=== PATIENT | female | born 1955 | race Caucasian/White ===

== ENCOUNTER → 2021-01-07 01:51 | Outpatient (CLI) | payer MEDICARE, OTHER, SELFPAY ==
[2021-01-07 18:54] LABS: SARS-CoV-2 RNA PCR Negative
== END ==
PROVIDERS: PCP Physician Assistant; Visit Provider Internal Medicine Gastroenterology
DX: Z01.812 Encounter for preprocedural laboratory examination (principal); Z20.822 Contact with and (suspected) exposure to COVID-19
CPT/HCPCS: C9803; U0003; U0005

== ENCOUNTER 2021-01-11 00:43 | Day surgery (SDC) | payer MEDICARE, OTHER, SELFPAY ==
[2021-01-03 08:29] VITALS: BMI 31.1
--- NOTE | 2021-01-11 08:42 | P.PNAN_ITS ---
Anes - Initial Pre Proc Eval Procedure: Operation Date: 01/11/21 13:00 Proposed Procedures p Screening Colonoscopy - Jordan Lundy MD Date/Time: 01/11/21 08:42 Surgeon: Jordan Lundy MD Pre Op Diagnosis: Neoplasm Screening Patient Data Age: 65 Gender: F Height: 1.65 m Weight: 85 kg Allergies Allergy/AdvReac Type Severity Reaction Status Date / Time No Known Allergies Allergy Mild Verified 01/11/21 11:41 Home Medications Medication Instructions Recorded Confirmed Type albuterol sulfate 1 puff INHALATION DAILY 01/03/21 01/03/21 History amlodipine 5 mg PO DAILY 01/03/21 01/03/21 History bupropion HCl 200 mg PO DAILY 01/03/21 01/03/21 History carvedilol 25 mg PO BID 01/03/21 01/03/21 History fluticasone propionate 1 mcg INTRANASAL DAILY 01/03/21 01/03/21 History hydrochlorothiazide 25 mg PO DAILY 01/03/21 01/03/21 History losartan 100 mg PO DAILY 01/03/21 01/03/21 History omeprazole 40 mg PO DAILY 01/03/21 01/03/21 History trazodone 225 mg PO DAILY 01/03/21 01/03/21 History venlafaxine 225 mg PO DAILY 01/03/21 01/03/21 History Patient hx anesthesia problems: none Family hx anesthesia problems: none [facility] Past Medical History Medical History (Updated 01/11/21 @ 08:42 by Darnell Vazquez MD) Anxiety Depression Hyperlipidemia Hypertension Obesity Surgical History Surgical History (Updated 01/10/21 @ 11:42 by Yaya Mcclain DO) History of hysterectomy Social History Social History Smoking status: Never smoker Alcohol intake: never Substance use type: does not use Living arrangements: with family Spiritual care concerns: No Anes - Eval Final PreProcedure Day of Procedure 01/11/21 08:42 Patient weight: obese Heart: regular rate and rhythm Lungs: clear to auscultation and normal air movement Airway: Mallampati scale class II Neurological: alert and oriented Last oral intake: >/= 8 hours ASA classification: III Emergent: no Anesthetic plan: proceed Anesthesia type and monitoring: general GIVS Informed Consent: The patient's anesthetic plan and its attendant risks and benefits were discussed with the patient/family/POA. Questions were solicited and answers provided to the satisfaction of the patient/family/POA.
[2021-01-11 11:42] VITALS: BP 179/79; PULSE 95; RESP 16; TEMP 36.5; O2SAT 96; BMI 30.1
[2021-01-11] MEDS: LACTATED RINGERS 1,000 ML 150 ML IV CONT (11:54)
--- NOTE | 2021-01-11 12:47 | PM.HPGS ---
History of Present Illness History of Present Illness Consent: Risks, benefits, and alternatives have been discussed and questions answered. Patient agrees to proceed with procedure. Chief complaint: Neoplasm Screening Narrative: Coty Cole is a 65 year old female here for screening colonoscopy, last one more than 10 years ago. Review of Systems Constitutional: Constitutional: Denies headache(s) and Denies weakness Eyes: Eyes: Denies blurry vision ENT: Reports Normal hearing present, Denies headache(s) and Denies neck pain Cardiovascular: Cardiovascular: Denies chest pain and Denies dyspnea Respiratory: Respiratory: Denies dyspnea Gastrointestinal: Gastrointestinal: Reports no additional gastrointestinal complaints Genitourinary: Genitourinary: Denies dysuria Musculoskeletal: Musculoskeletal: Denies neck pain Integumentary/Breasts: Skin/Breast: Denies dry skin Neurologic: Reports Normal hearing present, Denies headache(s) and Denies weakness Psychiatric: Psychiatric: Denies anxiety Endocrine: Endocrine: Denies change in body appearance Hematologic/Lymphatic: Hematologic/Lymphatic: Denies easy bleeding Allergic/Immunologic: Allergic/Immunologic: Denies urticaria PMFSH Past Medical History Medical History (Updated 01/11/21 @ 12:48 by Jordan Lundy MD) Anxiety Colon cancer screening Depression Hyperlipidemia Hypertension Obesity Surgical History Surgical History (Updated 01/10/21 @ 11:42 by Yaya Mcclain DO) History of hysterectomy Social History Social History Smoking status: Never smoker Alcohol intake: never Substance use type: does not use Living arrangements: with family Spiritual care concerns: No Meds Home Medications and Allergies Home Medications Medication Instructions Recorded Confirmed Type albuterol sulfate 1 puff INHALATION DAILY 01/03/21 01/03/21 History amlodipine 5 mg PO DAILY 01/03/21 01/03/21 History bupropion HCl 200 mg PO DAILY 01/03/21 01/03/21 History carvedilol 25 mg PO BID 01/03/21 01/03/21 History fluticasone propionate 1 mcg INTRANASAL DAILY 01/03/21 01/03/21 History hydrochlorothiazide 25 mg PO DAILY 01/03/21 01/03/21 History losartan 100 mg PO DAILY 01/03/21 01/03/21 History omeprazole 40 mg PO DAILY 01/03/21 01/03/21 History trazodone 225 mg PO DAILY 01/03/21 01/03/21 History venlafaxine 225 mg PO DAILY 01/03/21 01/03/21 History Allergies Allergy/AdvReac Type Severity Reaction Status Date / Time No Known Allergies Allergy Mild Verified 01/11/21 11:41 Vital Signs Vital Signs - 24 hr 01/11/21 11:42 Temperature 97.7 F Pulse Rate 95 Respiratory Rate 16 Blood Pressure 179/79 H Pulse Oximetry 96 Exam Const: General: comfortable and no acute distress HENMT: General nose exam: Normal nares present Eyes: General: appearance normal, both eyes and all related structures Neck: Neck: no JVD Resp: Auscultation: clear to auscultation bilaterally Cardio: Rate: regular rate Rhythm: regular rhythm GI: Inspection: non-distended GI Palp: Yes Soft to palpation Skin: General skin exam: normal color Neuro: General: gait normal Speech: normal speech Extrem: General: normal to inspection Psych: Mental Status: mental status grossly normal Assessment and Plan Assessment and plan (1) Colon cancer screening: Code(s): Z12.11 - Encounter for screening for malignant neoplasm of colon Status: Acute Assessment and Plan: proceed with colonoscopy
[2021-01-11 13:30] VITALS: BP 132/65; PULSE 83; RESP 15; O2SAT 100
[2021-01-11 13:40] VITALS: BP 150/67; PULSE 79; RESP 14; O2SAT 98
[2021-01-11 13:50] VITALS: BP 159/72; PULSE 82; RESP 9; O2SAT 100
== END 2021-01-11 14:01 | disposition home or self-care (01) ==
PROVIDERS: PCP Physician Assistant; Visit Provider Internal Medicine Gastroenterology
PROC: 0DJD8ZZ Inspection of Lower Intestinal Tract, Via Natural or Artificial Opening Endoscopic (ICD-10-PCS; CPT 45378; principal; 2021-01-11 13:00)
DX: Z12.11 Encounter for screening for malignant neoplasm of colon (principal); K57.30 Diverticulosis of large intestine without perforation or abscess without bleeding; K64.8 Other hemorrhoids; I10 Essential (primary) hypertension; E78.5 Hyperlipidemia, unspecified; F41.8 Other specified anxiety disorders; E66.9 Obesity, unspecified; Z68.30 Body mass index [BMI] 30.0-30.9, adult
CPT/HCPCS: G0121; J2704; J7120

== ENCOUNTER 2023-01-18 09:29 | Emergency (ER) | payer MEDICARE, OTHER, SELFPAY ==
[2023-01-18] VITALS (9 sets, daily range): BP systolic 117–154; BP diastolic 54–76; PULSE 71–82; RESP 13–24; TEMP 36.3; O2SAT 93–99
--- NOTE | ~2023-01-18 | CT_ITS ---
Non-contrast Head CT History: Dizziness, gait instability. Technique: Axial non-contrast imaging of the brain was performed. Dose reduction technique was used on this scan by utilizing automated exposure control and iterative reconstruction technique. The dose -length product (DLP) was 605.33 mGy-cm. Findings: There is no evidence of intracranial hemorrhage, mass lesion, or acute infarct. Brain par enchyma appears normal. The ventricles and subarachnoid spaces are normal in size. The calvarium ap pears normal. The visualized paranasal sinuses and mastoid air cells are clear. Impression: No significant abnormality seen. Reviewed, dictated and finalized at location . Impression: No significant abnormality seen.
--- NOTE | 2023-01-18 09:35 | ECG_ITS ---
Measurements Intervals [place] Rate: 71 P: 12 WY: 175 QRS: -1 QRSD: 101 T: 64 QT: 385 QTc: 421 Interpretive Statements SINUS RHYTHM DELAYED PRECORDIAL R/S TRANSITION LEFT VENTRICULAR HYPERTROPHY AND ST-T CHANGE BORDERLINE ECG NO PREVIOUS ECG AVAILABLE FOR COMPARISON Electronically Signed On 01-18-2023 12:37:54 CDT by Jose Alejandro Edwards D.O.
[2023-01-18 09:57] LABS: Basophils Absolute Auto 0.1 K/mm3 (0.0-0.1); Basophils Percent Auto 0.8 % (0.2-1.2); Eosinophils Percent Auto 0.1 % (0-4.4); Hematocrit 41.7 % (37.0-47.0); Hemoglobin 14.3 g/dL (12.0-15.0); Immature Granulocyte Absolute 0.04 K/mm3 (0.00-0.031); Immature Granulocyte Percent A 0.4 % (0-0.5); Lymphocytes Absolute Auto 1.85 K/mm3 (0.9-3.2); Lymphocytes Percent Auto 18.6 % (18.3-44.2); Mean Corpuscular HGB Conc 34.3 g/dl (32-36); Mean Corpuscular Hemoglobin 30.5 pg (26-34); Mean Corpuscular Volume 88.9 fl (80-100); Mean Platelet Volume 8.8 fl (7.4-10.4); Monocytes Absolute Auto 0.5 K/mm3 (0.1-0.6); Monocytes Percent Auto 4.8 % (2.6-8.5); Neutrophils Absolute Auto 7.5 K/mm3 (1.3-6.7); Neutrophils Percent Auto 75.3 % (45.5-73.1); Platelet Count Result 370 k/mm3 (150-375); Red Blood Count 4.69 M/mm3 (4.2-5.4); Red Cell Distribution Width 11.9 % (11.5-14.5); White Blood Count 9.9 K/mm3 (4.5-10.0)
[2023-01-18 10:05] LABS: Alanine Aminotransferase 22 U/L (6-35); Albumin Level 4.6 g/dL (3.5-5.1); Alkaline Phosphatase 77 U/L (38-126); Anion Gap 9 mmol/L (8-16); Aspartate Amino Transferase 25 U/L (14-36); Bilirubin,Total 0.6 mg/dL (0.2-1.3); Blood Urea Nitrogen 12 mg/dL (7-17); Calcium 9.4 mg/dL (8.4-10.2); Carbon Dioxide 31 mmol/L (22-30); Chloride 96 mmol/L (98-107); Estimated CRCL calculation 73 ml/min; Estimated Glomerular Filt Rate > 60; Glucose 119 mg/dL (65-110); Potassium 3.4 mmol/L (3.4-5.0); Sodium 136 mmol/L (137-145)
--- NOTE | 2023-01-18 10:08 | ED.DIZZY ---
HPI - Dizziness General Chief Complaint: Syncope Stated Complaint: dizziness Time Seen by Provider: 01/18/23 09:54 History of Present Illness HPI Narrative: 67-year-old female here for evaluation of dizziness for the past 2 days. Patient states that dizziness is there when she turns her head. Described as a room spinning sensation. She additionally notes a ringing sensation in her left ear with some decreased hearing. She denies any falls or loss of consciousness. No visual changes, nausea, vomiting, confusion, unilateral weakness. She has had no gait instability when the dizziness is not there. She states she has been under a lot of stress recently. Related Data Home Medications Medication Instructions Recorded Confirmed albuterol sulfate 90 mcg/actuation 1 puff inhalation DAILY 01/03/21 01/03/21 aerosol inhaler amlodipine 5 mg tablet 5 mg PO DAILY 01/03/21 01/03/21 bupropion HCl 200 mg tablet,12 hr 200 mg PO DAILY 01/03/21 01/03/21 sustained-release carvedilol 25 mg tablet 25 mg PO BID 01/03/21 01/03/21 fluticasone propionate 50 1 mcg intranasal DAILY 01/03/21 01/03/21 mcg/actuation nasal spray,suspension hydrochlorothiazide 25 mg tablet 25 mg PO DAILY 01/03/21 01/03/21 losartan 100 mg tablet 100 mg PO DAILY 01/03/21 01/03/21 omeprazole 40 mg capsule,delayed 40 mg PO DAILY 01/03/21 01/03/21 release trazodone 150 mg tablet 225 mg PO DAILY 01/03/21 01/03/21 venlafaxine 150 mg 225 mg PO DAILY 01/03/21 01/03/21 capsule,extended release 24 hr Allergies Allergy/AdvReac Type Severity Reaction Status Date / Time No Known Allergies Allergy Mild Verified 01/18/23 09:30 Review of Systems Review of Systems: Gen.: Reports dizziness Eyes: Denies eye pain or visual change ENT: Reports left ear fullness and ringing Respiratory: Denies shortness of breath or cough CV: Denies chest pain or palpitations GI: Denies abdominal pain nausea, emesis or diarrhea : denies burning, urgency, frequency or hematuria Musculoskeletal: Denies back pain or muscle pain Neuro: Denies numbness, tingling, weakness or focal weakness Skin: Denies rash Except as documented, all other systems reviewed and negative PMFSH Past Medical History Medical History Anxiety Colon cancer screening Depression Hyperlipidemia Hypertension Obesity Surgical History Surgical History History of hysterectomy Social History Social History Smoking status: Never smoker Alcohol intake: never Substance use type: does not use Living arrangements: with family Spiritual care concerns: No Exam Narrative: APPEARANCE: Well appearing, no pain in distress, well-nourished. Head: Normocephalic and atraumatic. EYES: PERRLA/EOMI, conjunctivae clear NOSE: No nasal drainage EARS: External ear normal in appearance THROAT: Oropharynx is clear. Mucous membranes are moist. NECK: Supple. No adenopathy, no masses. RESPIRATORY: Airway patent, respirations nonlabored. Clear to auscultation bilaterally, no rales, rhonchi, wheezing. CARDIOVASCULAR: Regular rate and rhythm without murmurs, rubs, or gallops. ABDOMINAL: Normoactive bowel sounds. Soft, nontender, nondistended. No rebound tenderness or guarding. MUSCULOSKELETAL: Extremities are warm and well-perfused. Moves all extremities well. No edema. NEURO: Cranial nerves II through XII intact. Normal test of skew. [id number] normal. [id number] normal. Normal speech. No focal neurologic deficits. SKIN: Skin is warm and dry. No rashes. PSYCHIATRIC: Normal affect/mood. Course Vital Signs Vital signs: Vital Signs Temperature 97.3 F L 01/18/23 09:43 Pulse Rate 82 01/18/23 09:43 Respiratory Rate 14 01/18/23 09:43 Blood Pressure 144/65 H 01/18/23 09:43 Pulse Oximetry 99 01/18/23 09:43 Oxygen Delivery Room Air 01/18/23 09:43 Temperature 97.
[2023-01-18] MEDS: SODIUM CHLORIDE 0.9% IV 1,000 ML 999 ML IV CONT (10:23)
[2023-01-18] MEDS: MECLIZINE HCL 25 MG TABLET PO (10:23)
== END 2023-01-18 12:56 | disposition home or self-care (01) ==
PROVIDERS: Emergency Medicine; Emergency Provider Physician Assistant; PCP Family Medicine
DX: H81.10 Benign paroxysmal vertigo, unspecified ear (principal); I10 Essential (primary) hypertension; F41.9 Anxiety disorder, unspecified; F32.A Depression, unspecified; Z79.51 Long term (current) use of inhaled steroids
CPT/HCPCS: 36415; 70450; 80053; 85025; 93005; 96360; 96361; 99284; A9270; J7030

== ENCOUNTER 2024-03-16 09:10 | Emergency (ER) | payer OTHER, SELFPAY ==
[2024-03-16] VITALS (9 sets, daily range): BP systolic 117–140; BP diastolic 64–75; PULSE 66–75; RESP 11–18; TEMP 36.7–36.8; O2SAT 96–98
--- NOTE | 2024-03-16 09:58 | ECG_ITS ---
SEE SCANNED COPY FOR CONFIRMED REPORT MTDD
--- NOTE | 2024-03-16 10:14 | ED.GENADULT ---
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 She has help in the week but none over the weekend. She recently moved and she the one that is responsible for a lot. She states that she hasn't wanted to eat / maybe a little nausea at times no vomiting NO fever/chills/ cough/ SOB/ CP / no numbness tingling <Yolanda Dominguez February, - Last Filed: 03/16/24 14:03> Related Data Home medications: Home Medications Medication Instructions Recorded Confirmed albuterol sulfate 90 mcg/actuation 1 puff inhalation DAILY 01/03/21 01/03/21 aerosol inhaler amlodipine 5 mg tablet 5 mg PO DAILY 01/03/21 01/03/21 carvedilol 25 mg tablet 25 mg PO BID 01/03/21 01/03/21 fluticasone propionate 50 1 mcg intranasal DAILY 01/03/21 01/03/21 mcg/actuation nasal spray,suspension losartan 100 mg tablet 100 mg PO DAILY 01/03/21 01/03/21 trazodone 150 mg tablet 225 mg PO DAILY 01/03/21 01/03/21 venlafaxine 150 mg 150 mg PO DAILY 12/26/23 12/26/23 capsule,extended release 24 hr <Yolanda Dominguez February, - Last Filed: 03/16/24 14:03> Allergies/adverse reactions: Allergies Allergy/AdvReac Type Severity Reaction Status Date / Time No Known Allergies Allergy Mild Verified 03/16/24 09:11 <Yolanda Dominguez February, PROCESSING MANAGER - Last Filed: 03/16/24 14:03> Review of Systems Review of Systems: CONSTITUTIONAL: Denies fever, chills, or sweats. EYES: Denies visual changes, redness, or discharge. ENT: Denies rhinorrhea, congestion, sore throat, or otalgia. CARDIOVASCULAR: Denies chest pain, palpitations, or edema. RESPIRATORY: Denies cough or dyspnea. GASTROINTESTINAL: Denies abdominal pain, nausea, vomiting, or diarrhea. GENITOURINARY: Denies dysuria or hematuria. SKIN: Denies rash or itching. MUSCULOSKELETAL: Denies back pain, joint pain, or myalgia. NEUROLOGIC: Denies headache, numbness, dizziness, or weakness. PSYCHIATRIC: Reports increased anxiety/ increased stress <Yolanda Donald APRN - Last Filed: 03/16/24 14:03> PMFSH Past Medical History Medical History: Medical History Anxiety Depression GERD (gastroesophageal reflux disease) Hyperlipidemia Hypertension <Yolanda Donald APRN - Last Filed: 03/16/24 14:03> Surgical History Surgical History: Surgical History H/O left knee surgery (~2005) History of hysterectomy (~2003) Hx of tonsillectomy <Yolanda Donald APRN - Last Filed: 03/16/24 14:03> Family History Family History: Family History Father Cancer Brain, unknown type. Grandparent Diabetes mellitus Mother Lymphoma <Yolanda Donald APRN - Last Filed: 03/16/24 14:03> Social History Social History: Social History Smoking status: Never smoker Alcohol intake: never Substance use type: does not use Living arrangements: with family Spiritual care concerns: No <Yolanda Donald APRN - Last Filed: 03/16/24 14:03> Exam Narrative: GENERAL: Well-appearing, well-nourished, and in no acute distress. HEAD: Normocephalic, atraumatic. EYES: PERRLA and EOMI. ENT: Nares clear, no rhinorrhea or epistaxis. Mucous membranes moist. Oropharynx without tonsillar hypertrophy exudate or other lesions. NECK: Supple. No adenopathy or masses. No carotid bruits or JVD CHEST: Clear to auscultation. No respiratory dist
[2024-03-16 10:21] LABS: Basophils Percent Auto 0.3 % (0.2-1.2); Hematocrit 38.2 % (37.0-47.0); Hemoglobin 13.2 g/dL (12.0-15.0); Immature Granulocyte Absolute 0.02 K/mm3 (0.00-0.031); Immature Granulocyte Percent A 0.3 % (0-0.5); Lymphocytes Percent Auto 25.2 % (18.3-44.2); Mean Corpuscular HGB Conc 34.6 g/dl (32-36); Mean Corpuscular Hemoglobin 30.3 pg (26-34); Mean Corpuscular Volume 87.8 fl (80-100); Mean Platelet Volume 8.8 fl (7.4-10.4); Monocytes Absolute Auto 0.6 K/mm3 (0.1-0.6); Monocytes Percent Auto 10.1 % (2.6-8.5); Neutrophils Absolute Auto 3.8 K/mm3 (1.3-6.7); Neutrophils Percent Auto 64.1 % (45.5-73.1); Platelet Count Result 310 k/mm3 (150-375); Red Blood Count 4.35 M/mm3 (4.2-5.4); Red Cell Distribution Width 12.1 % (11.5-14.5)
[2024-03-16 10:28] LABS: Appearance Urine Cloudy (Clear); Bacteria Urine 4+ /hpf; Bilirubin Urine Negative (Negative); Blood Urine 1+ (Negative); Color Urine Dark Yellow (Yellow); Glucose Urine UA Negative (Negative); Ketones Urine Negative (Negative); Leukocyte Esterase Ur 3+ LEU/UL (Negative); Nitrate Urine Positive (Negative); Non Pathogenic Casts 0-2; Protein Urine Trace mg/dL (Negative); Specific Grav Ur 1.015 (1.001-1.035); Squamous Epithelial Cell Urine Moderate /hpf (Few); WBC Urine >100 /hpf (0-3); pH Urine 8.5 (5.0-9.0)
[2024-03-16 10:33] LABS: Alanine Aminotransferase 17 U/L (6-35); Albumin Level 4.4 g/dL (3.5-5.1); Alkaline Phosphatase 81 U/L (38-126); Anion Gap 7 mmol/L (4-12); Aspartate Amino Transferase 25 U/L (14-36); Bilirubin,Total 0.6 mg/dL (0.2-1.3); Blood Urea Nitrogen 11 mg/dL (7-17); Calcium 9.4 mg/dL (8.4-10.2); Carbon Dioxide 28 mmol/L (22-30); Chloride 94 mmol/L (98-107); Estimated CRCL calculation 64 ml/min; Estimated Glomerular Filt Rate > 60; Glucose 116 mg/dL (65-110); Lipase 53 U/L (23-300); Potassium 4.1 mmol/L (3.4-5.0); Sodium 129 mmol/L (137-145)
[2024-03-16 10:35] LABS: Add Urine Microscopic? YES
[2024-03-16 10:45] LABS: Troponin I < 0.012 ng/mL (0.000-0.034)
[2024-03-16 10:59] LABS: Influenza A QL RT-PCR Negative (Negative); Influenza B QL RT-PCR Negative (Negative); RSV RNA, RT-PCR Negative (Negative); SARS-CoV-2 RNA PCR Negative (Negative)
[2024-03-16] MEDS: SODIUM CHLORIDE 0.9% IV 1,000 ML 999 ML IV CONT (11:00)
[2024-03-16 13:22] LABS: Anion Gap 7 mmol/L (4-12); Blood Urea Nitrogen 10 mg/dL (7-17); Calcium 9.1 mg/dL (8.4-10.2); Carbon Dioxide 27 mmol/L (22-30); Chloride 98 mmol/L (98-107); Estimated CRCL calculation 72 ml/min; Estimated Glomerular Filt Rate > 60; Glucose 100 mg/dL (65-110); Potassium 3.7 mmol/L (3.4-5.0); Sodium 132 mmol/L (137-145)
== END 2024-03-16 13:48 | disposition home or self-care (01) ==
PROVIDERS: Emergency Provider Nurse Practitioner Family; PCP Family Medicine
DX: N30.01 Acute cystitis with hematuria (principal); E86.0 Dehydration; Z11.52 Encounter for screening for COVID-19; I10 Essential (primary) hypertension; E78.5 Hyperlipidemia, unspecified; K21.9 Gastro-esophageal reflux disease without esophagitis; F41.9 Anxiety disorder, unspecified; F32.A Depression, unspecified; Z90.710 Acquired absence of both cervix and uterus; Z79.899 Other long term (current) drug therapy
CPT/HCPCS: 36415; 80048; 80053; 81001; 83690; 84484; 85025; 87077; 87086; 87088; 87186; 87637; 93005; 96361; 96365; 99284; J0696; J7030

== ENCOUNTER 2025-02-11 09:15 | Outpatient (CLI) | payer MEDICARE, SELFPAY ==
--- NOTE | ~2025-02-11 | CT_ITS ---
CT of the Abdomen and Pelvis: Indication: Abdominal Pain Technique: 2.5 mm axial scans were obtained through the abdomen and pelvis following intravenous adm inistration of 100 cc of Omnipaque 350. Dose reduction technique was used on this scan by utilizing a utomated exposure control and iterative reconstruction technique. The dose-length product (DLP) was 1 020.11 mGy-cm. Findings: Scans through the lung bases demonstrate 3 mm left lower lobe nodule. There is right middl e lobe scarring or atelectasis. The liver, spleen, pancreas, gallbladder, right adrenal gland, and kidneys are within normal limits. 2.6 cm left adrenal nodule is unchanged. No evidence of aortic aneurysm. No lymphadenopathy. No bowel obstruction or bowel wall thickening. Prominent stool suggests constipation. Mild haziness a nd shotty nodes in the central mesentery suggest mesenteric panniculitis. Images through the pelvis were performed. Probable mild diffuse bladder wall thickening noted. No pel yasmin mass. No ascites. Impression: Constipation. Possible cystitis. Correlate with urinalysis. Mesenteric panniculitis. Stable left adrenal nodule, compatible with benign lesion given stability. Reviewed, dictated and finalized at location . Impression: Constipation. Possible cystitis. Correlate with urinalysis. Mesenteric panniculitis. Stable left adrenal nodule, compatible with benign lesion given stability.
--- OUTSIDE RECORDS SUMMARY | 2025-02-11 09:44 | XMS_ITS | Encounter Summary ---
Author Name [facility] Organization [facility] Address [address] [place] [address] Care Team Providers Care Soap Mixer Name Role Phone WALDEMAR PRUITT Primary Care Provider Unavailkatey e Insurance Providers: All historical and current Section Date Range: From patient's date of to the date document was created. This section includes the names of all active insurance providers for the patient. Insurance Provider Type of Coverage Plan Name Start of Policy Coverage End of Policy Coverage Group Number Member ID Insurance Provider's Telephone Number Policy Baldwin's Name Patient's Relationship to Policy Baldwin [employer] (WNR) MEDICARE ADVANTAGE MCR ([facility]) Oct 28, 2023 [id number] [phone] MARINO BOOTH PATIENT -FO R-LIFE [place] RE FOR LIFE [facility] Jul 28, 2021 FOR LIFE [id number] MARINO BOOTH PATIENT -FO R-LIFE [place] RE FOR LIFE [facility] Jul 28, 2021 FOR LIFE [id number] [phone] KIM BOOTH [facility] ([facility]) MEDICARE ADVANTAGE MCR ([facility]) Jul 28, 2021 [id number] MARINO BOOTH PATIENT Selected Encounter This section includes the information on record at OR for the Encounter. Date/Time Encounter Type Encounter Description Reason Pro vider Source Dec 22, 2024 01:00 PM Outpatient Encounter ADMIN PAT ACTIVTIES (MASNONCT) IHE Encounter Template Text not used by OR Plan of Treatment: Future Appointments (+ 6 months) and Future Tests (+/- 45 days) The Plan of Treatment section includes future care activities for the patient from all OR [facility]. This section includes future appointments and future orders which are active, pending or scheduled. Future Appointments This section includes appointments that were scheduled to occur 6 months from the date of the Encounter, up to a maximum of 20 appointments. The data comes from all OR treatment facilities. Appointment Date/Time Appointment Type Appointme nt Facility Name Jan 07, 2025 10:00 AM AMBULATORY - NONE [facility] Jan 07, 2025 10:00 AM AMBULATORY - PSYCHIATRY [facility] Jan 11, 2025 01:30 PM AMBULATORY - NONE [facility] Jan 11, 2025 01:30 PM AMBULATORY - PSYCHIATRY [facility] Jan 21, 2025 10:00 AM AMBULATORY - NONE [facility] Jan 21, 2025 10:00 AM AMBULATORY - PSYCHIATRY [facility] Jan 26, 2025 02:00 PM AMBULATORY - NONE [facility] Jan 26, 2025 02:00 PM AMBULATORY - PSYCHIATRY [facility] Feb 16, 2025 10:00 AM AMBULATORY - PSYCHIATRY [facility] Feb 16, 2025 10:00 AM AMBULATORY - NONE [facility] March 23, 2025 12:30 PM AMBULATORY - PSYCHIATRY [facility] Encounter Notes: All associated encounter notes This section contains the clinical notes associated to the Encounter. Date/Time Encounter Note(s) Provider Source Dec 22, 2024 01:05 PM CAREGIVER CERTIFIC ATE: LOCAL TITLE: [facility] INDIVIDUAL PSYCHOTHERAPY NOTE STANDARD TITLE: CAREGIVER CERTIFICATE DATE OF NOTE: DEC 22, 2024@13:05 ENTRY DATE: DEC 22, 2024@13:05:23 AUTHOR: RICHARD GRIDER EXP COSIGNER: URGENCY: STATUS: COMPLETED [facility] - FOLLOW UP PSYCHOLOGY VISIT VIRTUAL PSYCHOTHERAPY PROGRAM FOR CAREGIVERS ([facility]) Patient identity was verified. Encounter was conducted via Telehealth Modality. Verbal informed consent was obtained from the Caregiver at the time of the encounter. CAPS-Lock procedure was completed to secure the virtual medical room. TYPE OF ENCOUNTER: [facility] VISIT Psychotherapy LENGTH OF ENCOUNTER: 45 minutes DATE: Nov TREATMENT GOAL(S): To identify strategies for improving connection with self and others and increase well-being. STRENGTHS: The CG appears to be amiable and motivated for treatment at this time. CONTENT/ISSUES ADDRESSED: The CG presented to this session on time and was seated in her living room at home, with her 3-year-old granddaughter seated beside her. She reported recovering from a bad bout of the flu this month, which has caused her to lose strength and energy. She reports her has also lost strength and functioning since being sick, and is not able to do basic tasks he was previously capable of, such as taking out the trash. She reported struggling with seasonal mood decline impacting her level of patience and irritability, though she reports feeling better today with warmer weather and sunshine. She shared her has become more passive and withdrawn, and has been displaying unusual compulsive behaviors such as weighing himself 10 times a day. The CG reports she does not know who to discuss his dementia symptoms with as he continues to decline. She was encouraged to connect with her 's new Geriatrics PCP and/or her [facility] coordinator to explore additional educational resources about dementia. The CG reports her daughter, Rosio, recently got her real estate license and will be helping to sell the CG's old house. INTERVENTIONS UTILIZED: Mindfulness-Based Cognitive Therapy (MBCT). Perioperative Educator guided the client's self-exploration and encouraged space for reflection and insight. Explored interpersonal dynamics in family relationships. Normalized stressors and reflected strengths. Elicited coping strategies. RESPONSE TO INTERVENTION: No adverse reactions. The client was engaged and collaborative throughout this session. MENTAL STATUS EXAMINATION WITH SAFETY ASSESSMENT/PLANNING: -Orientation: person, place, time -Mood was anxious -Affect: full; congruent with stated mood and symptoms. -Psychomotor: was relatively calm and responsive. -Speech: normal rate, rhythm, and volume. -Stream of Thought: maintained focus on topics and responded appropriately to questions. -Thought Content: no evidence of a formal thought disorder. -Insight and judgment: good -Fund of information: grossly intact; no remote memory impairments were noted. -Active suicidal ideation, planning, and intent was denied. Active homicidal ideation was denied. Protective factors were identified. SUICIDALITY/HOMICIDALITY: [x] asymptomatic [ ] current passive ideation [ ] current active ideation [ ] current plan [ ] meets criteria for involuntary admission RISK FACTORS: [ ] ETOH or Other Drug Abuse [ ] Hopelessness [ ] Impulsivity [x] Mood Exacerbation PROTECTIVE FACTORS: [x] Evidence of accessible and positively motivated social supports [x] Therapeutic alliance with a mental health professional [ ] Children dependent on the patient for primary care [x] Future-oriented plans and commitments [x] Personal, Cultural, or Yazidism Beliefs for Self-Preservation ASSESSMENT OF SUICIDE RISK: Low ASSESSMENT OF HOMICIDE RISK: Low IMPRESSION (DSM5 Criteria): Persistent Depressive Disorder (dysthymia; 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 RTC on 01/07 @ 1000. /es/ RICHARD GRIDER PSYCHOLOGIST Signed: 12/23/2024 07:53 RICHARD GRIDER [facility]
--- OUTSIDE RECORDS SUMMARY | 2025-02-11 09:44 | XMS_ITS | Clinical Summary ---
Author Organization [facility] [place] [address] [facility] Address [address] [place] [address] Care Team Providers Care Cartoonist Special Effects Name Role Phone Gerald De La Cruz MD Primary Care Provider Allergies No known active allergies Medications venlafaxine XR (EFFEXOR-XR) 150 mg 24 hr capsule 0 Active cholecalciferol (VITAMIN D-3) 5,000 unit capsule Take 1 capsule (5,000 Units total) by mouth daily Active cyanocobalamin (Vitamin B-12) 1,000 mcg tablet Take 1 tablet (1,000 mcg total) by mouth daily Active multivitamin with minerals tablet Take 1 tablet by mouth daily Active potassium 99 mg tablet Take by mouth Active triamcinolone (NASACORT) 55 mcg nasal inhalerIndications :Allergic Rhinitis,Chronic Non-Allergic Rhinitis Administer 2 sprays into each nostril daily Can increase to twice daily if symptoms persist 16.9 mL 11 2 Active cetirizine (ZyrTEC) 10 mg tabletIndications: Chronic Idiopathic Urticaria Take 1 tablet (10 mg total) by mouth 2 (two) times a day Can increase to 4 times daily for urticaria/myrtle oedema 60 tablet 11 2 Active traZODone (DESYREL) 150 mg tabletIndications: Moderate episode of recurrent major depressive disorder (HCC) Take 1 tablet (150 mg total) by mouth nightly at bedtime 90 tablet 3 3 Active buPROPion XL (WELLBUTRIN XL) 150 mg 24 hr tabletIndications: Moderate episode of recurrent major depressive disorder (HCC) Take 1 tablet (150 mg total) by mouth every morning 30 tablet 3 4 025 Active lidocaine (LIDODERM) 5 %Indications:Chron ic midline thoracic back pain Place 1 patch on the skin daily 30 patch 1 4 Active carvediloL (COREG) 25 mg tablet TAKE 1 TABLET(25 MG) BY MOUTH TWICE DAILY 200 tablet 1 4 Active amLODIPine (NORVASC) 10 mg tablet TAKE 1 TABLET(10 MG) BY MOUTH DAILY 90 tablet 1 4 Active rosuvastatin (CRESTOR) 20 mg tabletIndications: Mixed hyperlipidemia TAKE 1 TABLET(20 MG) BY MOUTH DAILY 90 tablet 1 4 Active omeprazole (PriLOSEC) 40 mg capsule TAKE 1 CAPSULE(40 MG) BY MOUTH DAILY 90 capsule 3 5 Active hyoscyamine (LEVSIN) 0.125 mg SL tablet Take 1 tablet (0.125 mg total) by mouth every 6 (six) hours as needed for cramping or diarrhea 30 tablet 3 5 Active losartan (COZAAR) 100 mg tablet Take 1 tablet (100 mg total) by mouth daily 90 tablet 3 5 Active Active Problems Problem Noted Date Diagnosed Date Encounter for Medicare annual wellness exam 06/28 Assessment & Plan (07/13/2024 10:19 AM CDT): A(n) yearly Medicare Annual Wellness Visit has been performed today. Coty Booth is not up to date on screening tests. She is in need of DEXA, Breast cancer screening, and Cholesterol screening. She is not up to date on needed preventative vaccinations; She is in need of Influenza. We discussed healthy lifestyle habits, educational material has been given. Medications reviewed, changes documented as per the medical record and discussed with patient along with risks vs benefits. Specific topics reviewed: drugs, ETOH, and tobacco, importance of regular dental care, importance of regular exercise, importance of varied diet, limit TV, media violence, minimize junk food, and seat belts. Return in 1 month Chronic thoracic back pain 04/02/2024 Assessment & Plan (04/02/2024 2:07 PM CDT): Patient denies thoracic back pain today. Will continue to monitor Class 1 obesity due to exces s calories without serious comorbidity with body mass index (BMI) of 30.0 to 30.9 in adult 03/05/2023 Assessment & Plan (04/14/2023 11:33 AM CDT): BMI Follow-up includes: nutrition counseling, exercise counseling, and education provided. Irritable bowel syndrome 05/01/2022 Assessment & Plan (05/01/2022 11:20 AM CDT): She has chronic abdominal pain with associated change in bowel habits. She reportedly had a colonoscopy few years ago at [facility]. She takes Levsin as needed with good results. She was advised to continue Levsin and probiotic. I will obtain and review the previous colonoscopy report. Deviated nasal septum 01/25/2022 Sciatica, right side 01/25/2022 Cough 11/14/2020 Assessment & Plan (04/02/2024 2:13 PM CDT): Patient states she had a history of asthma when she was in the when she was younger. Has not used an inhaler for a long time. Upon chart review I found a CT of her chest from 2020 that was done from a previous provider. It showed: a nonspecific density with mild volume loss of the right middle lobe along with tiny punctuate noncalcified nodules of the right upper lobe. Possibility of a central obstructing process right middle lobe can not be excluded. The tiny densities of the right upper lobe could relate to infection or possibly, a neoplasm. Bronchoscopy in 3-[address] follow-up of the right upper lobe punctuate nodules recommended Patient states she never had a follow-up CT because l ots of things happened eventually changed providers and follow-up was never done. She is continuing to complain of a chronic cough. Will order a follow-up chest CT due to cough and findings on CT Assessment & Plan (12/04/2020 8:21 PM MANAGER ENTERPRISE): Check CXR Recommend referral to pulmonary Medicare annual wellness visit, subsequent 10/09 Assessment & Plan (01/25/2022 6:21 PM CDT): A initial Medicare Annual Wellness Visit has been performed today. Coty Booth is not up to date on screening tests. She is in need of DEXA, Breast cancer screening, Hepatitis C and Colon cancer screening- these have been ordered. She is up to date on needed preventative vaccinations. Labs as ordered Look into available computer security specialist in the area. Hopefully will be able to set up with a [facility] provider but there may be some outside the group as well Reviewed medications, medical history. Continuing the current regimen for now Having a director of strategic initiatives eventually will probably be a good move as well. Continue p.r.n. Levsin and omeprazole. If diverticulitis symptoms start to recur, it would be best to follow-up sooner rather than later. If we catch it early, we may be able to avoid any kind of hospital stay, surgical risk etc.. Assessment & Plan (10/09/2020 9:10 AM MANAGER ENTERPRISE): Encouraged healthy lifestyle, good nutrition and exercise. Encouraged Calcium and Vitamin D and weight bearing exercise for bone health. Reviewed immunizations. Reviewed age appropirate screenings. Medicare Wellness Documentation is completed within the chart Breast cancer screening by mammogram 10/09/2020 Assessment & Plan (10/09/2020 9:10 AM MANAGER ENTERPRISE): Mammogram order provided Myopia 10/08/2020 Combined forms of age-related cataract 0 Presbyopia 10/08/2020 BMI 30.0-30.9,adult 08/15/2020 Assessment & Plan (09/30/2020 11:53 AM MANAGER ENTERPRISE): Obesity is unchanged. Discussed the patient's BMI. The BMI is above average. BMI management plan is completed. BMI Follow-up includes: nutrition counseling, exercise counseling and education provided. Assessment & Plan (08/15/2020 3:06 PM CDT): Obesity is unchanged. Discussed the patient's BMI. The BMI is above average. BMI management plan is completed. BMI Follow-up includes: nutrition counseling, exercise counseling and education provided. Seasonal allergies 07/23/2020 Assessment & Plan (04/02/2024 2:09 PM CDT): Seasonal allergies and chronic cough. Will refer to Allergy for testing Assessment & Plan (07/23/2020 6:28 PM CDT): Start antihistamine (Claritin OR Zyrtec), Mucinex 12hour and Steroid nasal spray (Flonase). Push fluids. Rest. Supportive care. If sxs worsen or don\'t improve, pt is to followup in the office. Gastroesophageal reflux disease without esophagi tis 04/23/2020 Assessment & Plan (05/01/2022 11:21 AM CDT): Chronic. Intermittently symptomatic. She was counseled about diet and eating habits. Advised to continue omeprazole 40 mg daily Assessment & Plan (10/09/2020 9:09 AM MANAGER ENTERPRISE): Continue PPI Assessment & Plan (04/23/2020 8:35 PM CDT): Discussed GERD at length including anatomy, behavioral changes (raise HOB, meal timings), dietary changes and medication options. Reviewed risks, benefits alternatives, side effects and proper use. Followup if sxs worsen or has hematochezia or hematemeis. Start pPI Slow transit constipation 04/23/2020 Assessment & Plan (10/09/2020 9:09 AM MANAGER ENTERPRISE): Increase fiber, exercise, water. Add stool softner.bid If sxs persist, may use Miralax. Assessment & Plan (04/23/2020 8:35 PM CDT): Increase fiber, exercise, water and colace. Reviewed warning signs of an acute abdomen Obesity (BMI 30-39.9) 04/09/2019 Assessment & Plan (10/10/2023 1:46 PM MANAGER ENTERPRISE): BMI 30.4 Discussed diet modifications including increasing protein intake, decreasing added sugars, adding keto options - bread, to help with weight loss. Discussed risks of weight loss medications for someone who has a normal A1c, at risk for hypoglycemia and falls (sonia - reliant on her for ADLs due to severe dementia), as well causing dehydration (phentermine) which may worsen kidney function. Pt expressed understanding and agrees to adjust diet to start and follow up. Assessment & Plan (09/30/2020 11:53 AM MANAGER ENTERPRISE): Obesity is unchanged. Discussed the patient's BMI. The BMI is above average. BMI management plan is completed. BMI Follow-up includes: nutrition counseling, exercise counseling and education provided. Assessment & Plan (01/22/2020 8:08 AM CDT): Obesity is unchanged. Discussed the patient's BMI. The BMI is above average. BMI management plan is completed. BMI Follow-up includes: nutrition counseling, exercise counseling and education provided. Assessment & Plan (09/04/2019 9:51 PM MANAGER ENTERPRISE): Obesity is unchanged. Discussed the patient's BMI. The BMI is above average. BMI management plan is completed. BMI Follow-up includes: nutrition counseling, exercise counseling and education provided. Assessment & Plan (04/09/2019 3:02 PM CDT): Obesity is unchanged. Discussed the patient's BMI. The BMI is above average; BMI management plan is completed. General weight loss/lifestyle modification strategies discussed (elicit support from others; identify saboteurs; non-food rewards, etc). Encouraged increased exercise. Pre-diabetes 04/09/2019 Assessment & Plan (10/09/2020 9:10 AM MANAGER ENTERPRISE): Pre-diabetes is a precursor to Dm. Stressed importance of working on diet (decrease your simple sugars and one carbohydrate with each meal) and increase you exercise to achieve weight loss and this will help prevent you from progressing to diabetes. Assessment & Plan (09/04/2019 9:54 PM MANAGER ENTERPRISE): This is a significant, separately identifiable problem that was evaluated and managed on the same day as the wellness exam Pre-diabetes is a precursor to Dm. Stressed importance of working on diet (decrease your simple sugars and one carbohydrate with each meal) and increase you exercise to achieve weight loss and this will help prevent you from progressing to diabetes. Assessment & Plan (04/11/2019 3:19 PM CDT): Pre-diabetes is a precursor to Dm. Stressed importance of working on diet (decrease your simple sugars and one carbohydrate with each meal) and increase you exercise to achieve weight loss and this will help prevent you from progressing to diabetes. Mixed hyperlipidemia 04/09/2019 Assessment & Plan (04/02/2024 2:08 PM CDT): Stable. Can continue rosuvastatin. Follow up with Dr. De La Cruz for med check and physical Assessment & Plan (10/09/2020 9:10 AM MANAGER ENTERPRISE): Encouraged patient to follow fat/low chol diet like the Mediterranean diet. Increase good fats in the diet. Increase exercise. Monitor labs as needed. Assessment & Plan (09/04/2019 9:52 PM MANAGER ENTERPRISE): Encouraged patient to continue low fat/low chol diet. Continue exercise. Increase good fats in the diet. Monitor labs as needed. D Assessment & Plan (04/11/2019 3:19 PM CDT): Encouraged patient to continue low fat/low chol diet. Continue exercise. Increase good fats in the diet. Monitor labs as needed. Primary osteoarthritis 08/04/2018 Moderate episode of recurrent major depressive d isorder 06/03/2017 Overview (08/29/2020): managed by her psychiatrist Assessment & Plan (10/09/2020 9:11 AM MANAGER ENTERPRISE): Managed by her psychiatrist Menopause 01/30/2017 Mixed anxiety depressive disorder 03/13/2014 Overview (01/30/2017): Depression with anxiety Assessment & Plan (01/24/2020 1:39 PM CDT): Provided names of new psychiatrists in the area. Provided names of counselors in the area. Encouraged to establish with a new provider to try to adjust her meds. If has increased sxs or s/h thoughts she is to call immediately. Encouraged to get out daily to walk the dog as will help with her mental health too. Assessment & Plan (09/04/2019 9:54 PM MANAGER ENTERPRISE): This is a significant, separately identifiable problem that was evaluated and managed on the same day as the wellness exam No suicidal or homicidal thoughts. She is to call immediately or go to ER if occurs. Discussed at length considering changing the situation that is contributing to her stress. She will consider. Encouraged to continue to follow with psychiatrist as she is on a combination the I don't usually prescribe. Provided names/listing of pyschiatrists and counselors in the area. Assessment & Plan (04/11/2019 3:19 PM CDT): Stable with current regimen Atopic rhinitis 03/13/2014 Overview (01/31/2017): Allergic rhinitis Hypertension 03/13/2014 Overview (01/31/2017): HTN (hypertension) Assessment & Plan (04/02/2024 2:07 PM CDT): Increase amlodipine to 10 mg once daily. Continue to monitor blood pressure at home if able. Follow up 2-[address] De La Cruz for annual physical Assessment & Plan (11/14/2020 10:06 AM MANAGER ENTERPRISE): Readings are high at home but unsure if cuff is accurate. She will come in tomorrow to calibrate the cuff before adjusting the medication. Assessment & Plan (10/09/2020 9:12 AM MANAGER ENTERPRISE): This is a significant, separately identifiable problem that was evaluated and managed on the same day as the wellness exam Bp is stable/in acceptable range for any co-morbidities. Encouraged to limit sodium intake and exercise for weight control. Continue losartan and HCTZ, coreg and amlodipine. Record at home and call in a few weeks with the ambulatory readings. Assessment & Plan (09/04/2019 9:51 PM MANAGER ENTERPRISE): Bp is stable/in acceptable range for any co-morbidities. Encouraged to limit sodium intake and exercise for weight control. Assessment & Plan (04/11/2019 3:18 PM CDT): Bp is stable/in acceptable range for any co-morbidities. Encouraged to limit sodium intake and exercise for weight control. Vitamin D deficiency Resolved Problems Problem Noted Date Diagnosed Date Resolved Date Closed fracture of lateral malleolus 01/25/2022 04/02/2024 Diverticulitis 01/25/2022 04/02/2024 Gastro-esophageal reflux dis ease with esophagitis 01/20/2021 05/01/2022 Sensation of lump in throat 01/20/2021 04/02/2024 Colon cancer screening 10/09/202004/02 Assessment & Plan (10/09/2020 9:10 AM MANAGER ENTERPRISE): Refer for screening colonoscopy Hearing loss of left ear due to cerumen impaction 09/30/2020 04/02/2024 Assessment & Plan (10/09/2020 9:12 AM MANAGER ENTERPRISE): This is a significant, separately identifiable problem that was evaluated and managed on the same day as the wellness exam Start otc DeBrox as plug appears very hard. Followup in a few weeks to wash ears in the office is sxs persist. Chronic pain of right thumb 08/15/2020 04/02/2024 Assessment & Plan (09/25/2020 9:38 PM MANAGER ENTERPRISE): May use NSAID and ice but recommend referral for definitive treatment. Will hold off on xrays and defer to Ortho since there is no known injury. Need for immunization against influenza 08/15/2020 10/09/2020 Assessment & Plan (09/25/2020 9:39 PM MANAGER ENTERPRISE): Updated in office today Generalized abdominal pain 04/23/2020 0 04/02/2024 Assessment & Plan (04/23/2020 8:33 PM CDT): Sxs of GERD and constipation. Will focus on these dx and if sxs persist, may need additional workup Gastritis 01/24/2020 04/02/2024 Assessment & Plan (05/01/2022 11:23 AM CDT): She reportedly had endoscopy at [facility] that revealed gastritis . Takes PPI and p.r.n. Levsin. I will obtain and review the previous endoscopy report. Advised to continue p.r.n. Levsin and PPI. Assessment & Plan (01/24/2020 1:47 PM CDT): Start NSAIDs Will monitor. If sxs persists, may consider imaging/referral to PT but will wait until after COVID BMI 32.0-32.9,adult 01/22/2020 08/15/20 Assessment & Plan (01/22/2020 8:09 AM CDT): Obesity is unchanged. Discussed the patient's BMI. The BMI is above average. BMI management plan is completed. BMI Follow-up includes: nutrition counseling, exercise counseling and education provided. Breast cancer screening by mammogram 09/04/2019 01/24/2020 Assessment & Plan (09/04/2019 9:52 PM MANAGER ENTERPRISE): Mammogram order provided Medicare annual wellness visit, subsequent 09/04/2019 01/24/2020 Assessment & Plan (09/04/2019 9:52 PM MANAGER ENTERPRISE): Encouraged healthy lifestyle, good nutrition and exercise. Encouraged Calcium and Vitamin D and weight bearing exercise for bone health. Reviewed immunizations Reviewed age appropirate screenings. Documenation on the chart Left foot pain 04/11/2019 04/02/2024 Assessment & Plan (04/11/2019 3:16 PM CDT): Foot pain ??? Neuroma. Send to Registered Massage Therapist for further evaluation. RUQ abdominal pain 04/11/2019 4 Assessment & Plan (09/04/2019 9:51 PM MANAGER ENTERPRISE): This is a significant, separately identifiable problem that was evaluated and managed on the same day as the wellness exam Completely negative workup in ER> Encouraged colace for her harder bulky stools. Increase fluids. Monitor closely Assessment & Plan (04/11/2019 3:18 PM CDT): Start gallbladder workup with [facility]US. If negative may need HIDA. Reviewed Gall bladder diet and hand out provided. Start Omeprazole. BMI 34.0-34.9,adult 04/09/2019 01/22/20 20 Assessment & Plan (09/04/2019 9:52 PM MANAGER ENTERPRISE): Obesity is unchanged. Discussed the patient's BMI. The BMI is above average. BMI management plan is completed. BMI Follow-up includes: nutrition counseling, exercise counseling and education provided. Assessment & Plan (04/09/2019 3:02 PM CDT): Obesity is unchanged. Discussed the patient's BMI. The BMI is above average; BMI management plan is completed. General weight loss/lifestyle modification strategies discussed (elicit support from others; identify saboteurs; non-food rewards, etc). Encouraged increased exercise. Balance problem 03/24/2018 04/02/2024 Cataract 01/19/2017 04/02/2024 Mental health disorder 12/18/201604/02 Overview (08/29/2020): specific dx not known. Follows with Jackelyn Pride. Angioedema 11/29/2016 04/02/2024 Overview (08/29/2020): unknown irritant. Referred to Filing Machine Operator Asthma 03/13/2014 11/14/2020 Overview (01/31/2017): Asthma Assessment & Plan (04/11/2019 3:18 PM CDT): Encounters Date Type Department Care Team Description 01/07/2025 Telephone [facility] Primary Care at [address] [phone] Gerald De La Cruz MD Med Refill 01/05/2025 Results Follow-Up [facility] Medical [facility] Primary Care at [address] [phone] Gerald De La Cruz MD 01/04/2025 10:30 AM CDT Lab [facility] Outpatient Lab at [address] [phone] Mixed hyperlipidemia (Primary Dx); Hypertension 01/04/2025 10:26 AM CDT - 01/04/2025 11:59 PM CDT Hospital Encounter [address] [address] Primary hypertension; Vitamin D deficiency Discharge Disposition: Discharge to home or self care 01/04/2025 9:45 AM CDT Office Visit [facility] Primary Care at [address] [phone] Gerald De La Cruz MD Mixed hyperlipidemia (Primary Dx); Primary hypertension; Vitamin D deficiency; Pre-diabetes; Breast cancer screening by mammogram; Screening for osteoporosis; Asymptomatic menopausal state; Gastroesophageal reflux disease without esophagitis; Chronic gastritis without bleeding, unspecified gastritis type; Encounter for screening mammogram for malignant neoplasm of breast 01/04/2025 Telephone [facility] Primary Care at [address] [phone] Minerva Thompson MA 12/11/2024 Nurse Triage [facility] Primary Care at [address] [phone] Gerald De La Cruz MD 12/11/2024 Telephone [facility] Primary Care at [address] [phone] Gerald De La Cruz MD from Last 3 Months Immunizations Immunization Administration Dates Next Due Influenza, Quadrivalent, Hig h Dose, Preservative Free, Intrr 10/10/2023,09/04/2022 Influenza, Quadrivalent, Spl it, Intramuscular 07/27/2020 Influenza, Quadrivalent, Spl it, Preservative Free, Intramuscular 08/15/2020,09/04/2019,07/29/2018,08/23 Influenza, Trivalent, High D ose, Split, Preservative Free, Intramuscular 08/06/2024 Influenza, Trivalent, IM (MDV) 08/15/2016 Influenza, Unspecified 10/28/2022(Deferr ed: Patient Refused),10/28/2021(Deferred: Patient Refused),07/19/2021,06/29/2021, 018 Pneumococcal Conjugate Pcv20 07/07/2024 Td, adsorbed 10/28/2005 Tdap 05/09/2015 Surgical History Surgery Date Site/Laterality Comments OTHER SURGICAL HISTORY L KNEE FRACTURE: PINNED OTHER SURGICAL HISTORY 10/28/2003 - 10/27/2004 ABNL PAP/ HPV: Hysterectomy, total abdominal, BSO TONSILLECTOMY Tonsillectomy HYSTERECTOMY 2003 COLONOSCOPY 08/11/2010 KNEE SURGERY Left ADENOIDECTOMY CATARACT EXTRACTION May 2022 FRACTURE SURGERY Medical History Medical History Date Comments Hx Other Medical L KNEE FRACTURE Hx Other Medical ABNL PAP/ HPV H/O degenerative disc disease Arthritis Allergic Anxiety 1987 Depression 1987 Hypertension 1986 Hyperlipidemia GERD (gastroesophageal reflux disease) 2014 Headache Vitamin D deficiency Diverticulosis Scoliosis deformity of spine Gastritis last EGD in 2020 Lung nodule Family History Medical History Relation Name Comments No Known Problems Brother 1 No Known Problems Brother 2 Arthritis Daughter 1 Rosio Bryant Depression Daughter 1 Rosio Bryant Depression Daughter 2 Nina Lalla Hypertension Daughter 2 Nina Lalla Obesity Daughter 2 Nina Lalla Rashes / Skin problems Daughter 2 Nina Lalla Brain cancer Father Cancer -brain; Arthritis Maternal Grandfather Caitsel Leukemia Mother Cancer -leukemi a; Lung cancer Mother Cancer -lung; Diabetes Paternal Grandmother Kareen Diabetes type II Paternal Grandmother Kareen Williamson rubén -Type 2; Relation Name Status Comments Brother 1 Alive Brother 2 Alive Daughter 1 Rosio Bryant Daughter 2 Nina Lalla Father Maternal Grandfather Bereniceeisel Alive Mother Paternal Grandmother Kareen Social History Tobacco Use Types Packs/Day Years Used Date Smoking Tobacco: Never Cigarettes Passive Smoke Exposure: Never Smokeless Tobacco: Never Tobacco Cessation:Counseling Given: Not Answered Alcohol Use Standard Drinks/Week Comments Never 0 (1 standard drink = 0.6 oz pur e alcohol) AUDIT-C Answer Date Recorded Frequency of Alcohol Consumption Not on file 10/10/2023 Q2: How many drinks containi ng alcohol do you have on a typical day when you are drinking? Patient does not drink Q3: How often do you have si x or more drinks on one occasion? Never 10/10/2023 PHQ-2 Answer Date Recorded PHQ-2 Total Score (If total score is 3 or more points, staff should administer the PHQ-9) 6 01/04/2025 Housing Stability Vital Sign Answer Danny e Recorded Unable to Pay for Housing in the Last Year Not o n file 01/25/2022 In the last 12 months, how many places have you lived? 3 01/25/2022 Unstable Housing in the Last Year Not on file 01/25/2022 PHQ-9 Answer Date Recorded PHQ-9 Total Score 12 01/04/2025 Comments No Sex and Gender Information Value Date Recorded Sex Assigned at Not on file Legal Sex Female 8:42 AM MANAGER ENTERPRISE Gender Identity Female 08/28/2019 4:50 PM CDT Sexual Orientation Choose not to disclose 2018 4:50 PM CDT Obstetrics History Last Filed Vital Signs Vital Sign Reading Time Taken Comments Blood Pressure 120/80 01/04/2025 9:57 AM CDT Pulse 70 01/04/2025 9:57 AM CDT Temperature 36.1 C (96.9 F) 01/04/2025 9:57 AM CDT Respiratory Rate 18 01/04/2025 9:57 AM CDT Oxygen Saturation 97% 01/04/2025 9:57 AM CDT Inhaled Oxygen Concentration - - Weight 81.2 kg (179 lb) 01/04/2025 9:57 AM CDT Height 165.1 cm (5' 5 ) 01/04/2025 9:57 AM CDT Body Mass Index 29.79 01/04/2025 9:57 AM CDT Plan of Treatment Health Maintenance Due Date Last Done Comments Breast Cancer Screening-Mammogram 1955 Osteoporosis Screening-Bone Density Scan 1955 Covid-19 Vaccine ( season) 2024 10/23/2021, 02/21/2021, 01/24/2021 DTaP/Tdap/Td Vaccine (2 - Td or Tdap) 05/09/2025 05/09/2015, 10/28/2005 Fall Risk Assessment 07/07/2025 07/07/2024, 04/02/2024, 10/10/2023, Additional history exists Well Visit 65+ 07/07/2025 07/07/2024, /10/2021, 09/30/2020, Additional history exists Zoster Vaccine (1 of 2) 07/07/2025 Post poned from 2006 (Insurance / Financial) Depression Screening 01/04/2026 01/04/2025, 01/04/2025, 07/07/2024, Additional history exists Colon Cancer Screening-Colonoscopy 01/11/2031 01/11/2021, 08/11/2010 Colon Cancer Screening-CT Colonography Discontinued 01/11/2021, 08/11/2010 Colon Cancer Screening-DNA Stool Discontinued 01/11/2021, 08/11/2010 Colon Cancer Screening-FIT Discontinued 01/11/2021, Colon Cancer Screening-Sigmoidoscopy Discontinued 01/11/2021, 08/11/2010 Hepatitis C Screening Completed 03/15/2022 Hepatitis B Screening Completed 07/07/2024 Pneumococcal vaccine 65+ Completed 07/07/2024 Influenza Vaccine Completed 08/06/2024, , 09/04/2022, Additional history exists Procedures Procedure Name Priority Date/Time Associated Diagnosis Comments EGFR Routine 01/04/2025 10:26 AM CDT Primary hypertension DIFFERENTIAL AUTO Routine 01/04/2025 10: 26 AM CDT Primary hypertension CBC WITH AUTO DIFFERENTIAL Routine 01/04/2025 10:26 AM CDT Primary hypertension COMPREHENSIVE METABOLIC PANEL Routine 01/04/2025 10:26 AM CDT Primary hypertension LIPID PANEL Routine 01/04/2025 10:26 AM CDT Primary hypertension THYROID FUNCTION CASCADE Routine 01/04/2025 10:26 AM CDT Primary hypertension HEPATITIS C ANTIBODY Routine 03/15/2022 11:07 AM CDT Need for hepatitis C screening test COLONOSCOPY Routine 01/11/2021 from Last 3 Months or Most Recently Relevant to Health Maintenance Results * eGFR (01/04/2025 10:26 AM CDT) eGFR 87 >=60 mL/min/1. 73 m2 Comment: Interpretive Data Reference Interval Normal >/= 90 mL/min/1.73m2 Mildly decreased* 60 - 89 mL/min/1.73m2 Mildly to moderately decreased 45 - 59 mL/min/1.73m2 Moderately to severely decreased 30 - 44 mL/min/1.73m2 Severely decreased 15 - 29 mL/min/1.73m2 Kidney Failure < 15 mL/min/1.73m2 *Relative to young adult level Estimated glomerular filtration rate is determined by the 2020 CKD-EPI equation recommended by the National Kidney Foundation (A Unifying Approach to GFR Estimation: Recommendations of the NKF-ASK Task Force on Reassessing the Inclusion of Race in Diagnosing Kidney Disease, JASN 2020). The CKD-EPI equation should not be used for patients with unstable renal function and has not been validated in children and those over 70. Current interpretive data was last reviewed 2021. Blood 01/04/2025 10:2 6 AM CDT 01/04/2025 3:22 PM CDT us Gerald De La Cruz MD LAB BLOOD ORDERABLES Final Result ALHAJI [id number] [place] [address] * Differential, auto (01/04/2025 10:26 AM CDT) Neutrophil abs 5.3 1.5 - 6.5 K/cumm Imm gran abs 0.0 0.0 - 0.1 K/cumm [facility] Lymphocyte abs 1.8 0.8 - 3.3 K/cumm [facility] Monocyte abs 0.7 0.2 - 0.8 K/cumm [facility] Eosinophil abs 0.0 0.0 - 0.5 K/cumm [facility] Basophil abs 0.1 0.0 - 0.1 K/cumm [facility] Neutrophil pct 67.1 % [facility]IN Comment: Interpretive Data Percent cell count reference ranges are not reported, since discordance with absolute values may lead to misinterpretation of CBC data. Current Interpretive Data was last revised on 2018. Imm gran pct 0.3 % ALHAJI Comment: Interpretive Data Percent cell count reference ranges are not reported, since discordance with absolute values may lead to misinterpretation of CBC data. Current Interpretive Data was last revised on 2018. Lymphocyte pct 23.2 % AL[facility]JI Comment: Interpretive Data Percent cell count reference ranges are not reported, since discordance with absolute values may lead to misinterpretation of CBC data. Current Interpretive Data was last revised on 2018. Monocyte pct 8.5 % AL[facility]JI Comment: Interpretive Data Percent cell count reference ranges are not reported, since discordance with absolute values may lead to misinterpretation of CBC data. Current Interpretive Data was last revised on 2018. Eosinophil pct 0.1 % ALHAJI Comment: Interpretive Data Percent cell count reference ranges are not reported, since discordance with absolute values may lead to misinterpretation of CBC data. Current Interpretive Data was last revised on 2018. Basophil pct 0.8 % [facility] Comment: Interpretive Data Percent cell count reference ranges are not reported, since discordance with absolute values may lead to misinterpretation of CBC data. Current Interpretive Data was last revised on 2018. Blood 01/04/2025 10:2 6 AM CDT 01/04/2025 3:19 PM CDT us Gerald De La Cruz MD LAB BLOOD ORDERABLES Final Result ALHAJI [id number] Department [place] [address] * Thyroid Function [place] (01/04/2025 10:26 AM CDT) TSH 0.55 0.30 - 4.20 mcIUnit/mL Blood 01/04/2025 10:2 6 AM CDT 01/04/2025 3:19 PM CDT Gerald De La Cruz MD LAB BLOOD ORDERABLES Final Result Performing Organization Address [facility] Co de Phone Number ALHAJI LLOYD [id number] Department [employer] [place], [place] [id number] * (ABNORMAL) CBC with auto differential (01/04/2025 10:26 AM CDT) WBC 7.9 3.8 - 9.9 K/cumm Hgb 12.9 11.9 - 15.5 g/dL [facility] CH Hct 40.2 35.6 - 45.5 % [facility] CH Plt 344 150 - 400 K/cumm [facility] CH MPV 9.8 9.1 - 12.3 fL [facility] CH RBC 4.33 3.90 - 5.20 M/cumm [facility] CH MCV 92.8 81.3 - 96.4 fL [facility] CH MCH 29.8 27.1 - 33.3 pg [facility] CH MCHC 32.1(L) 32.3 - 35.7 g/dL [facility] CH RDW CV 12.8 11.1 - 14.9 % [facility] CH RDW SD 43.8 35.7 - 48.1 fL [facility] CH NRBC abs 0.00 0.00 - 0.01 K/cumm [facility] CH Blood 01/04/2025 10:2 6 AM CDT 01/04/2025 3:19 PM CDT Gerald De La Cruz MD LAB BLOOD ORDERABLES Final Result Performing Organization Address [facility] Co de Phone Number ALHAJI LLOYD [address] Department [place] [place] [address] * Lipid panel (01/04/2025 10:26 AM CDT) Cholesterol 118 30 - 199 mg/dL Comment: Interpretive Data Ages < or = 19 years Acceptable: <170 mg/dL Borderline high: 170-199 mg/dL High: >or= 200 mg/dL Ages > or = 20 years Desirable: <200 mg/dL Borderline high: 200-239 mg/dL High: >or= 240 mg/dL Literature References: 1. Expert Panel on Integrated Guidelines for Cardiovascular Health and Risk Reduction in Children and Adolescents. Pediatrics 2011;128:S213 2. NCEP Expert Panel. Circulation 2004;110:227 Current Interpretive Data was last revised on 2018. Triglycerides 83 <=149 mg/dL ALHAJI Comment: Interpretive Data Ages < or = 9 years Acceptable: <75 mg/dL Borderline high: 75-99 mg/dL High: >or= 100 mg/dL Ages 10 to 20 years Acceptable: <90 mg/dL Borderline high: 90-129 mg/dL High: >or= 130 mg/dL Ages > or = 20 years Desirable: <150 mg/dL Borderline high: 150-199 mg/dL High: 200-499 mg/dL Very high: >or= 499 mg/dL Literature References: 1. Expert Panel on Integrated Guidelines for Cardiovascular Health and Risk Reduction in Children and Adolescents. Pediatrics 2011;128:S213 2. NCEP Expert Panel. Circulation 2004;110:227 Current Interpretive Data was last revised on 2018. HDL 54 >=40 mg/dL ALHAJI Comment: Interpretive Data Ages < or = 19 years Acceptable: >45 mg/dL Borderline low: 40-45 mg/dL Low: <40 mg/dL Ages > or = 20 years Desirable: >or= 60 mg/dL Low: <40 mg/dL Literature References: 1. Expert Panel on Integrated Guidelines for Cardiovascular Health and Risk Reduction in Children and Adolescents. Pediatrics 2011;128:S213 2. NCEP Expert Panel. Circulation 2004;110:227 Current Interpretive Data was last revised on 2018. LDL, calculated 48 <=129 mg/dL ALHAJI Comment: Interpretive Data Ages < or = 19 years Acceptable: <110 mg/dL Borderline high: 110-129 mg/dL High: >or= 130 mg/dL Ages > or = 20 years Optimal: <100 mg/dL Near optimal: 100-129 mg/dL Borderline high: 130-159 mg/dL High: >160 mg/dL Calculated using the Casas LDL-C estimating equation. This equation was implemented on 2024. Prior to this date LDL-C was estimated using the Friedewald equation. Literature References: 1. Expert Panel on Integrated Guidelines for Cardiovascular Health and Risk Reduction in Children and Adolescents. Pediatrics 2011;128:S213 2. NCEP Expert Panel. Circulation 2004;110:227 3. Augusto M et al. ANGIE Cardiol. 2020 February 25;5(5):540-548. doi: 10.1001/[email or web address] Current Interpretive Data was last revised on 2024. Non-HDL Cholesterol 64 mg/dL [facility] Comment: Interpretive Data Ages < or = 19 years Acceptable: <120 mg/dL Borderline high: 120-144 mg/dL High: >145 mg/dL Ages > or = 20 years When triglycerides are >200 mg/dL, Non-HDL cholesterol is a secondary target of therapy with treatment goals that are 30 mg/dL greater than the LDL cholesterol target. Literature References: 1. Expert Panel on Integrated Guidelines for Cardiovascular Health and Risk Reduction in Children and Adolescents. Pediatrics 2011;128:S213 2. NCEP Expert Panel. Circulation 2004;110:227 Current Interpretive Data was last revised on 2018. Chol/HDL ratio 2 [facility] Blood 01/04/2025 10:2 6 AM CDT 01/04/2025 3:19 PM CDT us Gerald De La Cruz MD LAB BLOOD ORDERABLES Final Result [facility] [address] [place] [address] * Comprehensive metabolic panel (01/04/2025 10:26 AM CDT) Sodium 136 135 - 145 mmol/L Potassium, pl 4.3 3.3 - 4.9 mmol/L [facility] Chloride 97 97 - 110 mmol/L [facility] CH CO2 25 22 - 32 mmol/L [facility] CH Anion gap 14 2 - 15 mmol/L [facility] CH BUN 10 6 - 25 mg/dL [facility] Creatinine 0.75 0.60 - 1.10 mg/dL [facility] Glucose 127 70 - 199 mg/dL [facility] Comment: Interpretive Data Fasting glucose >/= 126 mg/dl is diagnostic for diabetes. Fasting is defined as no caloric intake for at least 8 hours. Fasting glucose between 100 mg/dl to 125 mg/dl is diagnostic of prediabetes. In a patient with classic symptoms of hyperglycemia or hyperglycemic crisis, a random glucose >/= 200 mg/dl is diagnostic for diabetes. In the absence of unequivocal hyperglycemia, results should be confirmed by repeat testing. The classification and Diagnosis of Diabetes Diabetes Care 2021; 46: S19-S40. Current interpretive data was last revised 2022. Calcium 9.9 8.5 - 10.3 mg/dL [facility] CH Bilirubin, total 0.6 0.1 - 1.2 mg/dL [facility] CH Protein, pl 7.5 6.5 - 8.5 g/dL [facility] CH Albumin 4.3 3.5 - 5.0 g/dL [facility] CH Alk phos 86 40 - 130 Units/L [facility] CH ALT 12 7 - 45 Units/L [facility] CH AST 22 10 - 45 Units/L [facility] CH Blood 01/04/2025 10:2 6 AM CDT 01/04/2025 3:19 PM CDT Gerald De La Cruz MD LAB BLOOD ORDERABLES Final Result Performing Organization Address [facility] de Phone Number [facility] [id number] [place] [address] * Hepatitis C antibody (03/15/2022 11:07 AM CDT) Hep C Ab Nonreactive Nonreactive [facility] Comment: Interpretive Data Nonreactive: Antibodies to HCV not detected. Does NOT exclude the possibility of recent exposure to HCV. Equivocal: Equivocal for HCV antibodies. Supplemental molecular testing will be automatically performed to determine infection status in accordance with current CDC screening recommendations. Reactive: Positive for HCV antibodies. This may represent current or past HCV infection. Supplemental molecular testing will be automatically performed to determine current infection status in accordance with current CDC screening recommendations. Interpretive data was last revised on 2020. Blood 03/15/2022 11:0 7 AM CDT 03/15/2022 3:45 PM CDT Gerald De La Cruz MD LAB MICROBIOLOGY - GENERAL ORDERABLES Final Result Performing Organization Address [facility]/State/ZIP Co de Phone Number ALHAJI LLOYD [address] Department [place] [address] * Colonoscopy (01/11/2021) Anatomical Region Laterality Modality Other Narrative 01/11/2021 Normal. Repeat in 10 years us Historical Provider MD ENDOSCOPY PROCEDURES Ines l Result from Last 3 Months or Most Recently Relevant to Health Maintenance Insurance [employer] [facility] MEDICARE [facility] MED[facility] Address: [address] [address] [place] [address] [facility] MDCR HMO REF [facility] MEDIC[facility] Address: [address] [address] [place] [address] FOR LIFE [facility] MEDICARE [facility] MED[facility] Address: [address] [address] [place] [address] Care Teams 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
--- OUTSIDE RECORDS SUMMARY | 2025-02-11 09:44 | XMS_ITS | Clinical Summary ---
Author Organization [facility] Address [address] [place] [address] Care Team Providers Care School Office Assistant Name Role Phone Gerald De La Cruz MD Primary Care Provider [phone] Source Comments [facility],non-owned Affiliates and Associated Physician Practices is amultiple site organization consisting of ambulatory clinics and hospital sitesin [place] and [place]. This disclosure is being madepursuant to the Care Everywhere program and may not contain all information available regarding this patient. Last updated 18.[facility] Allergies No known active allergies Medications * This document contains information received from the source organization and may not represent a complete record from that organization. * Be aware that medications may not be up to date on this document. Alwaysverify current medications with the patient. CARVEDILOL POIndications:H ypertension Take 25 mg by mouth 2 times daily Take with food Active HYDROCHLOROTHIA ZIDE POIndications:H ypertension Take 25 mg by mouth once daily Active traZODone (DESYREL) 100 MG tabletIndicatio ns:Insomnia Take 150 mg by mouth nightly as needed for Insomnia Take 1 to 2 tabs for sleep Reasons: Trouble Sleeping Active omeprazole (PRILOSEC) 40 MG capsuleIndicati ons:Gastroesoph ageal Reflux Disease Take 40 mg by mouth daily before breakfast Active losartan (COZAAR) 100 MG tabletIndicatio ns:Hypertension Take 100 mg by mouth once daily Active loratadine (CLARITIN) 10 MG tabletIndicatio ns:Seasonal Allergic Rhinitis Take 10 mg by mouth once daily Active Magnesium 500 MGIndications:H ypomagnesemia Take 500 mg by mouth once daily Take one tablet with a meal daily Reasons: Disorder with Low Magnesium Levels Active Multiple Vitamins-Minera ls (MULTIVITAMIN ADULTS 50+ PO)Indications: Vitamin and/or Mineral Deficiency Take 1 tablet by mouth once daily Take with food Reasons: Vitamin and/or Mineral Deficiency Active cyanocobalamin (VITAMIN B-12) 1000 MCG tabletIndicatio ns:Vitamin B12 Deficiency Take 1,000 mcg by mouth once daily Take with a meal Reasons: Inadequate Vitamin B12 Active amLODIPine (NORVASC) 5 MG tabletIndicatio ns:Hypertension Take 5 mg by mouth once daily Reasons: High Blood Pressure Disorder Active vitamin D3 (D-3-5) 125 MCG (5000 UT) capsuleIndicati ons:Vitamin D Deficiency Take 5,000 Units by mouth once daily Active busPIRone (BUSPAR) 10 MG tabletIndicatio ns:Anxiety Disorder Take 1 (one) tablet by mouth 3 times daily Reasons: Anxiety Disorder 90 tablet 1 1 Active venlafaxine XR 24hr (EFFEXOR XR) 150 MG capsuleIndicati ons:Major Depressive Disorder Take 1 (one) capsule by mouth daily with dinner Reasons: Major Depressive Disorder 30 capsule 1 1 Active fluticasone propionate (FLONASE) 50 MCG/ACT nasal spray [place] 1 spray into each nostril as directed 0 Active lidocaine (LIDODERM) 5 % patch Apply 1 patch to skin as directed 2 Active methocarbamol (ROBAXIN) 750 MG tablet Take 1 tablet by mouth once daily 2 Active naltrexone (REVIA) 50 MG tablet Take 0.5 tablets by mouth 2 times daily 2 Active omeprazole (PRILOSEC) 40 MG capsule Take 1 capsule by mouth once daily Active hyoscyamine SL (LEVSIN SL) 0.125 MG tablet Dissolve 1 tablet under the tongue once daily Active amLODIPine (NORVASC) 5 MG tablet Take 1 tablet by mouth once daily 0 Active Potassium Gluconate 2.5 MEQ Take 1 tablet by mouth once daily Active Active Problems Problem Noted Date Diagnosed Date Depressive disorder 10/04/2021 Astigmatism 10/08/2020 Myopia 10/08/2020 Combined forms of age-related cataract 0 Presbyopia 10/08/2020 Medicare annual wellness visit, subsequent 09/04 Overview (10/08/2020): Last Assessment & Plan: Mammogram order provided Last Assessment & Plan: Encouraged healthy lifestyle, good nutrition and exercise. Encouraged Calcium and Vitamin D and weight bearing exercise for bone health. Reviewed immunizations Reviewed age appropirate screenings. Documenation on the chart Left foot pain 04/11/2019 Overview (10/08/2020): Last Assessment & Plan: Foot pain ??? Neuroma. Send to Executive Kitchen Manager for further evaluation. RUQ abdominal pain 04/11/2019 Overview (10/08/2020): Last Assessment & Plan: This is a significant, separately identifiable problem that was evaluated and managed on the same day as the wellness exam Completely negative workup in ER> Encouraged colace for her harder bulky stools. Increase fluids. Monitor closely BMI 34.0-34.9,adult 04/09/2019 Overview (10/08/2020): Last Assessment & Plan: Obesity is unchanged. Discussed the patient's BMI. The BMI is above average. BMI management plan is completed. BMI Follow-up includes: nutrition counseling, exercise counseling and education provided. Obesity (BMI 30-39.9) 04/09/2019 Overview (10/08/2020): Last Assessment & Plan: Obesity is unchanged. Discussed the patient's BMI. The BMI is above average. BMI management plan is completed. BMI Follow-up includes: nutrition counseling, exercise counseling and education provided. Mixed hyperlipidemia 04/09/2019 Overview (10/08/2020): Last Assessment & Plan: Encouraged patient to continue low fat/low chol diet. Continue exercise. Increase good fats in the diet. Monitor labs as needed. D Pre-diabetes 04/09/2019 Overview (10/08/2020): Last Assessment & Plan: This is a significant, separately identifiable problem that was evaluated and managed on the same day as the wellness exam Pre-diabetes is a precursor to Dm. Stressed importance of working on diet (decrease your simple sugars and one carbohydrate with each meal) and increase you exercise to achieve weight loss and this will help prevent you from progressing to diabetes. Asthma 03/13/2014 Overview (10/08/2020): Asthma Last Assessment & Plan: Atopic rhinitis 03/13/2014 Overview (10/08/2020): Allergic rhinitis Hypertension 03/13/2014 Overview (10/08/2020): HTN (hypertension) Last Assessment & Plan: Bp is stable/in acceptable range for any co-morbidities. Encouraged to limit sodium intake and exercise for weight control. Mixed anxiety depressive disorder 03/13/2014 Overview (10/08/2020): Depression with anxiety Last Assessment & Plan: This is a significant, separately identifiable problem [...] of pyschiatrists and counselors in the area. Immunizations Immunization Administration Dates Next Due INFLUENZA VACCINE, TRIV. (AF LURIA, FLUZONE TRIVALENT; 6MO+) (IIV3) 08/15/2016 Covid Moderna primary monova lent 12+ yr 0.5mL 02/21/2021,01/24/2021 FLU VACCINE QUAD IIV4 SPLIT 0.25 ML IM 07/27/2020 INFLUENZA VACCINE 07/19/2021,06/29/2021,07/30/20 18 INFLUENZA VACCINE, QUADR. (F LUZONE; FLULAVAL; FLUARIX; AFLURIA QUADRIVALENT; 6MO+), 0.5 ML (IIV4) 08/15/2020,09/04/2019,07/29/2018,2015 TDAP (7yrs+) 05/09/2015 Td (Adult), 2 Lf Tetanus Tox oid, Adsorbed, Pf 10/28/2005 Social History Tobacco Use Types Packs/Day Years Used Date Smoking Tobacco: Never Smokeless Tobacco: Never Tobacco Cessation:Counseling Given: Yes Alcohol Use Standard Drinks/Week Comments Never 0 (1 standard drink = 0.6 oz pur e alcohol) AUDIT-C Answer Date Recorded Q1: How often do you have a drink containing alc ohol? Never 10/05/2021 Q2: How many drinks containi ng alcohol do you have on a typical day when you are drinking? 1 or 2 10/05/2021 Q3: How often do you have six or more drinks on one occasion? Never 10/05/2021 Comments No Sex and Gender Information Value Date Recorded Sex Assigned at Not on file Legal Sex Female 12:55 PM CDT Gender Identity Not on file Sexual Orientation Not on file Last Filed Vital Signs Vital Sign Reading Time Taken Comments Blood Pressure 125/78 03/01/2022 8:17 AM CDT Pulse 83 03/01/2022 8:17 AM CDT Temperature 36.8 C (98.3 F) 10/08/2021 7:07 AM REAL ESTATE FIRM MANAGER Respiratory Rate 16 03/01/2022 8:17 AM CDT Oxygen Saturation 96% 10/08/2021 7:07 AM REAL ESTATE FIRM MANAGER Inhaled Oxygen Concentration - - Weight 89.8 kg (198 lb) 03/01/2022 8:17 AM CDT Height 165.1 cm (5' 5 ) 03/01/2022 8:17 AM CDT Body Mass Index 32.95 03/01/2022 8:17 AM CDT Plan of Treatment Health Maintenance Due Date Last Done Comments BONE DENSITY TESTING 1955 COLOGUARD (AGES 45-75) - COLON CA SCREENING 1956 COLON MONITORING 1956 COLONOSCOPY - COLON CA SCREENING 1956 CT COLONOGRAPHY - COLON CA SCREENING 1955 Colorectal Cancer Screening 1956 FIT - COLON CA SCREENING 1956 FLEX SIG - COLON CA SCREENING 1956 MAMMOGRAM 1956 HEPATITIS C SCREENING 08/04/1974 PNEUMOCOCCAL VACCINE 50+ (1 of 2 - PCV) 1975 ZOSTER VACCINE (1 of 2) 2006 Respiratory Syncytial Virus (RSV) Vaccine Pt: or over 60 yrs (1 - Risk 60-74 years 1-dose series) 2016 COVID-19 VACCINE (3 - season) 2024 02/21/2021, 01/24/2021 SCREENING FOR DIABETES 10/06/2024 , 10/05/2021, 10/05/2021, Additional history exists DEPRESSION SCREENING 10/28/2024 MEDICARE AWV CALENDAR YEAR 2024 DTAP/TDAP/TD VACCINES (2 - Td or Tdap) 05/09/2025 05/09/2015, 10/28/2005 INFLUENZA VACCINE (Season Ended) 2025 07/19/2021, 06/29/2021, 08/15/2020, Additional history exists LIPID TESTING 10/05/2026 10/05/2021 HEPATITIS B VACCINE Aged Out No longe r eligible based on patient's age to complete this topic HIB VACCINE Aged Out No longer eligi ble based on patient's age to complete this topic HPV VACCINE Aged Out No longer eligi ble based on patient's age to complete this topic MENINGOCOCCAL (Group B) VACCINE SHARED DECISION-MAKING Aged Out No longer eligible based on patient's age to complete this topic MENINGOCOCCAL GROUPS A/C/Y/W VACCINE Aged Out No longer eligible based on patient's age to complete this topic Procedures Procedure Name Priority Date/Time Associated Diagnosis Comments COMPREHENSIVE METABOLIC PANEL AM Draw 10/06/2021 5:41 AM REAL ESTATE FIRM MANAGER LIPID PROFILE AM Draw 10/05/2021 5:02 AM REAL ESTATE FIRM MANAGER from Last 3 Months or Most Recently Relevant to Health Maintenance Results * (ABNORMAL) COMPREHENSIVE METABOLIC PANEL (10/06/2021 5:41 AM REAL ESTATE FIRM MANAGER) [facility] Glucose 100 70 - 105 mg/dL 10/06/2021 6:28 AM REAL ESTATE FIRM MANAGER [facility] Sodium 131(L) 136 - 145 mmol/L 10/06/2021 6:28 AM REAL ESTATE FIRM MANAGER [facility] Potassium 3.8 3.5 - 5.1 mmol/L 10/06/2021 6:28 AM [facility] Chloride 97(L) 98 - 107 mmol/L 10/06/2021 6:28 AM [facility] CO2 24 23 - 31 mmol/L 10/06/2021 6:28 AM [facility] Calcium 9.7 8.4 - 10.4 mg/dL 10/06/2021 6:28 AM [facility] Anion Gap 10 8 - 18 mmol/L 10/06/2021 6:28 AM [facility] BUN 15 9.8 - 20.1 mg/dL 10/06/2021 6:28 AM [facility] Creatinine 0.86 0.57 - 1.11 mg/dL 10/06/2021 6:28 AM [facility] Alkaline Phosphatase 74 40 - 150 U/L 10/06/2021 6:28 AM [facility] ALT 9 0 - 61 U/L 10/06/2021 6:28 AM [facility] AST 16 5 - 34 U/L 10/06/2021 6:28 AM [facility] Protein Total 6.8 6.4 - 8.3 gm/dL 10/06/2021 6:28 AM [facility] Albumin 3.8 3.2 - 4.6 gm/dL 10/06/2021 6:28 AM [facility] Bilirubin Total 0.6 0.2 - 1.2 mg/dL 10/06/2021 6:28 AM [facility] eGFR by MDRD >60 >60 mL/min/1.7 3m2 10/06/2021 6:28 AM [facility] eGFR by MDRD >60 >60 mL/min/1.7 3m2 10/06/2021 6:28 AM [facility] Blood BLOOD SPECIMEN / Unknown Lab Venipuncture / Unknown 10/06/2021 5:41 AM REAL ESTATE FIRM MANAGER 10/06/2021 5:55 AM [facility] Dana Álvarez MD LAB - CHEMISTRY ORDERABLES Final Result [facility] [address] [place] [address] * LIPID PROFILE (10/05/2021 5:02 AM REAL ESTATE FIRM MANAGER) Cholesterol 185 <200 mg/dL 10/05/2021 6:20 AM REAL ESTATE FIRM MANAGER [facility] Triglycerides 99 <150 mg/dL 10/05/2021 6:20 AM REAL ESTATE FIRM MANAGER [facility] HDL Cholesterol 44 >40 mg/dL 6:20 AM REAL ESTATE FIRM MANAGER [facility] LDL Calculated 121 <130 mg/dL 10/05/2021 6:20 AM REAL ESTATE FIRM MANAGER [facility] VLDL Calculated 20 <=30 mg/dL 6:20 AM REAL ESTATE FIRM MANAGER [facility] Chol HDL Ratio 4.2 <4.5 10/05/2021 6:20 AM REAL ESTATE FIRM MANAGER [facility] LDL/HDL Ratio 2.8 <5.0 10/05/2021 6:20 AM [facility] Blood BLOOD SPECIMEN / Unknown Lab Venipuncture / Unknown 10/05/2021 5:02 AM REAL ESTATE FIRM MANAGER 10/05/2021 5:34 AM [facility] Cydney Ha FIRE TENDER-MANUFACTURERS SERVICE REPRESENTATIVE LAB - CHEMISTRY ORDERABL ES Final Result [facility] [address] [id number] from Last 3 Months or Most Recently Relevant to Health Maintenance Insurance MEDICARE [employer] MANAGED MEDICARE ADV MANAGED MEDICARE ADV [facility] MANAGED MEDICARE ADV Advance Directives * Full Code (Latest Code Status on File) Date Activated Date Inactivated Comments 10/04/2021 11:43 PM 10/08/2021 12:45 PM Care Teams School Office Assistant Relationship Specialty Start Date End Date Gerald De La Cruz MD [address] [place] [id number] PCP - General 02/26/22
--- OUTSIDE RECORDS SUMMARY | 2025-02-11 09:44 | XMS_ITS | Encounter Summary ---
Author Name [facility] Address [address] [place] [address] Care Team Providers Care Buyer Assistant Name Role Phone WALDEMAR PRUITT Primary Care [...] [facility] (WNR) MEDICARE ADVANTAGE MCR ([facility]) Oct 28, 2023 [id number] [phone] MARINO BOOTH PATIENT -FO R-LIFE [facility] RE FOR LIFE [facility] Jul 28, 2021 FOR LIFE [id number] [phone] MARINO BOOTH PATIENT -FO R-LIFE [place]ICA RE FOR LIFE [facility] Jul 28, 2021 FOR LIFE [id number] [phone] KIM BOOTH HARD SPOUSE [facility] ([facility]) MEDICARE ADVANTAGE MCR ([facility]) Jul 28, 2021 [id number] MARINO BOOTH PATIENT Selected Encounter This section includes the information on record at [place] for the Encounter. Date/Time Encounter Type Encounter Description Reason Pro vider Source Apr 28, 2024 01:00 PM Outpatient Encounter ADMIN PAT ACTIVTIES (MASNONCT) IHE Encounter Template Text not used by [facility] Plan of Treatment: Future Appointments (+ 6 months) and Future Tests (+/- 45 days) The Plan of Treatment section includes future care activities for the patient from all [place] treatmentfacilities. This section includes future appointments and future orders which are active, pending or scheduled. Future Appointments This section includes appointments that were scheduled to occur 6 months from the date of the Encounter, up to a maximum of 20 appointments. The data comes from all [place] treatment facilities. Appointment Date/Time Appointment Type Appointme nt Facility Name May 07, 2024 02:30 PM [facility] NONE [facility] May 14, 2024 02:30 PM [facility]ORY - NONE [facility] May 21, 2024 11:30 AM [facility]ULATORY [facility] N[facility] May 21, 2024 11:30 AM [facility]ORY - NONE [facility] May 21, 2024 02:30 PM [facility]ORY - NONE [facility] May 28, 2024 01:30 PM AMBULATORY - PSYCHIATRY [facility] May 28, 2024 02:30 PM AMBULATORY - NONE [facility] Jun 04, 2024 02:30 PM AMB[facility]ATORY - NONE [facility] Jun 08, 2024 12:30 PM [facility]ULATORY [facility] N[facility] Jun 08, 2024 12:30 PM [facility]ORY - NONE [facility] Jun 11, 2024 02:30 PM [facility] - NONE [facility] Jun 22, 2024 12:30 PM [facility] Jun 22, 2024 12:30 PM [facility]ATORY - NONE [facility] Jul 09, 2024 11:30 AM AM[facility]ULATORY - NONE [facility] Jul 09, 2024 11:30 AM [facility]ATORY - NONE [facility] Jul 21, 2024 10:30 AM AM[facility]ULATORY [facility] NONE [facility] Jul 21, 2024 10:30 AM [facility]ATORY - NONE [facility] Aug 06, 2024 10:00 AM AM[facility]ULATORY [facility] NONE [facility] Aug 13, 2024 11:30 AM [facility]ORY - NONE [facility] Aug 27, 2024 10:30 AM AMBULATORY - NONE [facility] Encounter Notes: All associated encounter notes This section contains the clinical notes associated to the Encounter. Date/Time Encounter Note(s) Provider Source Apr 28, 2024 11:57 AM CAREGIVER CERTIFIC ATE: LOCAL TITLE: [facility] ADMINISTRATIVE NOTE STANDARD TITLE: CAREGIVER CERTIFICATE DATE OF NOTE: APR 28, 2024@11:57 ENTRY DATE: APR 28, 2024@11:57:28 AUTHOR: MYA NUNEZ COSIGNER: URGENCY: STATUS: COMPLETED VISN [facility] [employer] - FOLLOW UP [facility] PSYCHOLOGY VISIT Two patient identifiers were utilized in order to ensure accuracy of patient identification. Encounter was conducted via Telehealth Modality. Verbal informed consent was obtained from the Caregiver at the time of the encounter. TYPE OF ENCOUNTER: [facility]VC VISIT Psychotherapy LENGTH OF ENCOUNTER: 60 Minutes EVIDENCED BASED TREATMENT UTILIZED: Cognitive Behavioral Psychotherapy SUBJECTIVE PRESENTING COMPLAINT: CG indicated that she has become highly motivated to make some changes. 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 She reported already changing some account passwords. She indicated that she also plans on setting a boundary that her daughter that borrowed one of her cars has to start making the vehicle payment or paying for the insurance payment. She indicated that the is engaging in strange repetitive behaviors and at times wondering if his behaviors are intentional. She reported communicating with his PC and psychiatry at times regarding medication concerns. SUICIDALITY/HOMICIDALITY: [X ] asymptomatic [ ] current passive ideation [ ] current active ideation [ ] current plan [ ] meets criteria for involuntary admission RISK FACTORS: [ ] ETOH or Other Drug Abuse [ ] Hopelessness [ ] Impulsivity [ ] Mood Exacerbation PROTECTIVE FACTORS: [X ] Evidence of accessible and positively motivated social supports [X ] Therapeutic alliance with a mental health professional [ ] Children dependent on the patient for primary care [ X] Future-oriented plans and commitments [X ] Personal, Cultural, or Jain Beliefs for Self Preservation ASSESSMENT OF SUICIDE RISK:low ASSESSMENT OF HOMICIDE RISK:low Current psychiatric medications: Active Outpatient Medications (including Supplies): Active Outpatient Medications Status 1) BUPROPION HCL 150MG 24HR SA TAB TAKE ONE TABLET BY ACTIVE MOUTH EVERY MORNING FOR MOOD 2) LIDOCAINE 5% PATCH APPLY 1 PATCH TO SKIN SITE ONCE A ACTIVE DAY APPLY PATCH AND PRESS FIRMLY FOR 10-15 SECONDS. KEEP ON FOR 12 HOURS THEN REMOVE PATCH FOR 12 HOURS. 3) MELATONIN 5MG CAP/TAB TAKE ONE CAP/TAB BY MOUTH AT ACTIVE BEDTIME FOR SLEEP 4) TRAZODONE HCL 100MG TAB TAKE TWO TABLETS BY MOUTH AT ACTIVE BEDTIME 5) VENLAFAXINE HCL 150MG 24HR SA CAP TAKE ONE CAPSULE BY ACTIVE MOUTH ONCE A DAY FOR MOOD/ANXIETY WITH FOOD. DO NOT ABRUPTLY DISCONTINUE MEDICATION. MENTAL STATUS EXAMINATION WITH SAFETY ASSESSMENT/PLANNING: -Orientation: person, place, time -Mood was anxious/irritated -Affect: congruent with stated mood and symptoms. -Psychomotor: was relatively calm and responsive. - Speech: normal rhythm and content. -Stream of Thought: maintained focus on topics and responded appropriately to questions. -Thought Content: no evidence of a formal thought disorder. -Insight and judgment: grossly intact. -Fund of information: adequate. No gross remote memory impairments noted. -Active suicidal ideation, planning, and intent was denied. Active homicidal ideation was denied. Protective factors were identified. IMPRESSION (DSM5 Criteria): MDD, recurrent, mild Anxiety [facility] with Cognitive and Emotional Impairment TREATMENT PLAN: [ ] Referral/Consultation: [ ] Watchful Waiting [X ] Psychotherapy Target goals:AR techniques were utilized to address the CG's openess for making changes and identifying concrete next steps. CG was encouraged to stay in contact with her 's psychiatrist and neurologist regarding conerns over behavioral changes. [ ] sleep [ ] anxiety [ ] anger management [ ] mood [X ] relationship strain / communication RTC placed for f/u care. /abimael/ MYA NUNEZ Signed: 04/28/2024 14:11 MYA NUNEZ [facility]
--- OUTSIDE RECORDS SUMMARY | 2025-02-11 09:44 | XMS_ITS | Encounter Summary ---
Author Name [place] Organization [place] Address [address] [place] [address] Care Team Providers Care Equipment Engineer Name Role Phone WALDEMAR PRUITT Primary Care [...] Baldwin [facility] (WNR) MEDICARE ADVANTAGE MCR ([facility]) Oct 28, 2023 [id number] [phone] MARINO BOOTH PATIENT -FO R-LIFE [facility] RE FOR LIFE [facility] Jul 28, 2021 FOR LIFE [id number] [phone] MARION BOOTH PATIENT -FO R-LIFE [facility] RE FOR LIFE [facility] Jul 28, 2021 FOR LIFE [id number] [phone] KIM BOOTH HARD SPOUSE [facility] ([facility]) MEDICARE ADVANTAGE MCR ([facility]) Jul 28, 2021 [id number] MARINO BOOTH PATIENT Selected Encounter This section includes the information on record at [place] for the Encounter. Date/Time Encounter Type Encounter Description Reason Pro vider Source Feb 13, 2024 02:00 PM Outpatient Encounter ADMIN PAT ACTIVTIES (MASNONCT) IHE Encounter Template Text not used by [place] Plan of Treatment: Future Appointments (+ 6 months) and Future Tests (+/- 45 days) The Plan of Treatment section includes future care activities for the patient from all [place] treatmentfacilities. This section includes future appointments and future orders which are active, pending or scheduled. Future Appointments This section includes appointments that were scheduled to occur 6 months from the date of the Encounter, up to a maximum of 20 appointments. The data comes from all [place] treatment facilities. Appointment Date/Time Appointment Type Appointme nt Facility Name Feb 20, 2024 01:30 PM [facility] Feb 20, 2024 01:30 PM [facility] February 26, 2024 04:00 PM AMBULATORY - [facility] March 10, 2024 11:00 AM AMBULATORY - MEDICINE [facility] March 12, 2024 12:30 PM AMBULATORY - NONE [facility] March 12, 2024 12:30 PM [facility] NONE [facility] March 26, 2024 12:30 PM AMBULATORY - NONE [facility] March 26, 2024 12:30 PM [facility] NONE [facility] Apr 09, 2024 12:30 PM [facility] Apr 09, 2024 12:30 PM [facility] Apr 23, 2024 02:30 PM [facility] NONE [facility] Apr 28, 2024 01:00 PM [facility] Apr 28, 2024 01:00 PM [facility] May 07, 2024 02:30 PM AM[facility]ULATORY - NONE [facility] May 14, 2024 02:30 PM AMBULATORY - NONE [facility] May 21, 2024 11:30 AM [facility] May 21, 2024 11:30 AM [facility] May 21, 2024 02:30 PM AM[facility]ULATORY - NONE [facility] May 28, 2024 01:30 PM AMBULATORY - PSYCHIATRY [facility] May 28, 2024 02:30 PM AMBULATORY - NONE [facility] Encounter Notes: All associated encounter notes This section contains the clinical notes associated to the Encounter. Date/Time Encounter Note(s) Provider Source Feb 13, 2024 07:27 AM CAREGIVER CERTIFIC ATE: LOCAL TITLE: [facility] INDIVIDUAL PSYCHOTHERAPY NOTE STANDARD TITLE: CAREGIVER CERTIFICATE DATE OF NOTE: FEB 13, 2024@07:27 ENTRY DATE: FEB 13, 2024@07:27:53 AUTHOR: MYA NUNEZ COSIGNER: URGENCY: STATUS: COMPLETED [facility] - FOLLOW UP [facility] PSYCHOLOGY VISIT Two patient identifiers were utilized in order to ensure accuracy of patient identification. Encounter was conducted via Telehealth Modality. Verbal informed consent was obtained from the Caregiver at the time of the encounter. TYPE OF ENCOUNTER: VVC VISIT Psychotherapy LENGTH OF ENCOUNTER: 55 Minutes EVIDENCED BASED TREATMENT UTILIZED: Cognitive Behavioral Psychotherapy SUBJECTIVE PRESENTING COMPLAINT:CG did not initially join so provider resent link and called CG. CG indicated that she had been confused about the appointment time, but agreed to join the appointment.Then the CG had significant difficulty connecting to the appointment via her smart phone and the reason was unclear. The CG indicated that she needed to restart her telephone and asked the provider to call back a third time. She indicated that her has refused to shower this week. She reported having gastritis and engaging in various treatments. She reported resting due to the issue. She reported the family staying is helping with chores, organizing, and getting rid of things no longer needed. She reported enjoying her coffee club and trying to make new friends. She reported throughout her life she has never really had friends. She reported connected with others through Facebook. She reported having a neighborhood tru and that she utilized it to start a coffee group that has been a success with many participants locally. The effects of depression on thought processes discussed and ways to build motivation explored. She reported wanting to improve her relationship with her daughters and her daughters want her to be more active and independent. SUICIDALITY/HOMICIDALITY: [X ] asymptomatic [ ] current [...] dependent on the patient for primary care [X ] Future-oriented plans and commitments [X ] Personal, Cultural, or Presybeterian Beliefs for Self Preservation ASSESSMENT OF SUICIDE RISK:low ASSESSMENT OF HOMICIDE RISK:low DS - Disabilities Eligibility: NSC VERIFIED Current psychiatric medications: Active Outpatient Medications (including Supplies): Active Outpatient Medications Status 1) BUPROPION HCL 150MG 24HR SA TAB TAKE ONE TABLET BY ACTIVE MOUTH EVERY MORNING FOR MOOD 2) MELATONIN 5MG CAP/TAB TAKE ONE CAP/TAB BY MOUTH AT ACTIVE BEDTIME FOR SLEEP 3) TRAZODONE HCL 100MG TAB TAKE ONE AND ONE-HALF TABLETS ACTIVE BY MOUTH AT BEDTIME FOR SLEEP 4) VENLAFAXINE HCL 150MG 24HR SA CAP TAKE ONE CAPSULE BY ACTIVE MOUTH ONCE A DAY FOR MOOD/ANXIETY WITH FOOD. DO NOT ABRUPTLY DISCONTINUE MEDICATION. MENTAL STATUS EXAMINATION WITH SAFETY ASSESSMENT/PLANNING: -Orientation: person, place, time -Mood was dysphoric -Affect: congruent with stated mood and symptoms. [...] IMPRESSION (DSM5 Criteria): MDD, recurrent, mild Anxiety Disorder Unspecified Spouse with Dxs of Dementia and hx Bipolar TREATMENT PLAN: [ ] Referral/Consultation: [ ] Watchful Waiting [X ] Psychotherapy Target goals:GA techniques utilized to address CG motivation for change. CG working on assertiveness, following through on goals, and increasing time spent in relaxing activities like walking and/or cafting, and socializing more. [ ] sleep [ ] anxiety [ ] anger management [ ] mood [ ] relationship strain / communication RTC placed for f/u care. /abimael/ MYA NUNEZ Signed: 03/04/2024 09:04 MYA NUNEZ [facility]
--- OUTSIDE RECORDS SUMMARY | 2025-02-11 09:44 | XMS_ITS | Encounter Summary ---
Author Name Department [place] Organization [place] Address [address] [place] [address] Care Team Providers Care Marketing Production Specialist Name Role Phone WALDEMAR PRUITT Primary Care [...] Baldwin [facility] (WNR) MEDICARE ADVANTAGE MCR ([facility]) Oct 28, 2023 [id number] [phone] MARINO BOOTH PATIENT -FO R-LIFE [facility] RE [facility] LIFE [facility] Jul 28, 2021 FOR LIFE [id number] [phone] MARINO BOOTH PATIENT -FO R-LIFE TRICA RE FOR LIFE [facility] Jul 28, 2021 FOR LIFE [id number] [phone] KIM BOOTH HARD SPOUSE [facility] ([facility]) MEDICARE ADVANTAGE MCR ([facility]) Jul 28, 2021 [id number] MARINO BOOTH PATIENT Selected Encounter This section includes the information on record at [place] for the Encounter. Date/Time Encounter Type Encounter Description Reason Pro vider Source Sep 15, 2024 10:00 AM Outpatient Encounter ADMIN PAT ACTIVTIES (MASNONCT) IHE Encounter Template Text not used by [place] Plan of Treatment: Future Appointments (+ 6 months) and Future Tests (+/- 45 days) The Plan of Treatment section includes future care activities for the patient from all [place] [facility]. This section includes future appointments and future orders which are active, pending or scheduled. Future Appointments This section includes appointments that were scheduled to occur 6 months from the date of the Encounter, up to a maximum of 20 appointments. The data comes from all [place] treatment facilities. Appointment Date/Time Appointment Type Appointme nt Facility Name Oct 08, 2024 11:00 AM AMBULATORY - NONE [facility] Oct 08, 2024 11:00 AM [facility]ORY [facility] N[place] [facility] Nov 05, 2024 12:00 PM AMBULATORY - NONE [facility] Nov 05, 2024 12:00 PM AMBULATORY - PSYCHIATRY [facility] [place] Nov 09, 2024 10:00 AM AMBULATORY - MEDICINE [facility] Nov 17, 2024 10:00 AM AM[facility]ATORY [facility] NONE [facility] Nov 17, 2024 10:00 AM AMBULATORY - PS[facility]IATRY [facility] [place] [facility] Nov 23, 2024 02:30 PM AMBULATORY - PSYCHIATRY [facility] Dec 07, 2024 01:00 PM AMBULATORY - NONE [facility] Dec 07, 2024 01:00 PM AMBULATORY - [facility]IATRY [facility] [place] [facility] Dec 22, 2024 01:00 PM AMBULATORY - NONE [facility] Dec 22, 2024 01:00 PM AMBULATORY - PS[facility]IATRY [facility] [place] [facility] Jan 07, 2025 10:00 AM AMBULATORY - NONE [facility] Jan 07, 2025 10:00 AM AMBULATORY - [facility]IATRY [facility] Jan 11, 2025 01:30 PM AMBULATORY - NONE [facility] Jan 11, 2025 01:30 PM AMBULATORY - PS[facility]IATRY [facility] [place] Jan 21, 2025 10:00 AM [facility] Jan 21, 2025 10:00 AM AMBULAT[facility] - PS[facility]CHIATRY [facility] [place] [facility] Jan 26, 2025 02:00 PM [facility] Jan 26, 2025 02:00 PM AMBULAT[facility] - PS[facility]CHIATRY [facility] Encounter Notes: All associated encounter notes This section contains the clinical notes associated to the Encounter. Date/Time Encounter Note(s) Provider Source Sep 15, 2024 08:47 AM CAREGIVER CERTIFIC ATE: LOCAL TITLE: [facility] ADMINISTRATIVE NOTE STANDARD TITLE: CAREGIVER CERTIFICATE DATE OF NOTE: SEP 15, 2024@08:47 ENTRY DATE: SEP 15, 2024@08:47:14 AUTHOR: MYA NUNEZ COSIGNER: URGENCY: STATUS: COMPLETED VISN [facility] PSYCHOLOG[facility] Two patient identifiers were utilized in order to ensure accuracy of patient identification. Encounter was conducted via Telehealth Modality. Verbal informed consent was obtained from the Caregiver at the time of the encounter. TYPE OF ENCOUNTER: VV VISIT Psychotherapy LENGTH OF ENCOUNTER: 50 Minutes EVIDENCED BASED TREATMENT UTILIZED: Cognitive Behavioral Psychotherapy SUBJECTIVE PRESENTING COMPLAINT:The CG reported that her daughters have been coming to the house more and next week family and friends are coming multiple days including Thanksgiving. She reported that her daughters are going to make Thanksgiving dinner at her house. She reported enjoying the increased social contact. She reported that she has psych meds, but [facility] she can see since [facility]. She also reported talking to medicare to see the care options in her community. She reported her garage door was fixed and she is pleased to get to park the car indooors. SUICIDALITY/HOMICIDALITY: [X ] asymptomatic [ ] current [...] and commitments [X ] Personal, Cultural, or Alevism Beliefs for Self Preservation ASSESSMENT OF SUICIDE [...] person, place, time -Mood was anxious -Affect: congruent with stated mood and symptoms. [...] Criteria): MDD, recurrent, mild Anxiety Disorder Unspecified Caregiving-Spouse with Dxs of Dementia and hx Bipolar TREATMENT PLAN: [ ] Referral/Consultation: [ ] Watchful Waiting [ ] Psychotherapy Target goals: [ ] sleep [ ] anxiety [ ] anger management [X ] mood [X ] relationship strain / communication RTC placed for f/u care. /abimael/ MYA NUNEZ Signed: 09/15/2024 10:[address] [facility]
--- OUTSIDE RECORDS SUMMARY | 2025-02-11 09:44 | XMS_ITS | Encounter Summary ---
Author Name Department of Vetera Affairs ([place]) Organization [place] Address [address] [place] [address] Care Team Providers Care Tilt Tray Driver Name Role Phone WALDEMAR PRUITT Primary Care [...] [facility] ([facility]NR) MEDICARE ADVANTAGE MCR ([facility]) Oct 28, 2023 [id number] [phone] MARINO BOOTH PATIENT -FO R-LIFE TRICA RE FOR LIFE [facility] Jul 28, 2021 FOR LIFE [id number] [phone] MARINO BOOTH PATIENT -FO R-LIFE TRICA RE FOR LIFE [facility] Jul 28, 2021 FOR LIFE [id number] [phone] KIM BOOTH HARD SPOUSE [facility] ([facility]) MEDICARE ADVANTAGE MCR ([facility]) Jul 28, 2021 [id number] MARINO BOOTH PATIENT Selected Encounter This section includes the information on record at [place] for the Encounter. Date/Time Encounter Type Encounter Description Reason Pro vider Source Jul 09, 2024 11:30 AM Outpatient Encounter ADMIN PAT ACTIVTIES (MASNONCT) IHE Encounter Template Text not used by [place] Plan of Treatment: Future Appointments (+ 6 months) and Future Tests (+/- 45 days) The Plan of Treatment section includes future care activities for the patient from all [place] treatmentfacilities. This section includes future appointments and future orders which are active, pending or scheduled. Future Appointments This section includes appointments that were scheduled to occur 6 months from the date of the Encounter, up to a maximum of 20 appointments. The data comes from all [place] treatment facilities. Appointment Date/Time Appointment Type Appointme nt Facility Name Jul 21, 2024 10:30 AM AMBULATORY - NONE [facility] Jul 21, 2024 10:30 AM AMBULATORY - NONE [facility] Aug 06, 2024 10:00 AM AMBULATORY - NONE [facility] Aug 13, 2024 11:30 AM AMBULATORY - NONE [facility] Aug 27, 2024 10:30 AM AMBULATORY - NONE [facility] Aug 27, 2024 10:30 AM AMBULATORY - NONE [facility] Sep 15, 2024 10:00 AM AMBULATORY - NONE [facility] Sep 15, 2024 10:00 AM AMBULATORY - NONE [facility] Oct 08, 2024 11:00 AM AMBULATORY - NONE [facility] Oct 08, 2024 11:00 AM AMBULATORY - NONE [facility] Nov 05, 2024 12:00 PM AMBULATORY - NONE [facility] Nov 05, 2024 12:00 PM [facility] Nov 09, 2024 10:00 AM AMBULATORY - MEDICINE [facility] Nov 17, 2024 10:00 AM AMBULATORY - NONE [facility] Nov 17, 2024 10:00 AM [facility] - [facility] [facility] Nov 23, 2024 02:30 PM AMBULATORY - PSYCHIATRY [facility] Dec 07, 2024 01:00 PM AMBULATORY - NONE [facility] Dec 07, 2024 01:00 PM AMBULATORY - PSYCHIATRY [facility] [place] [facility] Dec 22, 2024 01:00 PM AMBULATORY - NONE [facility] Dec 22, 2024 01:00 PM AMBULATORY - PSYCHIATRY [facility] [place] Encounter Notes: All associated encounter notes This section contains the clinical notes associated to the Encounter. Date/Time Encounter Note(s) Provider Source Jul 09, 2024 03:54 PM CAREGIVER CERTIFIC ATE: LOCAL TITLE: [facility] ADMINISTRATIVE NOTE STANDARD TITLE: CAREGIVER CERTIFICATE DATE OF NOTE: JUL 09, 2024@15:54 ENTRY DATE: JUL 09, 2024@15:54:44 AUTHOR: MYA NUNEZ COSIGNER: URGENCY: STATUS: COMPLETED VIS[facility] 15 [facility] - FOLLOW UP [facility] PSYCHOLOGY VISIT Two patient identifiers were utilized in order to ensure accuracy of patient identification. Encounter was conducted via Telehealth Modality. Verbal informed consent was obtained from the Caregiver at the time of the encounter. TYPE OF ENCOUNTER: VVC VISIT Psychotherapy LENGTH OF ENCOUNTER: 52 Minutes EVIDENCED BASED TREATMENT UTILIZED: Cognitive Behavioral Psychotherapy SUBJECTIVE PRESENTING COMPLAINT:CG indicated that she was able to communicate with the 's PC and psychiatrists and that his meds were adjusted to address dementia and agitation symptoms. She reported feeling excited about that accomplishment. She reported that her daughter is also researching technology to monitor the 's whereabouts and the CG indicated that she will contact [facility] staff to see if she can get a medical bracelet for the identifying his dementia in case he wanders from the home. She reported with her friend group she is also connecting with others caregiving for individuals with dementia. She reported worrying about the progression of her husbands illness as well as her adult children's illnesses. She reported her sessions with the undersigned are very helful. She also reported that she is [facility] for herself. SUICIDALITY/HOMICIDALITY: [ X] asymptomatic [ ] current passive ideation [ [...] and commitments [X ] Personal, Cultural, or Amish Beliefs for Self Preservation ASSESSMENT OF SUICIDE [...] congruent with stated mood and symptoms. -Psychomotor: fidgety - Speech: normal rhythm and content. -Stream [...] ] Watchful Waiting [X ] Psychotherapy Target goals:Reinforce CG's assertiveness in communicating with resources and advocating for she and her 's care needs. Explore ways for to connect with others and reinforce her accomplishments and hard work in ensuring 's safety. [ ] sleep [ ] anxiety [ ] anger management [ ] mood [ ] relationship strain / communication RTC placed for f/u care in [facility]. /abimael/ MYA NUNEZ Signed: 07/09/2024 16:01 MYA NUNEZ [facility]
--- OUTSIDE RECORDS SUMMARY | 2025-02-11 09:44 | XMS_ITS | Encounter Summary ---
Author Name [place] Organization [place] Address [address] [place] [address] Care Team Providers Care Supervisor Wet End Name Role Phone WALDEMAR PRUITT Primary Care [...] Baldwin [facility] (WNR) MEDICARE ADVANTAGE MCR ([facility]) Oct 28, 2023 [id number] [phone] MARINO BOOTH PATIENT -FO R-LIFE [facility] RE FOR LIFE [facility] Jul 28, 2021 FOR LIFE [id number] [phone] MARINO BOOTH PATIENT -FO R-LIFE [facility] RE [facility] LIFE [facility] Jul 28, 2021 FOR LIFE [id number] [phone] KIM BOOTH HARD SPOUSE [facility] ([facility]) MEDICARE ADVANTAGE MCR ([facility]) Jul 28, 2021 [id number] MARINO BOOTH PATIENT Selected Encounter This section includes the information on record at [place] for the Encounter. Date/Time Encounter Type Encounter Description Reason Provider Source Jan 07, 2025 10:00 AM PSYTX W PT 45 MINUTES CAREGIVER SUPPORT PROGRAM ICD-10-CM F34.1 Dysthymic disorder RICHARD GRIDER [facility] Encounter Template Text not used by [place] Assessments - Encounter Diagnoses This section includes the primary and secondary diagnoses documented for the Encounter. Date/Time Primary/Secondary Diagnosis Diagnosis Name Provider Source Jan 07, 2025 02:36 PM PRIMARY Dysthymic disorder RICHARD GRIDER [facility] [place] [facility] Jan 07, 2025 02:36 PM SECONDARY Dependent relative needing care at home RICHARD GRIDER [facility] Jan 07, 2025 02:36 PM SECONDARY Major depressive disorder, recurrent, moderate RICHARD GRIDER [facility] Plan of Treatment: Future Appointments (+ 6 months) and Future Tests (+/- 45 days) The Plan of Treatment section includes future care activities for the patient from all [place] treatmentfacilities. This section includes future appointments and future orders which are active, pending or scheduled. Future Appointments This section includes appointments that were scheduled to occur 6 months from the date of the Encounter, up to a maximum of 20 appointments. The data comes from all [place] treatment facilities. Appointment Date/Time Appointment Type Appointme nt Facility Name Jan 11, 2025 01:30 PM AMBULATORY - NONE [facility] Jan 11, 2025 01:30 PM AMBULATORY - PS[facility]CHIATRY [facility] [place] [facility] Jan 21, 2025 10:00 AM AMBULATORY - NONE [facility] Jan 21, 2025 10:00 AM AMBULATORY - [facility]CHIATRY [facility] [place] [facility] Jan 26, 2025 02:00 PM AMBULATORY - NONE [facility] Jan 26, 2025 02:00 PM AMBULATORY - [facility]CHIATRY [facility] [place] [facility] Feb 16, 2025 10:00 AM AMBULATORY - PSYCHIATRY [facility] [place] [facility] Feb 16, 2025 10:00 AM AMBULATORY - NONE [facility] March 23, 2025 12:30 PM AMBULATORY - PSYCHIATRY [facility] Encounter Notes: All associated encounter notes This section contains the clinical notes associated to the Encounter. Date/Time Encounter Note(s) Provider Source Jan 07, 2025 12:58 PM CAREGIVER CERTIFIC ATE: LOCAL TITLE: [facility] INDIVIDUAL PSYCHOTHERAPY NOTE STANDARD TITLE: CAREGIVER CERTIFICATE DATE OF NOTE: JAN 07, 2025@12:58 ENTRY DATE: JAN 07, 2025@12:58:22 AUTHOR: RICHARD GRIDER EXP COSIGNER: URGENCY: STATUS: COMPLETED The telehealth encounter was conducted with the caregiver in [facility] [address] [place] [address] system today. Please see [employer] View[employer] for progress note, clinical reminders, and patient orders. - Telehealth Help Desk or [phone] /es/ RICHARD GRIDER PSYCHOLOGIST Signed: 01/07/2025 14:37 RICHARD GRIDER [facility]
--- OUTSIDE RECORDS SUMMARY | 2025-02-11 09:44 | XMS_ITS | Encounter Summary ---
Author Name [facility] [place] Organization [place] Address [address] [place] [address] Care Team Providers Care Television Presenter Name Role Phone WALDEMAR PRUITT Primary Care [...] Baldwin [facility] (WNR) MEDICARE ADVANTAGE MCR ([facility]) Oct 28, 2023 [id number] [phone] MARINO BOOTH PATIENT -FO R-LIFE [facility] RE FOR LIFE [facility] Jul 28, 2021 FOR LIFE [id number] [phone] MARINO BOOTH PATIENT -FO R-LIFE [facility] RE FOR LIFE [facility] Jul 28, 2021 FOR LIFE [id number] [phone] KIM BOOTH HARD SPOUSE [facility] ([facility]) MEDICARE ADVANTAGE MCR ([facility]) Jul 28, 2021 [id number] MARINO BOOTH PATIENT Selected Encounter This section includes the information on record at [place] for the Encounter. Date/Time Encounter Type Encounter Description Reason Pro vider Source Jan 26, 2025 02:00 PM Outpatient Encounter ADMIN PAT ACTIVTIES (MASNONCT) IHE Encounter Template Text not used by [place] Plan of Treatment: Future Appointments (+ 6 months) and Future Tests (+/- 45 days) The Plan of Treatment section includes future care activities for the patient from all [place] treatmentfacilities. This section includes future appointments and future orders which are active, pending or scheduled. Future Appointments This section includes appointments that were scheduled to occur 6 months from the date of the Encounter, up to a maximum of 20 appointments. The data comes from all [place] treatment facilities. Appointment Date/Time Appointment Type Appointme nt Facility Name Feb 16, 2025 10:00 AM AMBULATORY - [facility]IATRY [facility] Feb 16, 2025 10:00 AM AMBULATORY - NONE [facility] March 23, 2025 12:30 PM AMBULATORY - [facility]ATRY [facility] Encounter Notes: All associated encounter notes This section contains the clinical notes associated to the Encounter. Date/Time Encounter Note(s) Provider Source Jan 26, 2025 09:30 AM CAREGIVER CERTIFIC ATE: LOCAL TITLE: [facility] INDIVIDUAL PSYCHOTHERAPY NOTE STANDARD TITLE: CAREGIVER CERTIFICATE DATE OF NOTE: JAN 26, 2025@09:30 ENTRY DATE: JAN 26, 2025@09:32:26 AUTHOR: RICHARD GRIDER COSIGNER: URGENCY: STATUS: COMPLETED VIS 15 CLINICAL RESOURCE [facility] - FOLLOW UP PSYCHOLOGY VISIT VIRTUAL PSYCHOTHERAPY PROGRAM FOR CAREGIVERS (VP) Patient identity was verified. Encounter was conducted via Telehealth Modality. Verbal informed consent was obtained from the Caregiver at the time of the encounter. CAPS-Lock procedure was completed to secure the virtual medical room. TYPE OF ENCOUNTER: [facility] VISIT Psychotherapy LENGTH OF ENCOUNTER: 42 minutes DATE: Jan TREATMENT GOAL(S): To identify strategies for improving connection with self and others and increase well-being. STRENGTHS: The CG appears to be amiable and motivated for treatment at this time. CONTENT/ISSUES ADDRESSED: The CG presented to this session on time. She reported having recent GI issues which prevented her from sleeping most of the weekend. She reported a low mood today, sharing, there's a lot I need to do, but it's hard to motivate. She described feeling depleted by the clutter and dust in her home. We discussed SMART goal setting around her organizational goals, identifying a specific, manageable, action-oriented, realistic, and time-bound goal of cleaning out the closet that stores her dog food and various other items. This clinician elicited obstacles to achieving this goal, and the CG discussed the burden of being asked to babysit for her grandchildren (ages 10, 8, 6, and 4) at the last minute. We discussed using this as an opportunity to engage her grandchildren in the process of organizing and modeling this life skill for them. The CG reports her home will be getting a new furnace, water heater, vent, and crawl space insulation from [employer] this year. She reports she and her will have an appointment on with his [facility] doctor about writing a letter for their POA. She also shared Rich might need to be re-evaluated for 100% disability in the next year. INTERVENTIONS UTILIZED: Mindfulness-Based Cognitive Therapy (MBCT). Gas Tender guided the client's self-exploration and encouraged space for reflection and insight. Explored interpersonal dynamics in family relationships. Normalized stressors and reflected strengths. Elicited coping strategies. RESPONSE TO INTERVENTION: No adverse reactions. The client was engaged and collaborative throughout this session. MENTAL STATUS EXAMINATION WITH SAFETY ASSESSMENT/PLANNING: -Orientation: person, place, time -Mood was euthymic -Affect: flat -Psychomotor: was relatively calm and responsive. -Speech: normal rate, rhythm, and volume. -Stream of Thought: perseverative; amenable to redirection -Thought Content: no evidence of a formal thought disorder. -Insight and judgment: fair to good -Fund of information: grossly intact; no [...] Impulsivity [ ] Mood Exacerbation PROTECTIVE FACTORS: [x] Evidence of accessible and positively motivated social supports [x] Therapeutic alliance with a mental health professional [ ] Children dependent on the patient for primary care [x] Future-oriented plans and commitments [x] Personal, Cultural, or Anglican Beliefs for Self-Preservation ASSESSMENT OF SUICIDE RISK: Low ASSESSMENT OF HOMICIDE RISK: Low IMPRESSION (DSM5 Criteria): Persistent Depressive Disorder (dysthymia; F43.1) Major Depressive Disorder, recurrent, moderate (F33.1) Anxiety, unspecified (F41.9) Dependent relative needing care at home (Z63.6) TREATMENT PLAN: Continue psychotherapy to address the above treatment goals. RTC on 02/16 @ 1000. /es/ RICHARD GRIDER PSYCHOLOGIST Signed: 01/26/2025 15:32 RICHARD GRIDER [facility]
--- OUTSIDE RECORDS SUMMARY | 2025-02-11 09:44 | XMS_ITS | Encounter Summary ---
Author Name [facility] [place] Address [address] [place] [address] Care Team Providers Care Ocean Export Agent Name Role Phone WALDEMAR PRUITT Primary Care [...] [facility] (WNR) MEDICARE ADVANTAGE MCR ([facility]) Oct 28, 2023 [id number] [phone] MARINO BOOTH PATIENT -FO R-LIFE TRICA RE FOR LIFE [facility] Jul 28, 2021 FOR LIFE [id number] MARINO BOOTH PATIENT -FO R-LIFE TRICA RE FOR LIFE [facility] Jul 28, 2021 FOR LIFE [id number] [phone] KIM BOOTH HARD SPOUSE [facility] ([facility]) MEDICARE ADVANTAGE MCR ([facility]) Jul 28, 2021 [id number] [phone] MARINO BOOTH PATIENT Selected Encounter This section includes the information on record at [place] for the Encounter. Date/Time Encounter Type Encounter Description Reason Provider Source Jan 26, 2025 02:00 PM PSYTX W PT 45 MINUTES CAREGIVER SUPPORT PROGRAM ICD-10-CM F34.1 Dysthymic disorder CHEORICHARD Ayesha [facility] Encounter Template Text not used by [place] Assessments - Encounter Diagnoses This section includes the primary and secondary diagnoses documented for the Encounter. Date/Time Primary/Secondary Diagnosis Diagnosis Name Provider Source Jan 26, 2025 02:49 PM PRIMARY Dysthymic disorder RICHARD GRIDER [facility] Jan 26, 2025 02:49 PM SECONDARY Anxiety disorder, unspecified DUSTY GRIDERREY Ayesha [facility] Jan 26, 2025 02:49 PM SECONDARY Dependent relative needing care at home CHEORICHARD Ayesha [facility] Jan 26, 2025 02:49 PM SECONDARY Major depressive disorder, recurrent, moderate RICHARD GRIDER [facility] Plan of Treatment: Future Appointments (+ 6 months) and Future Tests (+/- 45 days) The Plan of Treatment section includes future care activities for the patient from all [place] treatmentfacilities. This section includes future appointments and future orders which are active, pending or scheduled. Future Appointments This section includes appointments that were scheduled to occur 6 months from the date of the Encounter, up to a maximum of 20 appointments. The data comes from all [place] treatment facilities. Appointment Date/Time Appointment Type Appointme nt Facility Name Feb 16, 2025 10:00 AM AMBULATORY - [facility]ATRY [facility] Feb 16, 2025 10:00 AM AMBULATORY - NONE [facility] March 23, 2025 12:30 PM AMBULATORY - PSYCHIATRY [facility] Encounter Notes: All associated encounter notes This section contains the clinical notes associated to the Encounter. Date/Time Encounter Note(s) Provider Source Jan 26, 2025 09:18 AM CAREGIVER CERTIFIC ATE: LOCAL TITLE: [facility] INDIVIDUAL PSYCHOTHERAPY NOTE STANDARD TITLE: CAREGIVER CERTIFICATE DATE OF NOTE: JAN 26, 2025@09:18 ENTRY DATE: JAN 26, 2025@09:18:35 AUTHOR: RICHARD GRIDER EXP COSIGNER: URGENCY: STATUS: COMPLETED The telehealth encounter was conducted with the caregiver in [employer] system today. Please see Arrad[facility] Viewer for progress note, clinical reminders, and patient orders. - Telehealth Help Desk or [phone] /es/ RICHARD GRIDER PSYCHOLOGIST Signed: 01/26/2025 14:49 RICHARD GRIDER [facility]
--- OUTSIDE RECORDS SUMMARY | 2025-02-11 09:44 | XMS_ITS | Encounter Summary ---
Author Name [facility] [place] Address [address] [place] [address] Care Team Providers Care Clerical Adjudicator Name Role Phone WALDEMAR PRUITT Primary Care [...] Baldwin [facility] (WNR) MEDICARE ADVANTAGE MCR ([facility]) Oct 28, 2023 [id number] [phone] MARINO BOOTH PATIENT -FO R-LIFE TRICA RE FOR LIFE [facility] Jul 28, 2021 FOR LIFE [id number] [phone] MARINO BOOTH PATIENT -FO R-LIFE TRICA RE FOR LIFE [facility] Jul 28, 2021 FOR LIFE [id number] [phone] KIM BOOTH HARD SPOUSE [facility] ([facility]) MEDICARE ADVANTAGE MCR ([facility]) Jul 28, 2021 [id number] MARINO BOOTH PATIENT Selected Encounter This section includes the information on record at [place] for the Encounter. Date/Time Encounter Type Encounter Description Reason Pro vider Source Dec 07, 2024 01:00 PM Outpatient Encounter ADMIN PAT ACTIVTIES (MASNONCT) IHE Encounter Template Text not used by [place] Plan of Treatment: Future Appointments (+ 6 months) and Future Tests (+/- 45 days) The Plan of Treatment section includes future care activities for the patient from all [place] [facility] This section includes future appointments and future orders which are active, pending or scheduled. Future Appointments This section includes appointments that were scheduled to occur 6 months from the date of the Encounter, up to a maximum of 20 appointments. The data comes from all [place] treatment facilities. Appointment Date/Time Appointment Type Appointme nt Facility Name Dec 22, 2024 01:00 PM [facility]ORY [facility]ONE [facility] Dec 22, 2024 01:00 PM AMB[facility] - [facility]IATRY [facility] Jan 07, 2025 10:00 AM AMBULATORY - NONE [facility] Jan 07, 2025 10:00 AM AMBULATORY - [facility]IATRY [facility] Jan 11, 2025 01:30 PM [facility]ULATORY - NONE [facility] Jan 11, 2025 01:30 PM AMBULATORY - [facility]IATRY [facility] Jan 21, 2025 10:00 AM AMBULATORY - NONE [facility] Jan 21, 2025 10:00 AM AMBULATORY - [facility]CHIATRY [facility] Jan 26, 2025 02:00 PM AMBULATORY - NONE [facility] Jan 26, 2025 02:00 PM AMBULATORY - [facility]IATRY [facility] Feb 16, 2025 10:00 AM AMBULATORY - [facility]ATRY [facility] Feb 16, 2025 10:00 AM AMBULATORY - NONE [facility] March 23, 2025 12:30 PM AMBULATORY - PSYCHIATRY [facility] Encounter Notes: All associated encounter notes This section contains the clinical notes associated to the Encounter. Date/Time Encounter Note(s) Provider Source Dec 07, 2024 01:09 PM CAREGIVER CERTIFIC ATE: LOCAL TITLE: [facility] INDIVIDUAL PSYCHOTHERAPY NOTE STANDARD TITLE: CAREGIVER CERTIFICATE DATE OF NOTE: DEC 07, 2024@13:09 ENTRY DATE: DEC 07, 2024@13:09:09 AUTHOR: RICHARD GRIDER COSIGNER: URGENCY: STATUS: COMPLETED [facility] 15 CLINICAL RESOURCE [facility] - FOLLOW UP PSYCHOLOGY VISIT VIRTUAL PSYCHOTHERAPY PROGRAM FOR CAREGIVERS ([facility]) Patient identity was verified. Encounter was conducted via Telehealth Modality. Verbal informed consent was obtained from the Caregiver at the time of the encounter. CAPS-Lock procedure was completed to secure the virtual medical room. TYPE OF ENCOUNTER: [facility] VISIT Brief Telehealth Check-In LENGTH OF ENCOUNTER: 5 minutes DATE: Nov TREATMENT GOAL(S): To identify strategies for improving connection with self and others and increase well-being. STRENGTHS: The CG appears to be amiable and motivated for treatment at this time. CONTENT/ISSUES ADDRESSED: The CG presented to this session on time. She reported feeling ill for the past 4 days; she shared that otherwise she has been psychologicaly stable for the past several weeks. After a brief check-in about the CG's emotional well-being, CG and this clinician mutually agreed to end this visit early and confirmed the CG's next scheduled appointment. INTERVENTIONS UTILIZED: Brief supportive therapy. RESPONSE TO INTERVENTION: No adverse reactions. MENTAL STATUS EXAMINATION WITH SAFETY ASSESSMENT/PLANNING: -Orientation: person, place, time -Mood was euthymic -Affect: congruent with stated mood and symptoms. [...] plans and commitments [x] Personal, Cultural, or Mosque Beliefs for Self-Preservation ASSESSMENT OF SUICIDE RISK: Low ASSESSMENT OF HOMICIDE RISK: Low IMPRESSION (DSM5 Criteria): Persistent Depressive Disorder (dysthymia; 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 RTC on 12/22 @ 1300. /es/ RICHARD GRIDER PSYCHOLOGIST Signed: 12/07/2024 13:49 RICHARD GRIDER [facility]
--- OUTSIDE RECORDS SUMMARY | 2025-02-11 09:44 | XMS_ITS | Continuity of Care Document ---
Author Name [facility] Organization [facility] Care Team Providers Care 3D Modeler Name Role Phone [facility] Unavailable Unavailable Problems Combined list of problems from Department of Defense and Veterans Affairs facilities. It does not include entries that were removed or entered in error. Problem Status Onset Date Problem Type Date of Resolution Comments Source Allergic rhinitis Active Condition [facility] Anxiety Active Condition [facility] Caregiver role strain Active Condition [facility] Chronic pain of left foot Active Condition [facility] Depression ([facility] [id number]) Active Condition [facility] Dysthymia Active Condition [facility] Gastritis Active Condition [facility] Gastro-esophagea l reflux disease without esophagitis Active Condition Nov 21, 2021 Entered By: KATHERINE JUAREZ Comment: EGD done 05/08/21 and dx with antral gastritis w/o bleeding and neg H pylori [facility] Hypertension Active Condition [facility] Insomnia Active Condition [facility] Low back pain Active Condition [facility] Recurrent major depressive episodes, moderate Active Condition [facility] Right side sciatica Active Condition [facility] Spasm of back muscles Active Condition [facility] Vitamin D deficiency Active Condition [facility] Diagnosis: ICD-10-CM F34.1 Dysthymic disorder Active Diagnosis [facility] [facility] Diagnosis: ICD-10-CM Z63.79 Other stressful life events affecting family and household Active Diagnosis [facility] Diagnosis: ICD-10-CM F32.A Depression, unspecified Active Diagnosis [facility] Diagnosis: ICD-10-CM Z63.6 Dependent relative needing care at home Active Diagnosis [facility] Diagnosis: ICD-10-CM F33.0 Major depressive disorder, recurrent, mild Active Diagnosis [facility] [place] [facility] Diagnosis: ICD-10-CM F41.9 Anxiety disorder, unspecified Active Diagnosis [facility] [place] [facility] Diagnosis: ICD-10-CM Z73.3 Stress, not elsewhere classified Active Diagnosis [facility] Diagnosis: ICD-10-CM F33.41 Major depressive disorder, recurrent, in partial remission Active Diagnosis [facility] Diagnosis: ICD-10-CM Z71.89 Other specified counseling Active Diagnosis [facility] Diagnosis: ICD-10-CM F43.89 Other reactions to severe stress Active Diagnosis [facility] Medications Combined list of outpatient medications from Department of Defense and Veterans Affairs facilities.Medications provided include 1) outpatient medications from the last 15 months, and 2) patient-reported medications. Medication Details Route Status Patient Instructions Prescription Expires Prescription Number Last Dispense Date Ordering Provider Order Date Order Qty Source BUPROPION HCL 150MG 24HR TAB,SA TAKE ONE TABLET BY MOUTH EVERY MORNING FOR MOOD ORAL DISCONT INUED BY PROVIDE R 11/24/2025 [id number] LOITERSTE INLAYO A [address] [place] [address] [facility] BUPROPION HCL 150MG 24HR TAB,SA TAKE ONE TABLET BY MOUTH EVERY MORNING FOR MOOD ORAL DISCONT INUED 11/05/2024 [id number] GARY CHUA [address] [place] [address] [facility] LIDOCAINE 5% PATCH APPLY 1 PATCH TO SKIN SITE ONCE A DAY APPLY PATCH AND PRESS FIRMLY FOR 10-15 SECONDS. KEEP ON FOR 12 HOURS THEN REMOVE PATCH FOR 12 HOURS. TRANSD ERMAL ACTIVE 02/26/2025 [id number] 5 GARY CHUA [address] [place] [address] DIVIS[facility] N MELATONIN 5MG CAP/TAB TAKE ONE CAP/TAB BY MOUTH AT BEDTIME FOR SLEEP ORAL 11/05/2024 [id number] 5 GARY CHUA [address] [place] [address] DIVISIO N TRAZODONE HCL 100MG TAB TAKE TWO TABLETS BY MOUTH AT BEDTIME NEEDED FOR SLEEP ORAL ACTIVE 11/24/2025 [id number] 5 LOITERSTE INLAYO 2024 180 [facility] DIVISIO N TRAZODONE HCL 100MG TAB TAKE TWO TABLETS BY MOUTH AT BEDTIME ORAL DISCONT INUED (EDIT) 02/26/2025 [id number] 5 GARY CHUA 2023 180 [facility] DIVISIO N TRAZODONE HCL 100MG TAB TAKE ONE AND ONE-HALF TABLETS BY MOUTH AT BEDTIME FOR SLEEP ORAL DISCONT INUED (EDIT) 11/05/2024 [id number] 4 GARY CHUA 2023 135 [facility] DIVISIO N VENLAFAXINE HCL 150MG 24HR CAP,SA TAKE ONE CAPSULE BY MOUTH ONCE A DAY FOR MOOD/ANX IETY WITH FOOD. DO NOT ABRUPTLY DISCONTI NUE MEDICATI ON. ORAL DISCONT INUED (EDIT) 11/24/2025 [id number] 5 LOITERSTE INLAYO Celia 2024 90 [facility] DIVISIO N VENLAFAXINE HCL 150MG 24HR CAP,SA TAKE ONE CAPSULE BY MOUTH ONCE A DAY FOR MOOD/ANX IETY WITH FOOD. DO NOT ABRUPTLY DISCONTI NUE MEDICATI ON. ORAL DISCONT INUED 11/05/2024 [id number] 5 GARY CHUA 2023 90 [facility] DIVISIO N VENLAFAXINE HCL 75MG 24HR CAP,SA TAKE THREE CAPSULES BY MOUTH ONCE A DAY WITH FOOD FOR MOOD/ANX IETY. DO NOT ABRUPTLY DISCONTI NUE MEDICATI ON. ORAL ACTIVE 01/11/2026 [id number] 5 LOITERSTE INLAYO Celia 2024 270 [facility] DIVISIO N Immunizations Combined list of available immunizations from the Department of Defense and Veterans Affairs facilities. Immunization Series Date Given Administered By Site Reaction Lot Number CVX Code Drug Snaker Status Comments Source INFLUENZA, INJECTABLE, QUADRIVALENT, PRESERVATIVE FREE 2020 150 complet [facility] INFLUENZA, SEASONAL, INJECTABLE 2020 141 complet [facility] INFLUENZA, UNSPECIFIED FORMULATION 2020 88 complet ed [facility] (MODERNA), MRNA, LNP-S, PF, 100 MCG/0.5 ML DOSE 2 2020 207 complet ed [facility] COVID-19 (MODERNA), MRNA, LNP-S, PF, 100 MCG/0.5 ML DOSE 1 2020 207 complet ed [facility] Encounters Combined list of: 1) Encounters from Department of Veterans Affairs facilities going backup to the last 18 months, not all [place] inpatient encounters are included; 2) Encounters from the Department of [facility] facilities going backup to 280 months. Location Location Details Encounter Type Encounter Number Reason For Visit Attending Provider ADM Date DC Date Status Disposition Source [facility] [place] [id number] Diagnos is: ICD-10- CM F43.89 Other reactio ns to severe stress CHESHER,RE SHANTEL 08/13 [facility] Outpatient Encounter [id number] 08/20 [facility] PSYCHOTHER APY [id number] [id number] Diagnos is: ICD-10- CM F43.89 Other reactio ns to severe stress CHESHER,RE SHANTEL 08/27 [facility] Outpatient Encounter [id number] [id number] CHESHER,RE SHANTEL 09/03 [facility] En[facility] [id number] [id number] 09/04 [facility] [id number] [id number] Diagnos is: ICD-10- CM F43.89 Other reactio ns to severe stress CHESHER,RE SHANTEL 09/10 [facility] PS[facility]CH[facility]Y [id number] Diagnos is: ICD-10- CM F43.89 Other reactio ns to severe stress CHESHER,RE SHANTEL 09/17 [facility] OFFICE O/P EST MOD 30-39 MIN 13609-3.65 [id number] Diagnos is: ICD-10- CM F32.A Depress ion, unspeci fiCarrington Rocha R 09/17 [facility] Outpatient Encounter [id number] [id number] CHESHER,RE SHANTEL 09/24 [facility] Outpatient Encounter [id number] [id number] NEFTALY RODRIGUEZ M 10/01 [facility] Outpatient Encounter [id number] [id number] NEFTALY RODRIGUEZ M 10/14 [facility] Outpatient Encounter [id number] [id number] 10/14 [facility] ASSMT/REAS SESSMENT [id number] [id number] Diagnos is: ICD-10- CM Z73.3 Stress, not elsewhe re classif ied OZZIE ESPINAL 10/15 [facility] Outpatient Encounter [id number] [id number] 10/16 [facility] OFFICE O/P EST MOD 30 MIN [id number] [id number] Diagnos is: ICD-10- CM F32.A Depress ion, unspeci fied Carrington CHUA ATTKELLEE R 11/05 [facility] FAMILY PSYTX W/PT 50 MIN [id number] [id number] Diagnos is: ICD-10- CM Z63.6 Depende nt relativ e needing care at home CORINE DAVIDSON A 11/05 [facility] Outpatient Encounter [id number] [id number] 11/07 [facility] Outpatient Encounter [id number] [id number] NAVINJAYLA SHANTEL 11/07 [facility] OFFICE O/P EST MOD 30 MIN [id number] [id number] Diagnos is: ICD-10- CM F33.41 Major depress jonah disorde r, recurre nt, in partial remissi on Carrington CHUA ATTKELLEE R 12/12 [facility] [id number] [id number] Diagnos is: ICD-10- CM Z71.89 Other specifi ed drapery counselor NEFTALY Landers 12/17 [facility] Outpatient Encounter [id number] [id number] 12/17 [facility] HC PRO PHONE CALL 5-10 MIN [id number] [id number] Diagnos is: ICD-10- CM Z63.79 Other stressf ul life events affecti ng family and househo ld MAGDALENO SANCHEZ 12/18 [facility] Outpatient Encounter [id number] [id number] 12/19 [facility] Outpatient Encounter [id number] [id number] DUTCHEMILIALuis BRYCEAXEL Hodge 12/20 [facility] PSYCH DIAGNOSTIC EVALUATION [id number] [id number] Diagnos is: ICD-10- CM F33.0 Major depress jonah disorde r, recurre nt, mild COLABELLAANUSHALL A 12/30 [facility] Outpatient Encounter [id number] [id number] COLABELLANUSHA YangLL A 12/30 [facility] SELF-HELP/ PEER SVC PER 15MIN [id number] [id number] Diagnos is: ICD-10- CM Z71.89 Other specifi ed drapery counselor ing Melanie GALLEGOS 01/01 [facility] Outpatient Encounter [id number] [id number] Melanie GALLEGOS 01/02 [facility] PRO PHONE CALL 5-10 MIN [id number] [id number] Diagnos is: ICD-10- CM Z73.3 Stress, not elsewhe re classif ied DARIANA AMAYA 01/07 [facility] SELF-HELP/ PEER SVC PER 15MIN [id number] [id number] Diagnos is: ICD-10- CM Z71.89 Other specifi ed drapery counselor ing EL,P NONA S 01/08 [facility] [place] [facility] PSYTX W PT 60 MINUTES [id number] [id number] Diagnos is: ICD-10- CM F33.0 Major depress jonah disorde r, recurre nt, mild COLABELLA, MYA A 01/13 [facility] [place] [facility] Outpatient Encounter [id number] [id number] 01/13 [facility] SELF-HELP/ PEER SVC PER 15MIN 91198-7.65 [id number] Diagnos is: ICD-10- CM Z71.89 Other specifi ed drapery counselor ing EL,P NONA S 01/15 [facility] SELF-HELP/ PEER SVC PER 15MIN [id number] [id number] Diagnos is: ICD-10- CM Z71.89 Other specifi ed drapery counselor ing EL,P NONA S 01/26 [facility] [place] [facility] PSYTX W PT 60 MINUTES [id number] [id number] 460 Diagnos is: ICD-10- CM F33.0 Major depress jonah disorde r, recurre nt, mild COLABELLA, MYA A 01/29 [facility] [place] [facility] Outpatient Encounter [id number] [id number] 01/29 [facility] SELF-HELP/ PEER SVC PER 15MIN [id number] [id number] Diagnos is: ICD-10- CM Z71.89 Other specifi ed drapery counselor ing EL,P NONA S 02/02 [facility] [place] [facility] PSYTX W PT 60 MINUTES [id number] [id number] Diagnos is: ICD-10- CM F33.0 Major depress jonah disorde r, recurre nt, mild COLABELLA, MYA A 02/12 [facility] [place] [facility] Outpatient Encounter [id number] [id number] 02/12 [facility] Outpatient Encounter [id number] [id number] 02/13 [facility] [place] [facility] PSYTX W PT 45 MINUTES [id number] [id number] Diagnos is: ICD-10- CM F33.0 Major depress jonah disorde r, recurre nt, mild COLABELLA, MYA A 02/19 [facility] [place] [facility] Outpatient Encounter [id number] [id number] 02/19 [facility] DIV[facility] OFFICE O/P EST MOD 30 MIN [id number] [id number] Diagnos is: ICD-10- CM F33.41 Major depress jonah disorde r, recurre nt, in partial remissi on TOCCarrington REYES ATTHEW R 02/[address] [facility] CASE MANAGEMENT [id number] [id number] Diagnos is: ICD-10- CM Z63.6 Depende nt relativ e needing care at home JOSE LUIS,GIYeny Martinez 03/10 [facility] [place] [facility] PSYTX W PT 60 MINUTES 48116-9.58 [id number] 316 Diagnos is: ICD-10- CM F33.0 Major depress jonah disorde r, recurre nt, mild COLABELLA, MYA A 03/12 [facility] [place] [facility] Outpatient Encounter [id number] 03/12 [facility] [place] [facility] PSYTX W PT 60 MINUTES [id number] [id number] Diagnos is: ICD-10- CM F33.0 Major depress jonah disorde r, recurre nt, mild COLABELLA, MYA A 03/26 [facility] [place] [facility] Outpatient Encounter [id number] [id number] 03/26 [facility] [place] [facility] PSYTX W PT 45 MINUTES [id number] [id number] Diagnos is: ICD-10- CM F33.0 Major depress jonah disorde r, recurre nt, mild COLABELLA, MYA A 04/09 [facility] [place] [facility] Outpatient Encounter [id number] [id number] 04/09 [facility] [place] [facility] PSYTX W PT 60 MINUTES [id number] [id number] Diagnos is: ICD-10- CM F33.0 Major depress jonah disorde r, recurre nt, mild COLABELLA, MYA A 04/28 [facility] [place] [facility] Outpatient Encounter [id number] [id number] 04/28 [facility] SELF-HELP/ PEER SVC PER 15MIN [id number] [id number] Diagnos is: ICD-10- CM Z71.89 Other specifi ed drapery counselor Melanie Broussard 05/07 [facility] SELF-HELP/ PEER SVC PER 15MIN [id number] [id number] Diagnos is: ICD-10- CM Z71.89 Other specifi ed drapery counselor ing Melanie GALLEGOS 05/14 [facility] [place] [facility] PSYTX W PT 60 MINUTES [id number] [id number] Diagnos is: ICD-10- CM F33.0 Major depress jonah disorde r, recurre nt, mild COLABELLA, MYA A 05/21 [facility] Outpatient Encounter [id number] [id number] 05/21 [facility] OFFICE O/P EST MOD 30 MIN [id number] [id number] Diagnos is: ICD-10- CM F33.41 Major depress jonah disorde r, recurre nt, in partial remissi on Carrington CHUA ATTHEW R 05/[address] [facility] HC PRO PHONE CALL 5-10 MIN [id number] [id number] Diagnos is: ICD-10- CM Z63.79 Other stressf ul life events affecti ng family and househo ld MYAH LINDO 05/29 [facility] Outpatient Encounter [id number] [id number] 05/29 [facility] [place] [facility] PSYTX W PT 60 MINUTES [id number] [id number] Diagnos is: ICD-10- CM F33.0 Major depress jonah disorde r, recurre nt, mild COLABELLA, MYA A 06/08 [facility] Outpatient Encounter [id number] [id number] 06/08 [facility] Outpatient Encounter [id number] [id number] 06/18 [facility] [place] [facility] PSYTX W PT 60 MINUTES [id number] [id number] Diagnos is: ICD-10- CM F33.0 Major depress jonah disorde r, recurre nt, mild COLABELLA, MYA A 06/22 [facility] Outpatient Encounter [id number] [id number] 06/22 [facility] HC PRO PHONE CALL 11-20 MIN [id number] [id number] Diagnos is: ICD-10- CM Z73.3 Stress, not elsewhe re classif ied BELGICAMYAH CHERRY Celia Shultz 06/23 [facility] Outpatient Encounter [id number] [id number] 06/25 [facility] HC PRO PHONE CALL 11-20 MIN [id number] [id number] Diagnos is: ICD-10- CM Z63.79 Other stressf ul life events affecti ng family and househo ld BELGICAINOCENCIA CHERRYDuarte Shultz 07/02 [facility] [place] [facility] PSYTX W PT 45 MINUTES 90612-2.58 [id number] Diagnos is: ICD-10- CM F41.9 Anxiety disorde r, unspeci fied COLABEANUSHA LACEYLL A 07/09 [facility] Outpatient Encounter [id number] [id number] 07/09 [facility] CASE MANAGEMENT [id number] Diagnos is: ICD-10- CM Z63.6 Depende nt relativ e needing care at home JOSE LUISADRIANA ZENG Celia Martinez 07/13 [facility] [place] [facility] PSYTX W PT 30 MINUTES 06214-5.58 [id number] Diagnos is: ICD-10- CM F33.0 Major depress jonah disorde r, recurre nt, mild COLABELLA, MYA A 07/21 [facility] Outpatient Encounter [id number] [id number] 07/21 [facility] Outpatient Encounter [id number] [id number] 08/06 [facility] [place] [facility] PSYTX W PT 60 MINUTES 03823-4.58 [id number] Diagnos is: ICD-10- CM F33.0 Major depress jonah disorde r, recurre nt, mild COLABELLA, MYA A 08/13 [facility] [place] [facility] [place] [facility] PSYTX W PT 60 MINUTES 94112-2.58 [id number] Diagnos is: ICD-10- CM F33.0 Major depress jonah disorde r, recurre nt, mild COLABELLA, MYA A 08/27 [facility] [place] [facility] Outpatient Encounter [id number] [id number] 08/27 [facility] HC PRO PHONE CALL 21-30 MIN [id number] [id number] Diagnos is: ICD-10- CM Z63.6 Depende nt relativ e needing care at home ADRIANA AMAYA 09/10 [facility] [place] [facility] PSYTX W PT 45 MINUTES 13965-3.58 [id number] Diagnos is: ICD-10- CM F33.0 Major depress jonah disorde r, recurre nt, mild COLABELLA, MYA A 09/15 [facility] [place] [facility] Outpatient Encounter [id number] [id number] 09/15 [facility] Outpatient Encounter [id number] [id number] 09/28 [facility] [place] [facility] PSYTX W PT 45 MINUTES 06211-9.58 [id number] Diagnos is: ICD-10- CM F33.0 Major depress jonah disorde r, recurre nt, mild COLABELLAMYA A 10/08 [facility] [place] Outpatient Encounter [id number] [id number] 10/08 [facility] [place] [facility] PSYTX W PT 60 MINUTES [id number] [id number] 451 Diagnos is: ICD-10- CM F34.1 Dysthym ic disorde r YEISON GRIDER G 11/05 [facility] [place] Outpatient Encounter [id number] [id number] 11/05 [facility] HLTH BHV ASSMT/REAS SESSMENT [id number] [id number] Diagnos is: ICD-10- CM Z63.6 Depende nt relativ e needing care at home ADRIANA AMAYA 11/09 [facility] [place] [facility] PSYTX W PT 60 MINUTES 00405-5.58 [id number] Diagnos is: ICD-10- CM F34.1 Dysthym ic disorde r YEISON GRIDER G 11[facility]17 [facility] Out[facility] Encounter [id number] [id number] 11/17 [facility] Outpatient Encounter [id number] [id number] 11/17 [facility] PH1 ASSMT&MGMT NQHP 11-20 [id number] [id number] Diagnos is: ICD-10- CM Z63.79 Other stressf ul life events affecti ng family and househo ld MYAH LINDO 11/17 [facility] PT EDUCATION NOC INDIVID [id number] [id number] 2 Diagnos is: ICD-10- CM Z63.79 Other stressf ul life events affecti ng family and househo ld MYAH LINDO 11/19 [facility] Outpatient Encounter [id number] [id number] 11/19 [facility] OFFICE O/P EST HI 40 MIN 82096-4.65 [id number] Diagnos is: ICD-10- CM F32.A Depress ion, unspeci fied LAYO PENALOZA [facility] [id number] [id number] 12/[address] [facility] Outpatient Encounter [id number] [id number] 12/02 [facility] HLTH BHV IVNTJ INDIV EA ADDL [id number] [id number] Diagnos is: ICD-10- CM Z63.79 Other stressf ul life events affecti ng family and househo ld MYAH LINDO 12/03 [facility] [place] BRIEF COMUNICAJ TECH-BSD [facility] 64955-6.58 [id number] Diagnos is: ICD-10- CM F34.1 Dysthym ic disorde r YEISON GRIDER G 12/07 [facility] [place] [facility] Outpatient Encounter [id number] [id number] 12/07 [facility] Outpatient [facility]counter [id number] [id number] 12/09 [facility] [place] [facility] PSYTX W PT 45 MINUTES 01789-2.58 [id number] Diagnos is: ICD-10- CM F34.1 Dysthym ic disorde r YEISON GRIDER 12/22 [facility] [place] [facility] Outpatient Encounter [id number] [id number] 12/22 [facility] [place] [facility] PSYTX W PT 45 MINUTES 00777-4.58 [id number] Diagnos is: ICD-10- CM F34.1 Dysthym ic disorde r YEISON GRIDER 01/07 [facility] [place] [facility] Outpatient Encounter [id number] [id number] 01/07 [facility] Outpatient Encounter [id number] [id number] 01/07 [facility] [place] BRIEF COMUNICAJ TECH-BSD [facility] 53989-3.58 [id number] Diagnos is: ICD-10- CM F34.1 Dysthym ic disorde r YEISON GRIDER 01/11 [facility] [place] [facility] Outpatient Encounter [id number] [id number] 01/11 [facility] [place] [facility] PSYTX W PT 45 MINUTES 33281-7.58 [id number] Diagnos is: ICD-10- CM F34.1 Dysthym ic disorde r YEISON GRIDER 01/21 [facility] [place] [facility] Outpatient Encounter [id number] 01/21 [facility] [place] [facility] PSY[facility] W PT 45 MINUTES [id number] Diagnos is: ICD-10- CM F34.1 Dysthym ic disorde YEISON Blackman 01/26 [facility] [place] [facility] Outpatient Encounter [id number] 01/26 [facility] Social History Combined list of available smoking, tobacco, and other social history from [facility] of Defense and [facility] Affairs facilities. Social History Type Response Date Comment Sourc e Tobacco smoking status [facility] NEVER USED 02/24/2021 [facility] [place] [facility] Plan of Care List of future care activities from Department of Veterans Affairs facilities. Additional future care activities may be listed in the Assessment and Plan section. Date/Time Care Activity Care Activity Detail Facili ty 02/16/2025 AMBULATORY - PSYCHIATRY AMBULATORY - PS[facility]C [facility] [place] [facility]
--- OUTSIDE RECORDS SUMMARY | 2025-02-11 09:45 | XMS_ITS | Encounter Summary ---
Author Organization [facility] Facility Care Team Providers Care Last Model Department Supervisor Name Role Phone Lindy Haddad Primary Care Provider [phone] Gerald De La Cruz MD Primary Care Provider [phone] Niki Reardon AIR TRAFFIC CONTROL MANAGER Unavailable [phone] Encounter Details Date Type Department Care Team (Latest Contact Info) Description 03/27/2018 Orders Only [facility] CLINCONV Provider, MD Jeff [address] [place] [id number] Social History Tobacco Use Types Packs/Day Years Used Date Smoking Tobacco: Never Assessed Alcohol Use Standard Drinks/Week Comments Yes 0 (1 standard drink = 0.6 oz pur e alcohol) Comments Unknown Sex and Gender Information Value Date Recorded Sex Assigned at Not on file Legal Sex 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 us Historical Provider [facility] ROSITA MENSAH Final Result documented in this encounter Visit Diagnoses Not on filedocumented in this encounter Care Teams Last Model Department Supervisor Relationship Specialty Start Date End Date Lindy Haddad PA [address] [facility] [address] [place] [address] PCP - General Internal Medicine 02/24/19 01/24/22 Gerald De La Cruz MD [address] [place] [address] PCP - General Family Medicine 01/25/22 Niki Reardon NP [address] [facility] [address] [place] [address] Psychiatry 01/25/22 07/06/24 documented as of this encounter
--- OUTSIDE RECORDS SUMMARY | 2025-02-11 09:45 | XMS_ITS ---
Author Name [facility] [place] Organization [facility] [place] [facility] [place] Address [address] [place] [address] Care Team Providers Care Core Stripper Name Role Phone WALDEMAR PRUITT Primary Care [...] Baldwin [facility] (WNR) MEDICARE ADVANTAGE MCR ([facility]) Oct 28, 2023 [id number] [phone] MARINO BOOTH PATIENT -FO R-LIFE [facility] LIFE [facility] Jul 28, 2021 FOR LIFE [id number] MARINO BOOTH PATIENT -FO R-LIFE [facility] RE FOR LIFE [facility] Jul 28, 2021 FOR LIFE [id number] [phone] KIM BOOTH HARD SPOUSE [facility] ([facility] [employer] [facility]) MEDICARE ADVANTAGE MCR ([facility]) Jul 28, 2021 [id number] [phone] MARINO BOOTH PATIENT Selected Encounter This section includes the information on record at [place] for the Encounter. Date/Time Encounter Type Encounter Description Reason Provider Source February 26, 2024 04:00 PM OFFICE O/P EST MOD 30 MIN [facility] - IND ICD-10-CM F33.41 Major depressive disorder, recurrent, in partial remission CHOCO CHUA [place] Encounter Template Text not used by [place] Assessments - Encounter Diagnoses This section includes the primary and secondary diagnoses documented for the Encounter. Date/Time Primary/Secondary Diagnosis Diagnosis Name Provider Source February 26, 2024 11:12 PM PRIMARY Major depressive disorder, recurrent, in partial remission CHOCO CHUA [facility] February 26, 2024 11:12 PM SECONDARY Primary insomnia CHOCO CHUA [facility] Plan of Treatment: Future Appointments (+ 6 [...] Date/Time Appointment Type Appointme nt Facility Name March 10, 2024 11:00 AM AMBULATORY - MEDICINE [facility] March 12, 2024 12:30 PM AMBULATORY - NONE [facility] March 12, 2024 12:30 PM [facility]ORY [facility] NONE [facility] March 26, 2024 12:30 PM AMBULATORY - NONE [facility] March 26, 2024 12:30 PM [facility]ATORY - NONE [facility] Apr 09, 2024 12:30 PM AMBULATORY - NONE [facility] Apr 09, 2024 12:30 PM [facility]ORY - NONE [facility] Apr 23, 2024 02:30 PM AMBULATORY - NONE [facility] Apr 28, 2024 01:00 PM AMBULATORY - NONE [facility] Apr 28, 2024 01:00 PM [facility]BULATORY - NONE [facility] May 07, 2024 02:30 PM AMBULATORY - NONE [facility] May 14, 2024 02:30 PM AMBULATORY - NONE [facility] May 21, 2024 11:30 AM AMBULATORY - NONE [facility] May 21, 2024 11:30 AM [facility]ULATORY - NONE [facility] May 21, 2024 02:30 PM AMBULATORY - NONE [facility] May 28, 2024 01:30 PM AMBULATORY - PSYCHIATRY [facility] May 28, 2024 02:30 PM AMBULATORY - NONE [facility] Jun 04, 2024 02:30 PM AMBULATORY - NONE [facility] Jun 08, 2024 12:30 PM AMBULATORY - NONE [facility] Jun 08, 2024 12:30 PM [facility]BULATORY - NONE [facility] Encounter Notes: All associated encounter notes This section contains the clinical notes associated to the Encounter. Date/Time Encounter Note(s) Provider Source February 26, 2024 04:02 PM PSYCHIATRY NOTE: LOCAL TITLE: PSYCHIATRY [facility] STANDARD TITLE: PSYCHIATRY NOTE DATE OF NOTE: FEBRUARY 26, 2024@16:02 ENTRY DATE: FEBRUARY 26, 2024@16:02:49 AUTHOR: GARY CHUA EXP COSIGNER: URGENCY: STATUS: COMPLETED [facility] - MEDICATION MANAGEMENT Name..................MIS RAMOS Age...................68 Sex...................DONAL AUGUSTINEN...................[phone] Service Connection.... Service Connected: NO Rated Disabilities: NONE STATED PROBLEM LIST: 1) Hypertension 2) Vitamin D deficiency 3) Spasm of back muscles 4) Low back pain 5) Right side sciatica 6) Gastritis 7) Chronic pain of left foot 8) Recurrent major depressive episodes, moderate 9) Anxiety 10) Gastro-esophageal reflux disease without esophagitis 11) Allergic rhinitis 12) Depression ([facility] [id number]) 13) Caregiver role strain 14) Insomnia OUTPATIENT MEDICATIONS: Active Outpatient Medications (including Supplies): Active Outpatient [...] WITH FOOD. DO NOT ABRUPTLY DISCONTINUE MEDICATION. ALLERGIES: Patient has answered NKA VITAL SIGNS: Height: 65 in [165.1 cm] (02/24/2021 13:04) Weight: 187.2 lb [84.91 kg] (07/19/2021 11:42) BMI: 31.2 Temperature: 97.6 F [36.4 C] (07/19/2021 11:42) Blood Pressure: 114/72 (07/19/2021 11:42) Pulse: 71 (07/19/2021 11:42) Respirations: 16 (07/19/2021 11:42) Patient Weight History - Last Four 1. 187.2 lbs. / 84.9 kg. on JUL 19, 2021@11:42:05 2. 189.2 lbs. / 85.8 kg. on MAY 26, 2021@11:54:18 3. 188.4 lbs. / 85.5 kg. on FEB 24, 2021@13:04:05 PAST PSYCHIATRIC MEDICATION TRIALS: vet cannot recall BRIEF SUMMARY OF PREVIOUS MH HISTORY: History of depression and anxiety in the past as well as insomnia PAST PSYCHIATRIC HISTORY: * Prior hospitalizations: Denies * Prior suicide attempts: Denies Currently sees jaz CARRASQUILLO at [facility] for her psychiatric prescriptions FAMILY HISTORY: Question daughter with bipolar disorder but denies other relevant family psychiatric history. SUBSTANCE USE: * Tobacco: Denies use * EtOH: Denies use * Illicit drugs: Denies use SOCIAL HISTORY: for 35+ years. She actually went through a divorce with this individual for about 5 years and remarried. They have 2 biological grown daughters. She has 1 stepdaughter. Brooklyn is currently retired. 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 Denies significant physical, emotional, sexual trauma in childhood or . [place] TELEHEALTH: Consent: Brooklyn verbally consents to a clinical video telehealth follow-up appointment. Address: [address] [place] [address] Phone number:[phone] Survey: patient alone Lock: The virtual conference room was locked. Emergency contact redesignated as her daughter Rosio Hurtado who could be reached at [phone] per . Confirm number twice. Sent to eligibility for update. Veterans address changes as well. Sent this to nursing and scheduling for update. Shilpa Last visit: She reports she still gets lonely with her children not visiting as often. She still participates in her coffee club. She is going to dinner with a friend tomorrow and plans to start doing this on a weekly basis. She feels her medications are going well. She keeps the blinds open for daily sunlight. She would like to get involved again with whole. She is sleeping well and mood and anxiety are good otherwise. She denies SI, HI, AVH. TODAY: Brooklyn reports that she is pretty good. She has started therapy in the interim and has found it very helpful. Her daughter came in from [place] and they went through a storage unit. Michael notes some muscle aches and pains after and requests lidocaine patches stating she has been using them and finds these very beneficial. States that everything else is going good. She is meeting with her friends 2 or 3 times a week. She has continued her medications. Self adjusted trazodone to 200 mg nightly and is sleeping well. Denies SI, HI, AVH. MENTAL STATUS EXAM: Appearance: appears stated age Behavior: cooperative, friendly Eye contact: good Speech: unremarkable rate/rhythm Psychomotor: no psychomotor agitation or retardation Mood: Pretty good Affect: congruent, euthymic Thought process: linear, associations intact Thought content: denies suicidal ideation or homicidal ideation Perception: not seen reacting to internal stimuli. Denies AVH. Cognition: AOx3 Fund of knowledge: At least average Insight: fair Judgment: fair SAFETY RISK ASSESSMENT: Risk factors for suicide: Current stressors Protective factors: * denial of suicidal/homicidal ideation * no history of suicide attempts * no inpatient admissions * exhibits future planning * medication compliant * engaged in treatment * responsibility toward family History of violence: * none Acute risk of harm to self or others is low. Chronic risk of harm to self or others is low. Pt will benefit from ongoing outpatient mental health treatment. TIME SPENT IN ENCOUNTER (CHART REVIEW, INTERVIEW, DOCUMENTATION/ORDERS): 30 minutes SAFETY: is currently stable for outpatient care. Patient aware to call clinic/ED as appropriate if symptoms get worse. CONSENT: We discussed alternatives to treatment, including no treatment, as well as risks, benefits, side effects of prescribed medications. The patient understood and consented to treatment provided. Patient aware to call clinic/ED as appropriate if patient experiences side effects from medications. REMINDERS: Last F2F......................P ENDING C-SSRS.................... .... 06/11/2023 INSTRUCTIONS GIVEN TO PATIENT/FAMILY: * Report medication side effects promptly * If symptoms get worse, call clinic or Emergency Room as appropriate DIAGNOSES: Major depressive disorder, recurrent, in partial remission Anxiety disorder, unspecified (related to current stressors) Primary insomnia Caregiver burnout TREATMENT PLAN: 02/26/2024 Supply of lidocaine patches provided, discussed to get any further from PCP Increase trazodone to 200 mg nightly which is what she has been taking adjusted on her own Continue bupropion 150 mg XL Continue Effexor XR 150 mg daily Continue melatonin 5 mg at bedtime Continue with psychotherapy Continue with socialization with friends Follow-up 3 months or sooner if needed 12/12/2023 Continue bupropion 150 mg XL Continue Effexor Exar 150 mg daily Continue trazodone 150 mg nightly Continue melatonin 5 mg at bedtime Yong is hoping to get reestablished with [employer]. She has found the options to get involved very interesting and would like a phone call from somebody from [employer]. I have made an addendum to the most recent [facility] note relating this request Follow-up 2-3 months or sooner if needed 11/05/2023 Continue bupropion 150 mg XL Continue Effexor XR 150 mg daily (prescribed this as she had been getting it from outside provider) Continue trazodone 150 mg nightly (prescribed this as she had been getting it from outside provider) Trial of melatonin 5 mg at bedtime to assist with lingering sleep issues Continue with group therapy Consider other groups such as peers support or groups that do not meet on Saturday during her coffee club with friends and can be attended virtually Follow-up 5-6 weeks or sooner if needed 09/17/2023 Yong appears to have forgotten about starting bupropion. She will now trial the 150 mg XL in the morning Continue Effexor XR 150 mg daily in the morning through outside provider as well as trazodone 150 mg nightly. Will prescribe these medications when her insurance switches and she [facility] Discussed her medications in detail to ensure she has them correct Continue with therapy. Lily MARTÍNEZ group is beneficial Follow-up in about 6 weeks or sooner if needed 07/30/2023 Continue bupropion 150 XL prescribed through [place]. Yong is going to continue Effexor 150 mg daily by outside provider and trazodone 150 mg at bedtime by outside provider. She is going to discuss having those medicines prescribed through us with her outside provider in about a month at their visit. Continue with caregiver support Continue with psychotherapy Follow-up about 6 weeks 06/11/2023 -Yong will continue taking her home Effexor 150 mg daily by outside provider. I have discussed switching her bupropion as a 100 mg twice daily to bupropion XL 150 mg in the morning due to sleep implications and tolerability. She agrees with this change and will stop her home bupropion and start with changes directed. She will let me know with any side effects. In the future we may consider even backing down on some of the dose of Effexor if she is still highly stimulated. Consider mirtazapine but monitor for weight gain. She will continue with trazodone 150 mg at night through outside provider. Her concerns with cost of medication and co-pays which she can get for relatively cheap through outside provider and outside pharmacy. We will continue to work with this and can prescribe medication if she does not decide to continue with new established provider at her outside location. -Brooklyn believes she would benefit from therapy. She is struggling with stress of moving houses and of 35+ years now with significant dementia. She has caregiver burnout, feels overwhelmed with new responsibilities, and potentially starting with palliative care. Consult has been placed. -Follow-up approximately 6 weeks -Suicide screen conducted today 06/11/2023 /abimael/ GARY CHUA Staff Physician / Psychiatrist [facility] Signed: 03/04/2024 23:07 GARY CHUA [facility]
--- OUTSIDE RECORDS SUMMARY | 2025-02-11 09:45 | XMS_ITS ---
Author Name [facility] [place] Organization [facility] [place] Address [address] [place] [address] Care Team Providers Care Fuel Cell Engineer Name Role Phone WALDEMAR PRUITT Primary [...] [facility] (WNR) MEDICARE ADVANTAGE MCR ([facility]) Oct 28, 2023 [id number] [phone] MARINO BOOTH PATIENT -FO R-LIFE [facility] RE FOR LIFE [facility] Jul 28, 2021 FOR LIFE [id number] MARINO BOOTH PATIENT -FO R-LIFE TRICA RE FOR LIFE [facility] Jul 28, 2021 FOR LIFE [id number] [phone] KIM BOOTH HARD SPOUSE [facility] ([facility]) MEDICARE ADVANTAGE MCR ([facility]) Jul 28, 2021 [id number] [phone] MARINO BOOTH PATIENT Selected Encounter This section includes the information on record at [place] for the Encounter. Date/Time Encounter Type Encounter Description Reason Pro vider Source Feb 20, 2024 01:30 PM Outpatient Encounter ADMIN PAT ACTIVTIES (MASNONCT) IHE Encounter Template Text not used by [place] Plan of Treatment: Future Appointments (+ 6 months) and Future Tests (+/- 45 days) The Plan of Treatment section includes future care activities for the patient from all [place] treatmentfarandolph healthities. This section includes future appointments and future orders which are active, pending or scheduled. Future Appointments This section includes appointments that were scheduled to occur 6 months from the date of the Encounter, up to a maximum of 20 appointments. The data comes from all [place] treatment facilities. Appointment Date/Time Appointment Type Appointme nt Facility Name February 26, 2024 04:00 PM AMBULATORY - PSYCHIATRY [facility] March 10, 2024 11:00 AM AMBULATORY - MEDICINE [facility] March 12, 2024 12:30 PM AMBULATORY - NONE [facility] March 12, 2024 12:30 PM [facility]ORY - N[facility] March 26, 2024 12:30 PM AMBULATORY - NONE [facility] March 26, 2024 12:30 PM [facility]ATORY - NONE [facility] Apr 09, 2024 12:30 PM AMBULATORY - NONE [facility] Apr 09, 2024 12:30 PM [facility]ORY - [facility]ONE [facility] Apr 23, 2024 02:30 PM AMBULATORY - NONE [facility] Apr 28, 2024 01:00 PM AMBULATORY [facility] NONE [facility] Apr 28, 2024 01:00 PM AM[facility]ULATORY - NONE [facility] May 07, 2024 02:30 PM AMBULATORY - NONE [facility] May 14, 2024 02:30 PM AMBULATORY - NONE [facility] May 21, 2024 11:30 AM [facility] May 21, 2024 11:30 AM [facility] - [facility]ONE [facility] May 21, 2024 02:30 PM AMBULATORY - NONE [facility] May 28, 2024 01:30 PM AMBULATORY - PSYCHIATRY [facility] May 28, 2024 02:30 PM AMBULATORY - NONE [facility] Jun 04, 2024 02:30 PM AMBULATORY - NONE [facility] Jun 08, 2024 12:30 PM AMBULATORY - NONE [facility] Encounter Notes: All associated encounter notes This section contains the clinical notes associated to the Encounter. Date/Time Encounter Note(s) Provider Source Feb 20, 2024 01:33 PM CAREGIVER CERTIFIC ATE: LOCAL TITLE: [facility] INDIVIDUAL PSYCHOTHERAPY NOTE STANDARD TITLE: CAREGIVER CERTIFICATE DATE OF NOTE: FEB 20, 2024@13:33 ENTRY DATE: FEB 20, 2024@13:33:54 AUTHOR: MYA NUNEZ COSIGNER: URGENCY: STATUS: COMPLETED VISN 15 [employer] - FOLLOW UP [facility] PSYCHOLOGY VISIT Two patient identifiers were utilized in order to ensure accuracy of patient identification. Encounter was conducted via Telehealth Modality. Verbal informed consent was obtained from the Caregiver at the time of the encounter. TYPE OF ENCOUNTER: VVC VISIT Psychotherapy LENGTH OF ENCOUNTER: 51 Minutes EVIDENCED BASED TREATMENT UTILIZED: Cognitive Behavioral Psychotherapy SUBJECTIVE PRESENTING COMPLAINT: The CG indicated that she did not get her appointment link so provider resent the link a couple times and called the CG. She was able to join the session a few minutes late. The CG indicated that one of her storage units was cleaned out by her stepdaughter and the garage boxes to go through decreased. She reported being thrilled by the progress. She also reported a new lock was put on the storage unit she has had since 1995. She indicated that she continues to wish family will go through that unit and sell items for her and process all the contents. She indicated that if her family won't do it she will likely turn the contents over to the storage unit. She reported a long history of codependency in which she prefers family to drive her places and wanting their help with fixing her homes, organzing them, and helping her complete life tasks. She reported her used to always drive her places before he became ill. She reported that she feels nervous driving and only really liking driving to coffee shops to meet friends to socialize. She reported ambivalence about becoming more dependent and still having dreams that she will find others to deal with her difficult tasks for her. She reported thinking about giving her previous home back to the bank because she does not want to deal with insurance companies and the house repair. SUICIDALITY/HOMICIDALITY: [ X] asymptomatic [ ] current [...] and commitments [X ] Personal, Cultural, or Zoroastrianism Beliefs for Self Preservation ASSESSMENT OF SUICIDE [...] ] Watchful Waiting [X ] Psychotherapy Target goals:NM utilized to address openess to change regarding codependent and avoidant behaviors. Realistic expectations explored. [ ] sleep [ ] anxiety [ ] anger management [ ] mood [ ] relationship strain / communication RTC placed for f/u care. /abimael/ MYA NUNEZ Signed: 02/20/2024 15:39 MYA NUNEZ [facility]
--- OUTSIDE RECORDS SUMMARY | 2025-02-11 09:45 | XMS_ITS | Encounter Summary ---
Author Name [facility] [place] [facility] [place] Address [address] [place] [address] Care Team Providers Care Remote Broadcast Engineer Name Role Phone WALDEMAR PRUITT Primary [...] Baldwin [facility] (WNR) MEDICARE ADVANTAGE MCR ([facility]) Oct 28, 2023 [id number] [phone] MARINO BOOTH PATIENT -FO R-LIFE [facility] RE FOR LIFE [facility] Jul 28, 2021 FOR LIFE [id number] [phone] MARINO BOOTH PATIENT -FO R-LIFE [facility] RE FOR LIFE [facility] Jul 28, 2021 FOR LIFE [id number] [phone] KIM BOOTH HARD SPOUSE [facility] ([facility]) MEDICARE ADVANTAGE MCR ([facility]) Jul 28, 2021 [id number] MARINO BOOTH PATIENT Selected Encounter This section includes the information on record at [place] for the Encounter. Date/Time Encounter Type Encounter Description Reason Provider Source Apr 28, 2024 01:00 PM PSYTX W PT 60 MINUTES CAREGIVER SUPPORT PROGRAM ICD-10-CM F33.0 Major depressive disorder, recurrent, mild COLABELLA,MYA Yang IHE Encounter Template Text not used by [facility] Assessments - Encounter Diagnoses This section includes the primary and secondary diagnoses documented for the Encounter. Date/Time Primary/Secondary Diagnosis Diagnosis Name Provider Source Apr 28, 2024 02:16 PM PRIMARY Major depressive disorder, recurrent, mild COLABELLA,MYA [facility] Apr 28, 2024 02:16 PM SECONDARY Anxiety disorder, unspecified COLABELLA,MYA A PATRICA [facility] Apr 28, 2024 02:16 PM SECONDARY Dependent relative needing care at home MYA NUNEZ [facility] Plan of Treatment: Future Appointments (+ 6 months) and Future Tests (+/- 45 days) The Plan of Treatment section includes future care activities for the patient from all [place] treatmentfacilities. This section includes future appointments and future orders which are active, pending or scheduled. Future Appointments This section includes appointments that were scheduled to occur 6 months from the date of the Encounter, up to a maximum of 20 appointments. The data comes from all [place] treatment facilities. Appointment Date/Time Appointment Type Appointme nt Facility Name May 07, 2024 02:30 PM AMBULATORY - NONE [facility] May 14, 2024 02:30 PM AMBULATORY - NONE [facility] May 21, 2024 11:30 AM AMBULATORY - NONE [facility] May 21, 2024 11:30 AM AMBULATORY - NONE [facility] May 21, 2024 02:30 PM AMBULATORY - NONE [facility] May 28, 2024 01:30 PM AMBULATORY - PSYCHIATRY [facility] May 28, 2024 02:30 PM AMBULATORY - NONE [facility] Jun 04, 2024 02:30 PM AMBULATORY - NONE [facility] Jun 08, 2024 12:30 PM AMBULATORY - NONE [facility] Jun 08, 2024 12:30 PM AMBULATORY - NONE [facility] Jun 11, 2024 02:30 PM AMBULATORY - NONE [facility] Jun 22, 2024 12:30 PM AMBULATORY - NONE [facility] Jun 22, 2024 12:30 PM AMBULATORY - NONE [facility] Jul 09, 2024 11:30 AM AMBULATORY - NONE [facility] Jul 09, 2024 11:30 AM AMBULATORY - NONE [facility] Jul 21, 2024 10:30 AM AMBULATORY - NONE [facility] Jul 21, 2024 10:30 AM AMBULATORY - NONE [facility] Aug 06, 2024 10:00 AM AMBULATORY - NONE [facility] Aug 13, 2024 11:30 AM AMBULATORY - NONE [facility] Aug 27, 2024 10:30 AM AMBULATORY - NONE [facility] Encounter Notes: All associated encounter notes This section contains the clinical notes associated to the Encounter. Date/Time Encounter Note(s) Provider Source Apr 28, 2024 11:54 AM CAREGIVER CERTIFIC ATE: LOCAL TITLE: [facility] INDIVIDUAL PSYCHOTHERAPY NOTE STANDARD TITLE: CAREGIVER CERTIFICATE DATE OF NOTE: APR 28, 2024@11:54 ENTRY DATE: APR 28, 2024@11:55:22 AUTHOR: MYA NUNEZ EXP COSIGNER: URGENCY: STATUS: COMPLETED The telehealth encounter was conducted with the in the [facility]) system today . Please see [facility] Viewer for progress note, clinical reminders, and patient orders. /abimael/ MYA NUNEZ Signed: 04/28/2024 14:16 MYA NUNEZ [facility]
--- OUTSIDE RECORDS SUMMARY | 2025-02-11 09:45 | XMS_ITS ---
Author Name [facility] [place] [facility] [place] Address [address] [place] [address] Care Team Providers Care Sports Bookmaker Name Role Phone WALDEMAR PRUITT Primary Care [...] Baldwin [employer] [facility] (WNR) MEDICARE ADVANTAGE MCR ([facility]) Oct 28, 2023 [id number] [phone] MARINO BOOTH PATIENT -FO R-LIFE TRICA RE FOR LIFE [facility] Jul 28, 2021 FOR LIFE [id number] MARINO BOOTH PATIENT -FO R-LIFE TRICA RE FOR LIFE [facility] Jul 28, 2021 FOR LIFE [id number] [phone] KIM BOOTH HARD SPOUSE [facility] ([facility]) MEDICARE ADVANTAGE MCR ([facility]) Jul 28, 2021 [id number] [phone] MARINO BOOTH PATIENT Selected Encounter This section includes the information on record at [place] for the Encounter. Date/Time Encounter Type Encounter Description Reason Provider Source Nov 19, 2024 01:00 PM PT EDUCATION NOC INDIVID CAREGIVER SUPPORT PROGRAM ICD-10-CM Z63.79 Other stressful life events affecting family and household ZACHARIAH LINDO [facility] Encounter Template Text not used by [place] Assessments - Encounter Diagnoses This section includes the primary and secondary diagnoses documented for the Encounter. Date/Time Primary/Secondary Diagnosis Diagnosis Name Provider Source Nov 19, 2024 02:22 PM PRIMARY Other stressful life events affecting family and household ZACHARIAH LINDO [facility] Plan of Treatment: Future Appointments (+ 6 months) and Future Tests (+/- 45 days) The Plan of Treatment section includes future care activities for the [facility] [place] [facility]. This section includes future appointments and future orders which are active, pending or scheduled. Future Appointments This section includes appointments that were scheduled to occur 6 months from the date of the Encounter, up to a maximum of 20 appointments. The data comes from all [place] treatment facilities. Appointment Date/Time Appointment Type Appointme nt Facility Name Nov 23, 2024 02:30 PM AM[facility]ULATORY - [facility] Dec 07, 2024 01:00 PM AMBULATORY - NONE [facility] Dec 07, 2024 01:00 PM AMBULATORY - [facility]IATRY [facility] Dec 22, 2024 01:00 PM AMBULATORY - NONE [facility] Dec 22, 2024 01:00 PM AMBULATORY - [facility] Jan 07, 2025 10:00 AM AMBULATORY - NONE [facility] Jan 07, 2025 10:00 AM AMBULATORY - [facility]ATRY [facility] Jan 11, 2025 01:30 PM AMBULATORY - NONE [facility] Jan 11, 2025 01:30 PM AMBULATORY - [facility]IATRY [facility] Jan 21, 2025 10:00 AM AMBULATORY - NONE [facility] Jan 21, 2025 10:00 AM AMBULATORY - [facility]IATRY [facility] Jan 26, 2025 02:00 PM AMBULATORY - NONE [facility] Jan 26, 2025 02:00 PM AMBULATORY - [facility]IATRY [facility] Feb 16, 2025 10:00 AM AMBULATORY - [facility]IATRY [facility] Feb 16, 2025 10:00 AM AMBULATORY - NONE [facility] March 23, 2025 12:30 PM AMBULATORY - [facility]IATRY [facility] Encounter Notes: All associated encounter notes This section contains the clinical notes associated to the Encounter. Date/Time Encounter Note(s) Provider Source Nov 19, 2024 01:00 PM CAREGIVER CERTIFIC ATE: LOCAL TITLE: [facility] CAREGIVER HEALTH AND WELLBEING COACHING STANDARD TITLE: CAREGIVER CERTIFICATE DATE OF NOTE: NOV 19, 2024@13:00 ENTRY DATE: NOV 19, 2024@13:56:04 AUTHOR: ZACHARIAH LINDO COSIGNER: URGENCY: STATUS: COMPLETED Caregiver Health & Wellbeing Coaching As a caregiver participant in the Program of Comprehensive Assistance for Family Caregivers (PCAFC) or the Program of General Caregiver Support Services (PGCSS), this caregiver is participating in Caregiver Health and Wellbeing Coaching. This coaching is intended to assist caregivers in improving their own health and well-being. This coaching is provided by a Caregiver Support Program staff member who has completed Caregiver Support Program's Caregiver Health and Wellbeing Coaching training. This visit was conducted via [employer] Video Connect. CAPS-Lock C: Consent: and Caregiver/Caregiver Applicant verbally consented to the video visit. A: Address: Current location (her home address in [place] [place]) was verified by [place] and Caregiver/Caregiver Applicant. P: Phone Numbers: Back-up/emergency phone number ( ) was verified by and Caregiver/Caregiver Applicant. S: Survey: and Caregiver/Caregiver Applicant were in a secure, private area for the visit. They confirmed that her granddaughter and the were in the home but reports feeling able to speak openly. This mortgage loan underwriter locked the Virtual Medical Room after participant(s) joined the meeting. Identified Caregiver with full name. Introductory Session Introduced Caregiver Health and Wellbeing Coaching and reviewed roles and responsibilities Provided Personal Health Inventory (PHI) to the caregiver Date of next session: 12/03/2024 Additional Information: completed PHP together in session PERSONAL HEALTH PLAN Areas of My Personal Health Plan addressed today What really matters to the caregiver. [place], Aspiration, Purpose (MAP). CG reports that she desires to have a long life that has quality. She is concerned about her financial health, physical health, confidence, and independence. HALF-WAY GOALS No previous goal New goal(s): The CG will develop a goal in the first session of [facility] as she and the CSP SW (process coach) review her aspects of health along with her MAP. STRENGTHS CG reports that she is already making changes that are in line with her values in several of the aspects of health CHALLENGES The CG reports that she lacks cofidence and motivation due to feeling disappointed when unexpected changes occur. She also identified that practical matters such as the 's care needs and constant presence in the home make it difficult for her to accomplish tasks within the home. Building Blocks of Health and Well-being Ratings (Current/Future) Moving the Body- 3/5 Recharge- 3/4 Food and Drink- 3/4 Personal Development- 2/5 Relationships- 12/30 Spirit- 3/4 Surroundings- 2/5 Power of the Mind- 3/4 Professional Care- 5 No additional assessments were completed at this time. /abimael/ TEMITOPE [place], HOT WALKER Chief Pilot, Caregiver Support Program Signed: 11/19/2024 14:22 ZACHARIAH LINDO [facility]
--- OUTSIDE RECORDS SUMMARY | 2025-02-11 09:45 | XMS_ITS | Referral Summary ---
Author Organization [facility] [address] Address [address] [place] [address] Care Team Providers Care Fluxer Name Role Phone Gerald De La Cruz MD Primary Care Provider Encounters Date Type Department Care Team Description 01/07/2025 Telephone [facility] Medical [facility] Primary Care at [address] [phone] Gerald De La Cruz MD Med Refill 01/05/2025 Results Follow-Up [facility] Medical [facility] Primary Care at [address] [address] Gerald De La Cruz MD 01/04/2025 Telephone [facility] Primary Care at [address] [address] Minerva Thompson MA 01/04/2025 10:26 AM CDT - 01/04/2025 11:59 PM CDT Hospital Encounter [address] [address] Primary hypertension; Vitamin D deficiency Discharge Disposition: Discharge to home or self care 01/04/2025 10:30 AM CDT Lab [facility] Outpatient Lab at [address] [address] Mixed hyperlipidemia (Primary Dx); Hypertension 01/04/2025 9:45 AM CDT Office Visit [facility] Primary Care at [address] [phone] Gerald De La Cruz MD Mixed hyperlipidemia (Primary Dx); Primary hypertension; Vitamin D deficiency; Pre-diabetes; Breast cancer screening by mammogram; Screening for osteoporosis; Asymptomatic menopausal state; Gastroesophageal reflux disease without esophagitis; Chronic gastritis without bleeding, unspecified gastritis type; Encounter for screening mammogram for malignant neoplasm of breast 12/11/2024 Nurse Triage [facility] Primary Care at [address] [address] Gerald De La Cruz MD 12/11/2024 Telephone [facility] Primary Care at [address] [address] Gerald De La Cruz MD from Last 3 Months Allergies No known active allergies Medications venlafaxine [...] had a colonoscopy few years ago at [facility]. She takes Levsin as needed [...] CT Assessment & Plan (12/04/2020 8:21 PM ENTOMOLOGY PROFESSOR): Check CXR Recommend referral to pulmonary Medicare [...] vaccinations. Labs as ordered Look into available data lead in the area. Hopefully will be able to set up with a [facility] provider but there may be some outside the group as well Reviewed medications, medical history. Continuing the current regimen for now Having a slide developer eventually will probably be a good move as well. Continue p.r.n. Levsin and omeprazole. If diverticulitis symptoms start to recur, it would be best to follow-up sooner rather than later. If we catch it early, we may be able to avoid any kind of hospital stay, surgical risk etc.. Assessment & Plan (10/09/2020 9:10 AM ENTOMOLOGY PROFESSOR): Encouraged healthy lifestyle, good nutrition and exercise. Encouraged Calcium and Vitamin D and weight bearing exercise for bone health. Reviewed immunizations. Reviewed age appropirate screenings. Medicare Wellness Documentation is completed within the chart Breast cancer screening by mammogram 10/09/2020 Assessment & Plan (10/09/2020 9:10 AM ENTOMOLOGY PROFESSOR): Mammogram order provided Myopia 10/08/2020 Combined forms of age-related cataract 0 Presbyopia 10/08/2020 BMI 30.0-30.9,adult 08/15/2020 Assessment & Plan (09/30/2020 11:53 AM ENTOMOLOGY PROFESSOR): Obesity is unchanged. Discussed the patient's BMI. [...] daily Assessment & Plan (10/09/2020 9:09 AM ENTOMOLOGY PROFESSOR): Continue PPI Assessment & Plan (04/23/2020 8:35 PM CDT): Discussed GERD at length including anatomy, behavioral changes (raise HOB, meal timings), dietary changes and medication options. Reviewed risks, benefits alternatives, side effects and proper use. Followup if sxs worsen or has hematochezia or hematemeis. Start pPI Slow transit constipation 04/23/2020 Assessment & Plan (10/09/2020 9:09 AM ENTOMOLOGY PROFESSOR): Increase fiber, exercise, water. Add stool softner.bid If sxs persist, may use Miralax. Assessment & Plan (04/23/2020 8:35 PM CDT): Increase fiber, exercise, water and colace. Reviewed warning signs of an acute abdomen Obesity (BMI 30-39.9) 04/09/2019 Assessment & Plan (10/10/2023 1:46 PM ENTOMOLOGY PROFESSOR): BMI 30.4 Discussed diet modifications including increasing [...] up. Assessment & Plan (09/30/2020 11:53 AM ENTOMOLOGY PROFESSOR): Obesity is unchanged. Discussed the patient's BMI. [...] provided. Assessment & Plan (09/04/2019 9:51 PM ENTOMOLOGY PROFESSOR): Obesity is unchanged. Discussed the patient's BMI. [...] 04/09/2019 Assessment & Plan (10/09/2020 9:10 AM ENTOMOLOGY PROFESSOR): Pre-diabetes is a precursor to Dm. Stressed importance of working on diet (decrease your simple sugars and one carbohydrate with each meal) and increase you exercise to achieve weight loss and this will help prevent you from progressing to diabetes. Assessment & Plan (09/04/2019 9:54 PM ENTOMOLOGY PROFESSOR): This is a significant, separately identifiable problem [...] physical Assessment & Plan (10/09/2020 9:10 AM ENTOMOLOGY PROFESSOR): Encouraged patient to follow fat/low chol diet like the Mediterranean diet. Increase good fats in the diet. Increase exercise. Monitor labs as needed. Assessment & Plan (09/04/2019 9:52 PM ENTOMOLOGY PROFESSOR): Encouraged patient to continue low fat/low chol [...] psychiatrist Assessment & Plan (10/09/2020 9:11 AM ENTOMOLOGY PROFESSOR): Managed by her psychiatrist Menopause 01/30/2017 Mixed [...] too. Assessment & Plan (09/04/2019 9:54 PM ENTOMOLOGY PROFESSOR): This is a significant, separately identifiable problem [...] physical Assessment & Plan (11/14/2020 10:06 AM ENTOMOLOGY PROFESSOR): Readings are high at home but unsure if cuff is accurate. She will come in tomorrow to calibrate the cuff before adjusting the medication. Assessment & Plan (10/09/2020 9:12 AM ENTOMOLOGY PROFESSOR): This is a significant, separately identifiable problem [...] readings. Assessment & Plan (09/04/2019 9:51 PM ENTOMOLOGY PROFESSOR): Bp is stable/in acceptable range for any [...] 10/09/202004/02 Assessment & Plan (10/09/2020 9:10 AM ENTOMOLOGY PROFESSOR): Refer for screening colonoscopy Hearing loss of left ear due to cerumen impaction 09/30/2020 04/02/2024 Assessment & Plan (10/09/2020 9:12 AM ENTOMOLOGY PROFESSOR): This is a significant, separately identifiable problem that was evaluated and managed on the same day as the wellness exam Start otc DeBrox as plug appears very hard. Followup in a few weeks to wash ears in the office is sxs persist. Chronic pain of right thumb 08/15/2020 04/02/2024 Assessment & Plan (09/25/2020 9:38 PM ENTOMOLOGY PROFESSOR): May use NSAID and ice but recommend referral for definitive treatment. Will hold off on xrays and defer to Ortho since there is no known injury. Need for immunization against influenza 08/15/2020 10/09/2020 Assessment & Plan (09/25/2020 9:39 PM ENTOMOLOGY PROFESSOR): Updated in office today Generalized abdominal pain 04/23/2020 0 04/02/2024 Assessment & Plan (04/23/2020 8:33 PM CDT): Sxs of GERD and constipation. Will focus on these dx and if sxs persist, may need additional workup Gastritis 01/24/2020 04/02/2024 Assessment & Plan (05/01/2022 11:23 AM CDT): She reportedly had endoscopy at [facility] that revealed gastritis . Takes PPI and [...] 01/24/2020 Assessment & Plan (09/04/2019 9:52 PM ENTOMOLOGY PROFESSOR): Mammogram order provided Medicare annual wellness visit, subsequent 09/04/2019 01/24/2020 Assessment & Plan (09/04/2019 9:52 PM ENTOMOLOGY PROFESSOR): Encouraged healthy lifestyle, good nutrition and exercise. Encouraged Calcium and Vitamin D and weight bearing exercise for bone health. Reviewed immunizations Reviewed age appropirate screenings. Documenation on the chart Left foot pain 04/11/2019 04/02/2024 Assessment & Plan (04/11/2019 3:16 PM CDT): Foot pain ??? Neuroma. Send to Service Manager for further evaluation. RUQ abdominal pain 04/11/2019 Assessment & Plan (09/04/2019 9:51 PM ENTOMOLOGY PROFESSOR): This is a significant, separately identifiable problem [...] 20 Assessment & Plan (09/04/2019 9:52 PM ENTOMOLOGY PROFESSOR): Obesity is unchanged. Discussed the patient's BMI. [...] 04/02/2024 Overview (08/29/2020): unknown irritant. Referred to [facility] Asthma 03/13/2014 11/14/2020 Overview (01/31/2017): Asthma Assessment & Plan (04/11/2019 3:18 PM CDT): Immunizations Immunization Administration Dates Next Due Influenza, Quadrivalent, Hig h Dose, Preservative Free, Intrr 10/10/2023,09/04/2022 Influenza, Quadrivalent, Spl it, Intramuscular 07/27/2020 Influenza, Quadrivalent, Spl it, Preservative Free, Intramuscular 08/15/2020,09/04/2019,07/29/2018,08/23 Influenza, Trivalent, High D ose, Split, Preservative Free, Intramuscular 08/06/2024 Influenza, Trivalent, IM (MDV) 08/15/2016 Influenza, Unspecified 10/28/2022(Deferr ed: Patient Refused),10/28/2021(Deferred: Patient Refused),07/19/2021,06/29/2021, 018 Pneumococcal Conjugate Pcv20 07/07/2024 Td, adsorbed 10/28/2005 Tdap 05/09/2015 Social History Tobacco Use Types Packs/Day Years [...] on file Legal Sex Female 8:42 AM ENTOMOLOGY PROFESSOR Gender Identity Female 08/28/2019 4:50 PM CDT Sexual Orientation Choose not to disclose 2018 4:50 PM CDT Last Filed Vital Signs Vital Sign Reading [...] 01/04/2025 9:57 AM CDT Plan of Treatment Not on file Procedures Procedure Name Priority Date/Time Associated Diagnosis [...] of Race in Diagnosing Kidney Disease, JASN 202). The CKD-EPI equation should not be used for patients with unstable renal function and has not been validated in children and those over 70. Current interpretive data was last reviewed 2021. Blood 01/04/2025 10:2 6 AM CDT 01/04/2025 3:22 PM CDT us Gerald De La Cruz MD LAB BLOOD ORDERABLES Final Result [facility] [id number] Department [place] [address] * Differential, auto (01/04/2025 10:26 AM CDT) Neutrophil abs 5.3 1.5 - 6.5 K/cumm Imm gran abs 0.0 0.0 - 0.1 K/cumm [facility] Lymphocyte abs 1.8 0.8 - 3.3 K/cumm [facility] Monocyte abs 0.7 0.2 - 0.8 K/cumm [facility] Eosinophil abs 0.0 0.0 - 0.5 K/cumm [facility] Basophil abs 0.1 0.0 - 0.1 K/cumm [facility] Neutrophil pct 67.1 % [facility] Comment: Interpretive Data Percent cell count reference ranges are not reported, since discordance with absolute values may lead to misinterpretation of CBC data. Current Interpretive Data was last revised on 2018. Imm gran pct 0.3 % [facility] Comment: Interpretive Data Percent cell count reference ranges are not reported, since discordance with absolute values may lead to misinterpretation of CBC data. Current Interpretive Data was last revised on 2018. Lymphocyte pct 23.2 % [facility] Comment: Interpretive Data Percent cell count reference ranges are not reported, since discordance with absolute values may lead to misinterpretation of CBC data. Current Interpretive Data was last revised on 2018. Monocyte pct 8.5 % [facility] Comment: Interpretive Data Percent cell count reference ranges are not reported, since discordance with absolute values may lead to misinterpretation of CBC data. Current Interpretive Data was last revised on 2018. Eosinophil pct 0.1 % [facility] Comment: Interpretive Data Percent cell count reference ranges are not reported, since discordance with absolute values may lead to misinterpretation of CBC data. Current Interpretive Data was last revised on 2018. Basophil pct 0.8 % [facility] Comment: Interpretive Data Percent cell count reference ranges are not reported, since discordance with absolute values may lead to misinterpretation of CBC data. Current Interpretive Data was last revised on 2018. Blood 01/04/2025 10:2 6 AM CDT 01/04/2025 3:19 PM CDT Gerald De La Cruz MD LAB BLOOD ORDERABLES Final Result Performing Organization Address [facility] Co de Phone Number ALHAJI LLOYD [address] [employer] [place], [place] [id number] * Thyroid Function [place] (01/04/2025 10:26 AM CDT) TSH 0.55 0.30 - 4.20 mcIUnit/mL Blood 01/04/2025 10:2 6 AM CDT 01/04/2025 3:19 PM CDT Gerald De La Cruz MD LAB BLOOD ORDERABLES Final Result Performing Organization Address [facility] Co de Phone Number PEYTONJUSTIN LLOYD [address] [address] [employer] [place], [place] [id number] * (ABNORMAL) CBC with auto differential (01/04/2025 10:26 AM CDT) WBC 7.9 3.8 - 9.9 K/cumm Hgb 12.9 11.9 - 15.5 g/dL [facility] Hct 40.2 35.6 - 45.5 % [facility] Plt 344 150 - 400 K/cumm [facility] MPV 9.8 9.1 - 12.3 fL [facility] RBC 4.33 3.90 - 5.20 M/cumm [facility] MCV 92.8 81.3 - 96.4 fL [facility] MCH 29.8 27.1 - 33.3 pg ALHAJI MCHC 32.1(L) 32.3 - 35.7 g/dL [facility] RDW CV 12.8 11.1 - 14.9 % ALHAJI CH RDW SD 43.8 35.7 - 48.1 fL [facility] NRBC abs 0.00 0.00 - 0.01 K/cumm ALHAJI Blood 01/04/2025 10:2 6 AM CDT 01/04/2025 3:19 PM CDT us Gerald De La Cruz MD LAB BLOOD ORDERABLES Final Result ALHAJI [id number] [address] Department [place] [address] * Lipid panel (01/04/2025 10:26 AM CDT) [...] revised on 2018. Triglycerides 83 <=149 mg/dL [facility] Comment: Interpretive Data Ages < or = [...] on 2018. HDL 54 >=40 mg/dL ALHAJI LLOYD Comment: Interpretive Data Ages < or = [...] 2018. LDL, calculated 48 <=129 mg/dL ALHAJI LLOYD Comment: Interpretive Data Ages < or = 19 years Acceptable: <110 mg/dL Borderline high: 110-129 mg/dL High: >or= 130 mg/dL Ages > or = 20 years Optimal: <100 mg/dL Near optimal: 100-129 mg/dL Borderline high: 130-159 mg/dL High: >160 mg/dL Calculated using the Augusto LDL-C estimating equation. This equation was implemented on 2024. Prior to this date LDL-C was estimated using the Friedewald equation. Literature References: 1. Expert Panel on Integrated Guidelines for Cardiovascular Health and Risk Reduction in Children and Adolescents. Pediatrics 2011;128:S213 2. NCEP Expert Panel. Circulation 2004;110:227 3. Augusto Shultz et al. ANGIE Cardiol. 2019February 25;5(5):540-548. doi: 10.1001/jamacardio.2020.0013 Current Interpretive Data was last revised on 2024. Non-HDL Cholesterol 64 mg/dL ALHAJI LLOYD Comment: Interpretive Data Ages < or = [...] revised on 2018. Chol/HDL ratio 2 [facility] Blood 01/04/2025 10:2 6 AM CDT 01/04/2025 3:19 PM CDT Gerald De La Cruz MD LAB [place] [id number] [address] Department [place] [address] * Comprehensive metabolic panel (01/04/2025 10:26 AM CDT) Sodium 136 135 - 145 mmol/L Potassium, pl 4.3 3.3 - 4.9 mmol/L [facility] Chloride 97 97 - 110 mmol/L [facility] CO2 25 22 - 32 mmol/L [facility] Anion gap 14 2 - 15 mmol/L [facility] BUN 10 6 - 25 mg/dL [facility] Creatinine 0.75 0.60 - 1.10 mg/dL [facility] Glucose 127 70 - 199 mg/dL [facility] Comment: Interpretive Data Fasting glucose >/= 126 [...] classification and Diagnosis of Diabetes Diabetes Care 202; 46: S19-S40. Current interpretive data was last [...] BLOOD ORDERABLES Final Result Performing Organization Address [facility] Phone Number ALHAJI LLOYD [address] [address] Department [place] [address] * Hepatitis C antibody (03/15/2022 11:07 AM CDT) Hep C Ab Nonreactive Nonreactive ALHAJI LLOYD Comment: Interpretive Data Nonreactive: Antibodies to HCV [...] GENERAL ORDERABLES Final Result Performing Organization Address [facility] de Phone Number ALHAJI LLOYD [address] [address] Department [place] [address] * Colonoscopy (01/11/2021) Anatomical Region Laterality Modality Other Narrative 01/11/2021 Normal. Repeat in 10 years Historical Provider ENDOSCOPY PROCEDURES Ines l Result from Last 3 Months or Most Recently Relevant to Health Maintenance Insurance [employer] [facility] MEDICARE ADVANTAGE [facility] MDCR HMO REF FOR LIFE UHC MEDICARE ADVANTAGE Care Teams Fluxer Relationship Specialty Start Date End Date Gerald De La Cruz MD [facility] [place] [address] PCP - General Family Medicine 01/25/22
--- OUTSIDE RECORDS SUMMARY | 2025-02-11 09:45 | XMS_ITS | Encounter Summary ---
Author Name [facility] [place] [facility] Address [address] [place] [address] Care Team Providers Care [facility] Director Name Role Phone WALDEMAR PRUITT Primary Care [...] [facility] (WNR) MEDICARE ADVANTAGE MCR ([facility]) Oct 28, 2023 [id number] [phone] MARINO BOOTH PATIENT -FO R-LIFE [place] RE FOR LIFE [facility] Jul 28, 2021 FOR LIFE [id number] MARINO BOOTH PATIENT -FO R-LIFE [place]ICA RE FOR LIFE [facility] Jul 28, 2021 FOR LIFE [id number] [phone] KIM BOOTH HARD SPOUSE [facility] ([facility]) MEDICARE ADVANTAGE MCR ([facility]) Jul 28, 2021 [id number] MARINO BOOTH PATIENT Selected Encounter This section includes the information on record at [place] for the Encounter. Date/Time Encounter Type Encounter Description Reason Provider Source Sep 15, 2024 10:00 AM PSYTX W PT 45 MINUTES CAREGIVER SUPPORT PROGRAM ICD-10-CM F33.0 Major depressive disorder, recurrent, mild COLABELLA,MYA A IHE Encounter Template Text not used by [place] Assessments - Encounter Diagnoses This section includes the primary and secondary diagnoses documented for the Encounter. Date/Time Primary/Secondary Diagnosis Diagnosis Name Provider Source Sep 15, 2024 10:53 AM PRIMARY Major depressive disorder, recurrent, mild COLABELLA,MYA A [facility] Sep 15, 2024 10:53 AM SECONDARY Anxiety disorder, unspecified COLABELLA,MYA A [facility] Plan of Treatment: Future Appointments (+ 6 months) and Future Tests (+/- 45 days) The Plan of Treatment section includes future care activities for the patient from all [place] treatmentfacilities. This section includes future appointments and future orders which are active, pending or scheduled. Future Appointments This section includes appointments that were scheduled to occur 6 months from the date of the Encounter, up to a maximum of 20 appointments. The data comes from all [place] treatment facilities. Appointment Date/Time Appointment Type Appointme nt Facility Name Oct 08, 2024 11:00 AM AMBULATORY - NONE [facility] Oct 08, 2024 11:00 AM AMBULATORY - NONE [facility] Nov 05, 2024 12:00 PM AMBULATORY - NONE [facility] Nov 05, 2024 12:00 PM AMBULATORY - PSYCHIATRY [facility] Nov 09, 2024 10:00 AM AMBULATORY - MEDICINE [facility] Nov 17, 2024 10:00 AM AMBULATORY - NONE [facility] Nov 17, 2024 10:00 AM AMBULATORY - PSYCHIATRY [facility] Nov 23, 2024 02:30 PM AMBULATORY - PSYCHIATRY [facility] Dec 07, 2024 01:00 PM AMBULATORY - NONE [facility] Dec 07, 2024 01:00 PM AMBULATORY - PSYCHIATRY [facility] Dec 22, 2024 01:00 PM AMBULATORY - NONE [facility] Dec 22, 2024 01:00 PM AMBULATORY - PSYCHIATRY [facility] Jan 07, 2025 10:00 AM AMBULATORY - NONE [facility] Jan 07, 2025 10:00 AM AMBULATORY - PSYCHIATRY [facility] Jan 11, 2025 01:30 PM AMBULATORY - NONE [facility] Jan 11, 2025 01:30 PM AMBULATORY - PSYCHIATRY [facility] Jan 21, 2025 10:00 AM AMBULATORY - NONE [facility] Jan 21, 2025 10:00 AM AMBULATORY - PSYCHIATRY [facility] Jan 26, 2025 02:00 PM AMBULATORY - NONE [facility] Jan 26, 2025 02:00 PM AMBULATORY - PSYCHIATRY [facility] Encounter Notes: All associated encounter notes This section contains the clinical notes associated to the Encounter. Date/Time Encounter Note(s) Provider Source Sep 15, 2024 08:50 AM CAREGIVER CERTIFIC ATE: LOCAL TITLE: [facility] INDIVIDUAL PSYCHOTHERAPY NOTE STANDARD TITLE: CAREGIVER CERTIFICATE DATE OF NOTE: SEP 15, 2024@08:50 ENTRY DATE: SEP 15, 2024@08:51:06 AUTHOR: MYA NUNEZ EXP COSIGNER: URGENCY: STATUS: COMPLETED The telehealth encounter was conducted with the in the ([facility]) system today . Please see [employer] for progress note and patient orders. /abimael/ MYA NUENZ Signed: 09/15/2024 10:53 MYA NUNEZ [facility]
--- OUTSIDE RECORDS SUMMARY | 2025-02-11 09:45 | XMS_ITS | Encounter Summary ---
Author Name [facility] [place] Organization [place] Address [address] [place] [address] Care Team Providers Care Sorting Machine Attendant Name Role Phone WALDEMAR PRUITT Primary Care [...] [facility] Oct 28, 2023 [id number] [phone] MARINO BOOTH PATIENT -FO R-LIFE [facility]ICA RE FOR LIFE [facility] Jul 28, 2021 FOR LIFE [id number] MARINO BOOTH PATIENT -FO R-LIFE TRICA RE FOR LIFE [facility] Jul 28, 2021 FOR LIFE [id number] [phone] KIM BOOTH HARD SPOUSE [facility] ([facility] MEDICARE ADVANTAGE MCR ([facility]) Jul 28, 2021 [id number] MARINO BOOTH PATIENT Selected Encounter This section includes the information on record at [place] for the Encounter. Date/Time Encounter Type Encounter Description Reason Provider Source Jan 21, 2025 10:00 AM PSYTX W PT 45 MINUTES CAREGIVER SUPPORT PROGRAM ICD-10-CM F34.1 Dysthymic disorder RICHARD GRIDER [facility] Encounter Template Text not used by [place] Assessments - Encounter Diagnoses This section includes the primary and secondary diagnoses documented for the Encounter. Date/Time Primary/Secondary Diagnosis Diagnosis Name Provider Source Jan 21, 2025 11:04 AM PRIMARY Dysthymic disorder CHEORICHARD Ayesha [facility] Jan 21, 2025 11:04 AM SECONDARY Anxiety disorder, unspecified RICHARD GRIDER Ayesha [facility] Jan 21, 2025 11:04 AM SECONDARY Dependent relative needing care at home RICHARD GRIDER [facility] Jan 21, 2025 11:04 AM SECONDARY Major depressive disorder, recurrent, moderate RICHARD GRIDER Ayesha [facility] Plan of Treatment: Future Appointments (+ 6 months) and Future Tests (+/- 45 days) The Plan of Treatment section includes future care activities for the patient from all [place] treatmentfacilities. This section includes future appointments and future orders which are active, pending or scheduled. Future Appointments This section includes appointments that were scheduled to occur 6 months from the date of the Encounter, up to a maximum of 20 appointments. The data comes from all [place] treatment facilities. Appointment Date/Time Appointment Type Appointme nt Facility Name Jan 26, 2025 02:00 PM AMBULATORY - NONE [facility] Jan 26, 2025 02:00 PM AMBULATORY - PSYCHIATRY [facility] Feb 16, 2025 10:00 AM AMBULATORY - PSYCHIATRY [facility] Feb 16, 2025 10:00 AM [facility] March 23, 2025 12:30 PM AMBULATORY - PS[facility]CHIATRY [facility] Encounter Notes: All associated encounter notes This section contains the clinical notes associated to the Encounter. Date/Time Encounter Note(s) Provider Source Jan 21, 2025 09:59 AM CAREGIVER CERTIFIC ATE: LOCAL TITLE: VPPC INDIVIDUAL PSYCHOTHERAPY NOTE STANDARD TITLE: CAREGIVER CERTIFICATE DATE OF NOTE: JAN 21, 2025@09:59 ENTRY DATE: JAN 21, 2025@09:59:13 AUTHOR: RICHARD GRIDER EXP COSIGNER: URGENCY: STATUS: COMPLETED The telehealth encounter was conducted with the caregiver in [address] system today. Please see Joint Legacy Viewer for progress note, clinical reminders, and patient orders. - Telehealth Help Desk or [phone] /es/ RICHARD GRIDER PSYCHOLOGIST Signed: 01/21/2025 11:38 RICHARD GRIDER [facility]
--- OUTSIDE RECORDS SUMMARY | 2025-02-11 09:45 | XMS_ITS | Encounter Summary ---
Author Name [place] Organization [place] Address [address] [place] [address] Care Team Providers Care Medicare Compliance Auditor Name Role Phone WALDEMAR PRUITT Primary Care [...] [place] [facility] (WNR) MEDICARE ADVANTAGE MCR ([facility]) Oct 28, 2023 [id number] [phone] MARINO BOOTH PATIENT -FO R-LIFE TRICA RE FOR LIFE [facility] Jul 28, 2021 FOR LIFE [id number] MARINO BOOTH PATIENT -FO R-LIFE TRICA RE FOR LIFE [facility] Jul 28, 2021 FOR LIFE [id number] [phone]ARD [address] [facility] ([facility]) MEDICARE ADVANTAGE MCR ([facility]) Jul 28, 2021 [id number] MARINO BOOTH PATIENT Selected Encounter This section includes the information on record at [place] for the Encounter. Date/Time Encounter Type Encounter Description Reason Pro vider Source Nov 05, 2024 12:00 PM Outpatient Encounter ADMIN PAT ACTIVTIES (MASNONCT) IHE Encounter Template Text not used by [place] Plan of Treatment: Future Appointments (+ 6 months) and Future Tests (+/- 45 days) The Plan of Treatment section includes future care activities for the patient [facility] [place] [facility] This section includes future appointments and future orders which are active, pending or scheduled. Future Appointments This section includes appointments that were scheduled to occur 6 months from the date of the Encounter, up to a maximum of 20 appointments. The data comes from all [place] treatment facilities. Appointment Date/Time Appointment Type Appointme nt Facility Name Nov 09, 2024 10:00 AM AMBULATORY - MEDICINE [facility] Nov 17, 2024 10:00 AM AMBULATORY - NONE [facility] Nov 17, 2024 10:00 AM AM[facility]ATORY [facility] Nov 23, 2024 02:30 PM AMBULATORY - PSYCHIATRY [facility] Dec 07, 2024 01:00 PM AMBULATORY - NONE [facility] Dec 07, 2024 01:00 PM AMBULATORY - [facility]AT[facility] Dec 22, 2024 01:00 PM AMBULATORY - NONE [facility] Dec 22, 2024 01:00 PM AMBULATORY - [facility]IATRY [facility] Jan 07, 2025 10:00 AM AMBULATORY - NONE [facility] Jan 07, 2025 10:00 AM AMBULATORY - [facility]ATRY [facility] Jan 11, 2025 01:30 PM AMBULATORY - NONE [facility] Jan 11, 2025 01:30 PM AMBULATORY - [facility]ATRY [facility] Jan 21, 2025 10:00 AM AMBULATORY - NONE [facility] Jan 21, 2025 10:00 AM AMBULATORY - [facility]AT[facility] Jan 26, 2025 02:00 PM AMBULATORY - NONE [facility] Jan 26, 2025 02:00 PM AMBULATORY - [facility]AT[facility] Feb 16, 2025 10:00 AM AMBULATORY - [facility] Feb 16, 2025 10:00 AM AMBULATORY - NONE [facility] March 23, 2025 12:30 PM AMBULATORY - PSYCHIATRY [facility] Encounter Notes: All associated encounter notes This section contains the clinical notes associated to the Encounter. Date/Time Encounter Note(s) Provider Source Nov 05, 2024 12:03 PM CAREGIVER CERTIFIC ATE: LOCAL TITLE: VPPC INDIVIDUAL PSYCHOTHERAPY NOTE STANDARD TITLE: CAREGIVER CERTIFICATE DATE OF NOTE: NOV 05, 2024@12:03 ENTRY DATE: NOV 05, 2024@12:03:08 AUTHOR: RICHARD GRIDER COSIGNER: URGENCY: STATUS: COMPLETED [facility] - FOLLOW UP PSYCHOLOGY VISIT VIRTUAL PSYCHOTHERAPY PROGRAM FOR CAREGIVERS (VPPC) Patient identity was verified. Encounter was conducted via Telehealth Modality. Verbal informed consent was obtained from the Caregiver at the time of the encounter. CAPS-Lock procedure was completed to secure the virtual medical room. TYPE OF ENCOUNTER: VVC VISIT Psychotherapy LENGTH OF ENCOUNTER: 60 minutes DATE: Oct TREATMENT GOAL(S): To identify strategies for improving connection with self and others and increase well-being. STRENGTHS: The CG appears to be amiable and motivated for treatment at this time. CONTENT/ISSUES ADDRESSED: The CG presented to this session on time. As it was this credit underwriter's first session with the client after a transfer of care from her previous provider, the session was spent reviewing psychosocial history, developing rapport, and revising treatment goals. The CG reported she has been feeling an increase in caregiver burden due to having less respite care around the holidays and recent winter weather. She reports her Jose has been more behaviorally resistant in the mornings and leaving the house has been a challenge. She expressed feeling isolated much of the time and was tearful describing her wish for closer relationships with her adult daughters, Rosio and Nina. The CG reports she formed a coffee social group that meets every Saturday, and although she appreciates the social support this provides, she does not yet have close 1:1 relationships with any of her friends there. She is grieving the loss of her group co-collections attorney, Buddy, who relatively suddenly in July. The CG briefly shared that she kathe with her own health issues, including abdominal issues and ear and throat dysfunction. She has been waiting several months for a new PCP. She also recently adopted a 2yo dog, Gabi, in addition to her nearly-9yo dog, Luna, and two cats. INTERVENTIONS UTILIZED: Mindfulness-Based Cognitive Therapy (MBCT). Moving Picture Producer guided the client's self-exploration and encouraged space for reflection and insight. Explored interpersonal dynamics in family relationships. Normalized stressors and reflected strengths. Elicited coping strategies. RESPONSE TO INTERVENTION: No adverse reactions. The client was engaged and collaborative throughout this session. MENTAL STATUS EXAMINATION WITH SAFETY ASSESSMENT/PLANNING: -Orientation: person, place, time -Mood was dysthymic -Affect: full; congruent with stated mood and [...] plans and commitments [x] Personal, Cultural, or Cheondoism Beliefs for Self Preservation ASSESSMENT OF SUICIDE RISK: Low ASSESSMENT OF HOMICIDE RISK: Low IMPRESSION (DSM5 Criteria): Persistent Depressive Disorder (dysthymia; 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 RTC on . 11/17 @ 1000. /es/ RICHARD GRIDER PSYCHOLOGIST Signed: 11/05/2024 15:38 RICHARD GRIDER [facility]
--- OUTSIDE RECORDS SUMMARY | 2025-02-11 09:45 | XMS_ITS | Encounter Summary ---
Author Name Department of Veter[place] Organization Department of [place] Address [address] [place] [address] Care Team Providers Care Hall Tender Name Role Phone WALDEMAR PRUITT Primary Care Provider Unavailabl e Insurance Providers: All historical and current [...] [place] [facility] (WNR) MEDICARE ADVANTAGE MCR ([facility] Oct 28, 2023 [id number] [phone] MARINO BOOTH PATIENT -FO R-LIFE TRICA RE FOR LIFE [facility] Jul 28, 2021 FOR LIFE [id number] MARINO BOOTH PATIENT -FO R-LIFE TRICA RE FOR LIFE [facility] Jul 28, 2021 FOR LIFE [id number] [phone] KIM BOOTH HARD SPOUSE [facility] ([facility] MEDICARE ADVANTAGE MCR ([facility]) Jul 28, 2021 [id number] MARINO BOOTH PATIENT Selected Encounter This section includes the information on record at [place] for the Encounter. Date/Time Encounter Type Encounter Description Reason Provider Source Dec 03, 2024 12:00 PM [facility] CAREGIVER SUPPORT PROGRAM ICD-10-CM Z63.79 Other stressful life events affecting family and household ZACHARIAH LINDO [facility] Encounter Template Text not used by [place] Assessments - Encounter Diagnoses This section includes the primary and secondary diagnoses documented for the Encounter. Date/Time Primary/Secondary Diagnosis Diagnosis Name Provider Source Dec 03, 2024 01:15 PM PRIMARY Other stressful life events affecting family and household ZACHARIAH LINDO [facility] Plan of Treatment: Future Appointments [...] Appointment Type Appointme nt Facility Name Dec 07, 2024 01:00 PM [facility]ULAT[facility] NONE [facility] Dec 07, 2024 01:00 PM AMBULATORY - [facility] Dec 22, 2024 01:00 PM AM[facility]ULAT[facility] NONE [facility] Dec 22, 2024 01:00 PM AMBULATORY - [facility]IATRY [facility] Jan 07, 2025 10:00 AM AM[facility]ULAT[facility] - NONE [facility] Jan 07, 2025 10:00 AM AMBULATORY - [facility]AT[facility] Jan 11, 2025 01:30 PM AM[facility]ULAT[facility] - NONE [facility] Jan 11, 2025 01:30 PM AMBULATORY - [facility]ATRY [facility] Jan 21, 2025 10:00 AM AMBULATORY - NONE [facility] Jan 21, 2025 10:00 AM AMBULATORY - [facility]ATRY [facility] Jan 26, 2025 02:00 PM AM[facility]ULATORY - NONE [facility] Jan 26, 2025 02:00 PM AMBULATORY - [facility]AT[facility] Feb 16, 2025 10:00 AM AMBULATORY - PS[facility]CHIATRY [facility] Feb 16, 2025 10:00 AM AMBULATORY - NONE [facility] March 23, 2025 12:30 PM AMBULATORY - PSYCHIATRY [facility] Encounter Notes: All associated encounter notes This section contains the clinical notes associated to the Encounter. Date/Time Encounter Note(s) Provider Source Dec 03, 2024 12:00 PM CAREGIVER CERTIFIC ATE: LOCAL TITLE: [facility] CAREGIVER HEALTH AND WELLBEING COACHING STANDARD TITLE: CAREGIVER CERTIFICATE DATE OF NOTE: DEC 03, 2024@12:00 ENTRY DATE: DEC 03, 2024@13:03:58 AUTHOR: ZACHARIAH LINDO COSIGNER: URGENCY: STATUS: COMPLETED [...] Program's Caregiver Health and Wellbeing Coaching training. Follow Up Session Session number: 1 This visit was conducted via Telehealth/ID Video Connect. CAPS-Lock C: Consent: Caregiver verbally consented to the video visit. A: Address: Current location ([address] [place] [address]) was verified by the CG. P: Phone Numbers: Back-up/emergency phone number ( ) was verified by Caregiver. S: Survey: Caregiver was in a secure, private area for the visit. They confirmed that her young granddaughter was in the home but that she felt secure in speaking with DOLORES LAWS at this time. DOLORES LAWS Locked the visit once both were in the VMR. Duration of visit: Duration: 62 min Purpose of coaching session and topics discussed:* Select all that apply (at least one selection is required) Personal Development Comment: the CG reports an ongoing focus on her current and future financial health Family, Friends, Coworkers Comment: CG discussed familial dynamics between various members and using talents of family members in line with their wishes to provide support Caregiver's self-identified SMART goal (Specific, Measurable, Action-oriented, Realistic, Time-bound): The CG will utilize the [employer] tru through her bank to organize her finances each day after reviewing her bank account which she does already on a daily basis. Action steps: The CG reports that the links to the [employer] tru are on the [employer]'s website and she reports ability to download it. CG will also ask her friends about apps they use to track their personal finances. She will explore these as well in pursuit of finding which best fits her needs and preferences. Time frame to achieve goal: 2 weeks Possible barriers caregiver may encounter while working towards goal: CG identified that the [employer] tru may be difficult to use or not fit her needs or preferences. How caregiver will overcome barriers (identified strengths): CG reports that she will consult with friends and seek other apps that are intended for financial tracking or information storage. No additional assessments were completed at this time. Next Session: 12/18/2024 at 2pm via BLANCA /abimael/ TEMITOPE [place], NATIONAL FLATBED TRUCK DRIVER Senior Java Data Architect, Caregiver Support Program Signed: 12/04/2024 13:09 ZACHARIAH LINDO [facility]
--- OUTSIDE RECORDS SUMMARY | 2025-02-11 09:45 | XMS_ITS | Encounter Summary ---
Author Name Department of [place] Organization [place] Address [address] [place] [address] Care Team Providers Care Test Operator Name Role Phone WALDEMAR PRUITT Primary Care [...] [place] [facility] (WNR) MEDICARE ADVANTAGE MCR ([facility]) Oct 28, 2023 [id number] [phone] MARINO BOOTH PATIENT -FO R-LIFE TRICA RE FOR LIFE [facility] Jul 28, 2021 FOR LIFE [id number] [phone] MARINO BOOTH PATIENT -FO R-LIFE TRICA RE FOR LIFE [facility] Jul 28, 2021 FOR LIFE [id number] [phone] KIM BOOTH HARD SPOUSE [facility] ([facility]) MEDICARE ADVANTAGE MCR ([facility]) Jul 28, 2021 [id number] MARINO BOOTH PATIENT Selected Encounter This section includes the information on record at [place] for the Encounter. Date/Time Encounter Type Encounter Description Reason Pro vider Source Jul 21, 2024 10:30 AM Outpatient Encounter ADMIN PAT ACTIVTIES (MASNONCT) IHE Encounter Template Text not used by [place] Plan of Treatment: Future Appointments (+ 6 months) and Future Tests (+/- 45 days) The Plan of Treatment section includes future care activities for the patient from all [place] [facility]. This section includes future appointments and future orders which are active, pending or scheduled. Future Appointments This section includes appointments that were scheduled to occur 6 months from the date of the Encounter, up to a maximum of 20 appointments. The data comes from all [place] treatment facilities. Appointment Date/Time Appointment Type Appointme nt Facility Name Aug 06, 2024 10:00 AM AMBULATORY - NONE [facility] Aug 13, 2024 11:30 AM AMBULATORY - NONE [facility] Aug 27, 2024 10:30 AM AMBULATORY - NONE [facility] Aug 27, 2024 10:30 AM AMBULATORY - NONE [facility] Sep 15, 2024 10:00 AM AMBULATORY - NONE [facility] Sep 15, 2024 10:00 AM AMBULATORY - NONE [facility] Oct 08, 2024 11:00 AM AMBULATORY - NONE [facility] Oct 08, 2024 11:00 AM AMBULATORY - NONE [facility] Nov 05, 2024 12:00 PM AMBULATORY - NONE [facility] Nov 05, 2024 12:00 PM AMBULATORY - PS[facility]IATRY [facility] Nov 09, 2024 10:00 AM AMBULATORY - MEDICINE [facility] Nov 17, 2024 10:00 AM AMBULATORY - NONE [facility] Nov 17, 2024 10:00 AM AMBULATORY - PSYCHIATRY EA [facility] Nov 23, 2024 02:30 PM AMBULATORY - PSYCHIATRY [facility] Dec 07, 2024 01:00 PM AMBULATORY - NONE [facility] Dec 07, 2024 01:00 PM AMBULATORY - PSYCHIATRY EA [facility] Dec 22, 2024 01:00 PM [facility] Dec 22, 2024 01:00 PM AMBULATORY - [facility]IATRY [facility] Jan 07, 2025 10:00 AM [facility] Jan 07, 2025 10:00 AM AMBULATORY - PSYCHIATRY [facility] Encounter Notes: All associated encounter notes This section contains the clinical notes associated to the Encounter. Date/Time Encounter Note(s) Provider Source Jul 21, 2024 10:07 AM CAREGIVER CERTIFIC ATE: LOCAL TITLE: [facility] ADMINISTRATIVE NOTE STANDARD TITLE: CAREGIVER CERTIFICATE DATE OF NOTE: JUL 21, 2024@10:07 ENTRY DATE: JUL 21, 2024@10:08:01 AUTHOR: MYA NUNEZ COSIGNER: URGENCY: STATUS: COMPLETED [facility] 15 CLINICAL RESOURCE HUB - FOLLOW UP [facility] PSYCHOLOGY VISIT Two patient identifiers were utilized in order to ensure accuracy of patient identification. Encounter was conducted via Telehealth Modality. Verbal informed consent was obtained from the Caregiver at the time of the encounter. TYPE OF ENCOUNTER: VV VISIT Psychotherapy LENGTH OF ENCOUNTER: 37 Minutes EVIDENCED BASED TREATMENT UTILIZED: Cognitive Behavioral Psychotherapy SUBJECTIVE PRESENTING COMPLAINT:CG indicated that her PC renewed all her psychotropic meds and that she called her insurance company for a list of psychiatry providers in her ntwork. She reported her 's meds were adjusted because he was sleeping alot during the day. She reported now he is doing better with being awake in the daytime and not wandering away from the home. She reported being upset that her aide coverage was decreased by 10 hours a week and that she has been in contact with [facility] staff about getting this changed. She reported that the reduced aide coverage makes afternoon appointments impossible. She reported her brother is taking her car to be fixed for her because the appointmentis in the afternoon. She reported the appears less responsive to her instructions lately. CG discussed wanting to stay resilient as her husbands condition could last 10 years. CG indicated she can still attend her coffee group twice a week. SUICIDALITY/HOMICIDALITY: [X ] asymptomatic [ ] current [...] and commitments [X ] Personal, Cultural, or Voodoo Beliefs for Self Preservation ASSESSMENT OF SUICIDE [...] 's safety. [ ] sleep [ ] sleep [ ] anxiety [ ] anger management [ ] mood [ ] relationship strain / communication RTC placed for f/u care. /abimael/ MYA NUNEZ Signed: 07/21/2024 11:12 MYA NUNEZ [facility]
--- OUTSIDE RECORDS SUMMARY | 2025-02-11 09:45 | XMS_ITS | Encounter Summary ---
Author Name [facility] [place] Address [address] [place] [address] Care Team Providers Care Intake Counselor Name Role Phone WALDEMAR PRUITT Primary Care [...] [facility] (WNR) MEDICARE ADVANTAGE MCR ([facility]) Oct 28, 2023 [id number] [phone] MARINO BOOTH PATIENT -FO R-LIFE [facility] RE FOR LIFE [facility] Jul 28, 2021 FOR LIFE [id number] MARINO BOOTH PATIENT -FO R-LIFE TRICA RE FOR LIFE [facility] Jul 28, 2021 FOR LIFE [id number] [phone] KIM BOOTH HARD SPOUSE [facility] ([facility]) MEDICARE ADVANTAGE MCR ([facility]) Jul 28, 2021 [id number] MARINO BOOTH PATIENT Selected Encounter This section includes the information on record at [place] for the Encounter. Date/Time Encounter Type Encounter Description Reason Provider Source Nov 23, 2024 02:30 PM OFFICE O/P EST HI 40 MIN [facility] - IND ICD-10-CM F32.A Depression, unspecified YOLI GARNER [place] Encounter Template Text not used by [place] Assessments - Encounter Diagnoses This section includes the primary and secondary diagnoses documented for the Encounter. Date/Time Primary/Secondary Diagnosis Diagnosis Name Provider Source Nov 23, 2024 03:05 PM PRIMARY Depression, unspecified YOLI GARNER [facility] Nov 23, 2024 03:05 PM SECONDARY Anxiety disorder, unspecified YOLI GARNER [facility] Nov 23, 2024 03:05 PM SECONDARY Major depressive disorder, recurrent, moderate YOLI GARNER [facility] Plan of Treatment: Future Appointments (+ 6 months) and Future Tests (+/- 45 days) The Plan of Treatment section includes future care activities for the patient from all [place] [facility]. This section includes future appointments and future orders which are active, pending or scheduled. Future Appointments This section includes appointments that were scheduled to occur 6 months from the date of the Encounter, up to a maximum of 20 appointments. The data comes from all [place] treatment facilities. Appointment Date/Time Appointment Type Appointme nt Facility Name Dec 07, 2024 01:00 PM AMBULATORY - NONE [facility] Dec 07, 2024 01:00 PM AMBULATORY - [facility]IATRY [facility] Dec 22, 2024 01:00 PM AMBULATORY - NONE [facility] Dec 22, 2024 01:00 PM AMBULATORY - [facility]CHIATRY [facility] Jan 07, 2025 10:00 AM AMBULATORY - NONE [facility] Jan 07, 2025 10:00 AM AMBULATORY - [facility]CHIATRY [facility] Jan 11, 2025 01:30 PM AMBULATORY - NONE [facility] Jan 11, 2025 01:30 PM AMBULATORY - [facility]IATRY [facility] Jan 21, 2025 10:00 AM AMBULATORY - NONE [facility] Jan 21, 2025 10:00 AM AMBULATORY - [facility]IATRY [facility] Jan 26, 2025 02:00 PM AMBULATORY - NONE [facility] Jan 26, 2025 02:00 PM AMBULATORY - PS[facility]CHIATRY [facility] Feb 16, 2025 10:00 AM AMBULATORY - PS[facility]CHIATRY [facility] Feb 16, 2025 10:00 AM AMBULATORY - NONE [facility] March 23, 2025 12:30 PM [facility] Encounter Notes: All associated encounter notes This section contains the clinical notes associated to the Encounter. Date/Time Encounter Note(s) Provider Source Nov 23, 2024 03:34 PM MENTAL HEALTH NOTE : LOCAL TITLE: [facility] CC NEEDS ASSESSMENT AND INTERVENTION PLAN STANDARD TITLE: MENTAL HEALTH NOTE DATE OF NOTE: NOV 23, 2024@15:34 ENTRY DATE: NOV 23, 2024@15:35:03 AUTHOR: INGE GUEVARA COSIGNER: URGENCY: STATUS: COMPLETED Initial TC Care Coordination Intervention Plan MH Treatment Team: [facility] 4 MH Freight Manager: TORSTEN PADILLA Office Phone: [phone] Analog Pager: Digital Pager: Information gathered from: Chart review Care Coordination Needs Assessment Current assessed care coordination needs: No needs beyond point of contact for continuity of care. Follow-up as clinically indicated: 4 months Reassignment The 's current Mental Health Freight Manager (MHTC) is: MH Treatment Team: [facility] 4 MH Freight Manager: TORSTEN PADILLA Office Phone: [phone] Analog Pager: Digital Pager: This note documents the REASSIGNMENT of the Veterans' Mental Health Freight Manager (MHTC) on Oct. New MHTC name: Inge Guevara TC Contact Information: [phone] This 's existing MHTC was reassigned due to: [place] is transitioning to a new [facility] Team The REASSIGNMENT of the MHTC and information about the role of the MHTC in the 's mental health care was discussed with the who verbally concurred with the REASSIGNMENT. The MHTC's contact information was provided to the in writing or verbally with encouragement to the to document in writing. /abimael/ INGE MINER RN Registered Nurse Signed: 11/23/2024 15:37 INGE GUEVARA [facility] Nov 23, 2024 03:33 PM PRIMARY CARE BRENNAN RS: LOCAL TITLE: NEW PATIENT LETTER STL STANDARD TITLE: PRIMARY CARE LETTERS DATE OF NOTE: NOV 23, 2024@15:33 ENTRY DATE: NOV 23, 2024@15:33:40 AUTHOR: INGE GUEVARA EXP COSIGNER: URGENCY: STATUS: COMPLETED [facility] [address] [place] [address] NOV 23, 2024 MIS BOOTH [address] [place] [place] [address] Good Day to You! Welcome! As you may already know, each patient here at the Mental Health clinic is assigned an RN to serve as their Mental Health Freight Manager (MHTC). I am assigned to all of Dr. Street patients as the primary nurse. I can help you navigate the system, answer questions, pass messages to Dr. Garner, and help with medication renewals (when you have no refills left). I can be reached at ext. [phone]. I am here Saturday, through 0700 to 1700. If I do not answer during that time, please leave me a brief message stating your name clearly and including the last 4 digits of your social. I will try to get back with you that same day. If you are leaving a message about a medication renewal, please tell me the medications you are running low on and let me know if you prefer them mailed or if you intend to pick them up. On Fridays you can leave a message on my phone and someone (usually Alanna) will check it throughout the day. If there is an urgent need, she will call you back. If it is not urgent, she will save the message for me and I will take care of you the next business day. All clinic phones are transferred to the main call center after 4pm each day. The clinic clerks can be reached at extension [phone] if you need to make, cancel or reschedule an appointment. Please do not hesitate to call me if you need anything. Thank you for your service. Inge Guevara RN BSN [facility] Team 1 Mental Health Clinic Freeman Flores ext. [phone] Other important numbers: Veterans Crisis Line: [facility] [facility] (Enter appropriate extension number when prompted) Mental Health Clinic Office ext. [phone] Pharmacy Helpline (To refill meds when you have refills available) ext. [phone] [facility] ext. [phone] Sincerely, INGE MINER RN Registered Nurse INGE GUEVARA [facility] Nov 23, 2024 02:47 PM PSYCHIATRY NOTE: LOCAL TITLE: PSYCHIATRY STL STANDARD TITLE: PSYCHIATRY NOTE DATE OF NOTE: NOV 23, 2024@14:47 ENTRY DATE: NOV 23, 2024@14:47:28 AUTHOR: KIET GARNER COSIGNER: URGENCY: STATUS: COMPLETED Pt see and evaluated. Interval hx reviewed. Appt via VVC - pt at home with + 2 dogs near. 43 min total care/review Primary complaints related to role as primary CG for with MNCD. He Supported by [employer] + [place] resources. Organized a local group of CG that meet for coffee and support each other - has grown from 2 women to about 20. Fair sleep. Using trazodone prn - attempts to limit. Does not use melatonin. Mood stable on buproprion + venlafazine. Discussed multiple stresses that are not ammenable to tx with medications. Active Outpatient Medications (including Supplies): Active Outpatient Medications Status === 1) LIDOCAINE 5% PATCH APPLY 1 PATCH TO SKIN SITE ONCE A DAY ACTIVE APPLY PATCH AND PRESS FIRMLY FOR 10-15 SECONDS. KEEP ON FOR 12 HOURS THEN REMOVE PATCH FOR 12 HOURS. Indication: FOR LOCAL ANESTHESIA Pending Outpatient Medications Status === 1) BUPROPION HCL 150MG 24HR SA TAB TAKE ONE TABLET BY MOUTH PENDING EVERY MORNING Indication: FOR MOOD 2) TRAZODONE HCL 100MG TAB TAKE TWO TABLETS BY MOUTH AT BEDTIME PENDING NEEDED Indication: FOR SLEEP 3) VENLAFAXINE HCL 150MG 24HR SA CAP TAKE ONE CAPSULE BY MOUTH PENDING ONCE A DAY WITH FOOD. DO NOT ABRUPTLY DISCONTINUE MEDICATION. Indication: FOR MOOD/ANXIETY 4 Total Medications Temperature: 97.6 F [36.4 C] (07/19/2021 11:42) Blood Pressure: 114/72 (07/19/2021 11:42) Pulse: 71 (07/19/2021 11:42) Respirations: 16 (07/19/2021 11:42) MSE: Alert, oriented, NAD, appropriately groomed Speech: nml rate, prosody TP: linear, goal directed TC: denies SI/HI/psychosis Mood: OK Affect: stable I/J: intact Impression: 69 year old female with hx of MDD/R/partial remission, anxiety d/o + insomnia presenting for f/u - some residual stresses in the context of severe stresses that include caring for with MNCD with behavioral problems. Medications appear optimized. Low acute risk of self harm Plan: Continue bupropion 150 mg XL Continue Effexor XR 150 mg daily Continue trazodone 100-200 mg nightly discussed important psychosocial interventions + CG support cont psychotherapy discussed medications - risks/cici/alt reviewed [facility] + community resources for urgent care // MHC contact info return 4 mths [facility] /abimael/ Kiet Garner M.D. Staff Physician, Psychiatry Signed: 11/23/2024 15:05 KIET GARNER [facility]
--- OUTSIDE RECORDS SUMMARY | 2025-02-11 09:45 | XMS_ITS | Encounter Summary ---
Author Organization [facility] Healthcare Address [address] [place] [address] Care Team Providers Care Furnace Setter Name Role Phone Gerald De La Cruz MD Primary Care Provider [phone] Niki Reardon SPECIALTY MOLDER Unavailable [phone] Encounter Details Date Type Department Care Team (Late st Contact Info) Description 02/26/2022 Telephone [facility] [address] [place] [address] Sheila Quintana, RT Social History Tobacco Use Types Packs/Day Years Used Date Smoking Tobacco: Never Smokeless Tobacco: Never Alcohol Use Standard Drinks/Week Comments Never 0 (1 standard drink = 0.6 oz pur e alcohol) AUDIT-C Answer Date Recorded Frequency of Alcohol Consumption Never 04/09/2019 Average Number of Drinks Not on file 019 Frequency of Binge Drinking Not on file 03/28 PHQ-2 Answer Date Recorded PHQ-2 Total Score (If total score is 3 or more points, staff should administer the PHQ-9) 2 01/25/2022 Housing Stability Vital Sign Answer Danny e Recorded Unable to Pay for Housing in the Last Year Not o n file 01/25/2022 In the last 12 months, how many places have you lived? 3 01/25/2022 Unstable Housing in the Last Year Not on file 01/25/2022 Comments Unknown Sex and Gender Information Value Date Recorded Sex Assigned at Not on file Legal Sex Female 8:42 AM APPLICATION SUPPORT ADMINISTRATOR Gender Identity Female 08/28/2019 4:50 PM CDT Sexual Orientation Choose not to disclose 2018 4:50 PM CDT documented as of this encounter Plan of Treatment Not on file documented as of this encounter Visit Diagnoses Not on filedocumented in this encounter Care Teams Furnace Setter Relationship Specialty Start Date End Date Gerald De La Cruz MD [address] [place] [address] PCP - General Family Medicine 01/25/22 Niki Reardon NP [address] [place] [address] Psychiatry 01/25/22 07/06/24 documented as of this encounter
--- OUTSIDE RECORDS SUMMARY | 2025-02-11 09:45 | XMS_ITS | Encounter Summary ---
Author Name [facility] [place] Organization [place] Address [address] [place] [address] Care Team Providers Care Dye House Supervisor Name Role Phone WALDEMAR PRUITT Primary Care [...] Baldwin [facility] (WNR) MEDICARE ADVANTAGE MCR ([facility]) Oct 28, 2023 [id number] [phone] MARINO BOOTH PATIENT -FO R-LIFE TRICA RE FOR LIFE [facility] Jul 28, 2021 FOR LIFE [id number] MARINO BOOTH PATIENT -FO R-LIFE TRICA RE FOR LIFE [facility] Jul 28, 2021 FOR LIFE [id number] [phone] KIM BOOTH HARD SPOUSE [facility] ([facility]) MEDICARE ADVANTAGE MCR ([facility]) Jul 28, 2021 [id number] MARINO BOOTH PATIENT Selected Encounter This section includes the information on record at [place] for the Encounter. Date/Time Encounter Type Encounter Description Reason Pro vider Source Jan 11, 2025 01:30 PM Outpatient Encounter ADMIN PAT ACTIVTIES (MASNONCT) IHE Encounter Template Text not used by [place] Plan of Treatment: Future Appointments (+ 6 [...] Appointment Type Appointme nt Facility Name Jan 21, 2025 10:00 AM AMBULATORY - NONE [facility] Jan 21, 2025 10:00 AM AMBULATORY - PSYCHIATRY [facility] Jan 26, 2025 02:00 PM AMBULATORY - NONE [facility] Jan 26, 2025 02:00 PM AMBULATORY - PSYCHIATRY [facility] Feb 16, 2025 10:00 AM AMBULATORY - PSYCHIATRY [facility] Feb 16, 2025 10:00 AM AMBULATORY - NONE [facility] March 23, 2025 12:30 PM AMBULATORY - PSYCHIATRY [facility] Encounter Notes: All associated encounter notes This section contains the clinical notes associated to the Encounter. Date/Time Encounter Note(s) Provider Source Jan 11, 2025 01:37 PM CAREGIVER CERTIFIC ATE: LOCAL TITLE: VPPC INDIVIDUAL PSYCHOTHERAPY NOTE STANDARD TITLE: CAREGIVER CERTIFICATE DATE OF NOTE: JAN 11, 2025@13:37 ENTRY DATE: JAN 11, 2025@13:37:25 AUTHOR: RICHARD GRIDER COSIGNER: URGENCY: STATUS: COMPLETED [facility] 15 CLINICAL RESOURCE [facility] - FOLLOW UP PSYCHOLOGY VISIT VIRTUAL PSYCHOTHERAPY PROGRAM FOR CAREGIVERS ([facility]) Patient identity was verified. Encounter was conducted via Telehealth Modality. Verbal informed consent was obtained from the Caregiver at the time of the encounter. CAPS-Lock procedure was completed to secure the virtual medical room. TYPE OF ENCOUNTER: [facility]VC VISIT Brief Telehealth Check-In LENGTH OF ENCOUNTER: 5 minutes DATE: Dec TREATMENT GOAL(S): To identify strategies for improving connection with self and others and increase well-being. STRENGTHS: The CG appears to be amiable and motivated for treatment at this time. CONTENT/ISSUES ADDRESSED: The CG presented to this session on time. She had her granddaughter at her side, sharing that her daughter would be coming by to pick the child up in a few minutes. The CG expressed feeling encouraged that she was able to hear from her psychiatrist over the weekend. Her medications were adjusted to account for a worsening of depressive symptoms: the CG reports she was instructed to d/c Wellbutrin and increase the dose of Effexor. She shared feeling grateful that her psychiatrist was easygoing and validating, as she had felt anxious about requesting an earlier appointment. We mutually agreed to end this session early given the CG's childcare duties and confirmed her appt next week. INTERVENTIONS UTILIZED: Brief supportive therapy. 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 RTC on . 01/21 @ 1000. /es/ RICHARD GRIDER PSYCHOLOGIST Signed: 01/11/2025 13:45 RICHARD GRIDER [facility]
--- OUTSIDE RECORDS SUMMARY | 2025-02-11 09:45 | XMS_ITS | Encounter Summary ---
Author Name [facility] [place] Address [address] [place] [address] Care Team Providers Care Internal Audit Manager Name Role Phone WALDEMAR PRUITT Primary Care [...] Baldwin [facility] (WNR) MEDICARE ADVANTAGE MCR ([facility]) Oct 28, 2023 [id number] [phone] MARINO BOOTH PATIENT -FO R-LIFE TRICA RE FOR LIFE [facility] Jul 28, 2021 FOR LIFE [id number] MARINO BOOTH PATIENT -FO R-LIFE TRICA RE FOR LIFE [facility] Jul 28, 2021 FOR LIFE [id number] [phone] KIM BOOTH HARD SPOUSE [facility] ([facility]) MEDICARE ADVANTAGE MCR ([facility]) Jul 28, 2021 [id number] [phone] MARINO BOOTH PATIENT Selected Encounter This section includes the information on record at [place] for the Encounter. Date/Time Encounter Type Encounter Description Reason Provider Source May 21, 2024 11:30 AM PSYTX W PT 60 MINUTES CAREGIVER SUPPORT PROGRAM ICD-10-CM F33.0 Major depressive disorder, recurrent, mild COLABELLA,MYA A IHE Encounter Template Text not used by [place] Assessments - Encounter Diagnoses This section includes the primary and secondary diagnoses documented for the Encounter. Date/Time Primary/Secondary Diagnosis Diagnosis Name Provider Source May 21, 2024 12:38 PM PRIMARY Major depressive disorder, recurrent, mild COLABELLA,MYA A [facility] May 21, 2024 12:38 PM SECONDARY Anxiety disorder, unspecified COLABELLA,MYA A [facility] Plan of Treatment: Future Appointments (+ 6 months) and Future Tests (+/- 45 days) The Plan of Treatment section includes future care activities for the patient from all [place] [facility]. This section includes future appointments and future orders which are active, pending or scheduled. Future Appointments This section includes appointments that were scheduled to occur 6 months from the date of the Encounter, up to a maximum of 20 appointments. The data comes from all [place] treatment facilities. Appointment Date/Time Appointment Type Appointme nt Facility Name May 28, 2024 01:30 PM AMBULATORY - PSYCHIATRY [facility] May 28, 2024 02:30 PM AMBULATORY - NONE [facility] Jun 04, 2024 02:30 PM AMBULATORY - NONE [facility] Jun 08, 2024 12:30 PM AMBULATORY - NONE [facility] Jun 08, 2024 12:30 PM AMBULATORY - NONE [facility] Jun 11, 2024 02:30 PM AMBULATORY - NONE [facility] Jun 22, 2024 12:30 PM AM[facility]ULATORY - NONE [facility] Jun 22, 2024 12:30 PM AMBULATORY - NONE [facility] Jul 09, 2024 11:30 AM AMBULATORY - NONE [facility] Jul 09, 2024 11:30 AM AMBULATORY - NONE [facility] Jul 21, 2024 10:30 AM AMBULATORY - NONE [facility] Jul 21, 2024 10:30 AM [facility]ATORY - NONE [facility] Aug 06, 2024 10:00 AM AMBULATORY - NONE [facility] Aug 13, 2024 11:30 AM AMBULATORY - NONE [facility] Aug 27, 2024 10:30 AM AMBULATORY - NONE [facility] Aug 27, 2024 10:30 AM AMBULATORY - NONE [facility] Sep 15, 2024 10:00 AM AMBULATORY - NONE [facility] Sep 15, 2024 10:00 AM AMBULATORY - NONE [facility] Oct 08, 2024 11:00 AM AMBULATORY - NONE [facility] Oct 08, 2024 11:00 AM AMBULATORY - NONE [facility] Encounter Notes: All associated encounter notes This section contains the clinical notes associated to the Encounter. Date/Time Encounter Note(s) Provider Source May 21, 2024 11:22 AM CAREGIVER CERTIFIC ATE: LOCAL TITLE: [facility] INDIVIDUAL PSYCHOTHERAPY NOTE STANDARD TITLE: CAREGIVER CERTIFICATE DATE OF NOTE: MAY 21, 2024@11:22 ENTRY DATE: MAY 21, 2024@11:23:06 AUTHOR: MYA NUNEZ EXP COSIGNER: URGENCY: STATUS: COMPLETED The telehealth encounter was conducted with the in the [facility]) system today . Please see [facility] Viewer for progress note, clinical reminders, and patient orders. /abimael/ MYA NUNEZ Signed: 05/21/2024 12:38 MYA NUNEZ [facility]
--- OUTSIDE RECORDS SUMMARY | 2025-02-11 09:45 | XMS_ITS | Encounter Summary ---
Author Name [place] Organization [place] Address [address] [place] [address] Care Team Providers Care Business Editor Name Role Phone WALDEMAR PRUITT Primary Care [...] ([facility]) Oct 28, 2023 [id number] [phone] MARINO BOOTH PATIENT -FO R-LIFE [facility] Jul 28, 2021 FOR LIFE [id number] [phone] MARINO BOOTH PATIENT -FO R-LIFE [facility] RE FOR LIFE [facility] Jul 28, 2021 FOR LIFE [id number] [phone] KIM BOOTH HARD SPOUSE [facility] ([facility]) MEDICARE ADVANTAGE MCR ([facility]) Jul 28, 2021 [id number] MARINO BOOTH PATIENT Selected Encounter This section includes the information on record at [place] for the Encounter. Date/Time Encounter Type Encounter Description Reason Pro vider Source Oct 08, 2024 11:00 AM Outpatient Encounter ADMIN PAT ACTIVTIES (MASNONCT) IHE Encounter Template Text not used by [place] Plan of Treatment: Future Appointments (+ 6 months) and Future Tests (+/- 45 days) The Plan of Treatment section includes future care activities for the patient from all [place] [facility]. This section includes future appointments and future orders which are active, pending or scheduled. Future Appointments This section includes appointments that were scheduled to occur 6 months from the date of the Encounter, up to a maximum of 20 appointments. The data comes from all [place] treatment facilities. Appointment Date/Time Appointment Type Appointme nt Facility Name Nov 05, 2024 12:00 PM AMBULATORY - NONE [facility] Nov 05, 2024 12:00 PM [facility]ATORY [facility] Nov 09, 2024 10:00 AM AMBULATORY - MEDICINE [facility] Nov 17, 2024 10:00 AM AM[facility]ULATORY - NONE [facility] Nov 17, 2024 10:00 AM [facility] Nov 23, 2024 02:30 PM [facility] Dec 07, 2024 01:00 PM AMBULATORY - NONE [facility] Dec 07, 2024 01:00 PM [facility]AT[facility] Dec 22, 2024 01:00 PM AMBULATORY - NONE [facility] Dec 22, 2024 01:00 PM AMBULATORY [facility] Jan 07, 2025 10:00 AM AMBULATORY - NONE [facility] Jan 07, 2025 10:00 AM [facility] Jan 11, 2025 01:30 PM AMBULATORY - NONE [facility] Jan 11, 2025 01:30 PM [facility]ULAT[facility] - [facility] Jan 21, 2025 10:00 AM AMBULATORY - NONE [facility] Jan 21, 2025 10:00 AM [facility]AT[facility] Jan 26, 2025 02:00 PM [facility] Jan 26, 2025 02:00 PM AMBULATORY - PSYCHIATRY [facility] Feb 16, 2025 10:00 AM AMBULATORY - PS[facility]CHIATRY [facility] Feb 16, 2025 10:00 AM AMBULATORY - NONE [facility] Encounter Notes: All associated encounter notes This section contains the clinical notes associated to the Encounter. Date/Time Encounter Note(s) Provider Source Oct 08, 2024 10:52 AM CAREGIVER CERTIFIC ATE: LOCAL TITLE: [facility] INDIVIDUAL PSYCHOTHERAPY NOTE STANDARD TITLE: CAREGIVER CERTIFICATE DATE OF NOTE: OCT 08, 2024@10:52 ENTRY DATE: OCT 08, 2024@10:52:30 AUTHOR: MYA NUNEZ COSIGNER: URGENCY: STATUS: COMPLETED VISN 15 [employer] - FOLLOW UP [facility] PSYCHOLOGY VISIT Two patient identifiers were utilized in order to ensure accuracy of patient identification. Encounter was conducted via Telehealth Modality. Verbal informed consent was obtained from the Caregiver at the time of the encounter. TYPE OF ENCOUNTER: VV VISIT Psychotherapy LENGTH OF ENCOUNTER: 50 Minutes EVIDENCED BASED TREATMENT UTILIZED: Cognitive Behavioral Psychotherapy SUBJECTIVE PRESENTING COMPLAINT:CG indicated that she was having to adjust to her 's needs as well as her dogs and adult childrens. She reported having difficulty with acceptance of differences within the family and wanting things her way. She reported that her brothers have been supportive and one offered to do any needed home repairs and the other helps her organize her finances. She reported getting an appointment with a psychiatrist and starting a healthier diet. The transfer to Dr. Herr was discussed as this provider is longer available for scheduling. SUICIDALITY/HOMICIDALITY: [X ] asymptomatic [ ] current [...] and commitments [X ] Personal, Cultural, or Worship Beliefs for Self Preservation ASSESSMENT OF SUICIDE [...] ASSESSMENT/PLANNING: -Orientation: person, place, time -Mood was anxious/irritable -Affect: congruent with stated mood and symptoms. [...] ] Watchful Waiting [X ] Psychotherapy Target goals:Transfer to a new psychologist also discussed and caregiver accomplishments highlighted. Caregiver ongoing goals discussed and healthy coping reinforced. [ ] sleep [ ] anxiety [ ] anger management [ ] mood [X ] relationship strain / communication RTC placed for f/u care with Dr. Herr. /abimael/ MYA NUNEZ Signed: 10/08/2024 12:46 MYA NUNEZ [facility]
--- OUTSIDE RECORDS SUMMARY | 2025-02-11 09:45 | XMS_ITS | Encounter Summary ---
Author Name Department [place] ([place]) Organization [place] ([place]) Address [address] [place] [address] Care Team Providers Care Food Storeroom Clerk Name Role Phone WALDEMAR PRUITT Primary Care [...] ([facility]) Oct 28, 2023 [id number] [phone] MARINO BOOTH PATIENT -FO R-LIFE [facility] RE FOR LIFE [facility] Jul 28, 2021 FOR LIFE [id number] MARINO BOOTH PATIENT -FO R-LIFE TRICA RE FOR LIFE [facility] Jul 28, 2021 FOR LIFE [id number] [phone] KIM BOOTH HARD SPOUSE [facility] ([facility]) MEDICARE ADVANTAGE MCR ([facility]) Jul 28, 2021 [id number] MARINO BOOTH PATIENT Selected Encounter This section includes the information on record at [place] for the Encounter. Date/Time Encounter Type Encounter Description Reason Pro vider Source March 12, 2024 12:30 PM Outpatient Encounter ADMIN PAT ACTIVTIES (MASNONCT) [...] Appointment Type Appointme nt Facility Name March 26, 2024 12:30 PM [facility]ONE [facility] March 26, 2024 12:30 PM [facility]ONE [facility] Apr 09, 2024 12:30 PM [facility] Apr 09, 2024 12:30 PM [facility]ORY - NONE [facility] Apr 23, 2024 02:30 PM AM[facility]ATORY - NONE [facility] Apr 28, 2024 01:00 PM [facility]AT[facility]ONE [facility] Apr 28, 2024 01:00 PM [facility]ATORY - NONE [facility] May 07, 2024 02:30 PM AMBULATORY - NONE [facility] May 14, 2024 02:30 PM AMBULATORY - NONE [facility] May 21, 2024 11:30 AM [facility] May 21, 2024 11:30 AM [facility]ORY - NONE [facility] May 21, 2024 02:30 PM AMBULATORY - NONE [facility] May 28, 2024 01:30 PM AMBULATORY - PSYCHIATRY [facility] May 28, 2024 02:30 PM AMBULATORY - NONE [facility] Jun 04, 2024 02:30 PM AMBULATORY - NONE [facility] Jun 08, 2024 12:30 PM [facility]ONE [facility] Jun 08, 2024 12:30 PM [facility]ORY - NONE [facility] Jun 11, 2024 02:30 PM AMBULATORY - NONE [facility] Jun 22, 2024 12:30 PM [facility]ULATORY [facility] NONE [facility] Jun 22, 2024 12:30 PM AMBULATORY - NONE [facility] Encounter Notes: All associated encounter notes This section contains the clinical notes associated to the Encounter. Date/Time Encounter Note(s) Provider Source March 12, 2024 09:20 AM CAREGIVER CERTIFIC ATE: LOCAL TITLE: [facility] INDIVIDUAL PSYCHOTHERAPY NOTE STANDARD TITLE: CAREGIVER CERTIFICATE DATE OF NOTE: MARCH 12, 2024@09:20 ENTRY DATE: MARCH 12, 2024@09:20:53 AUTHOR: MYA NUNEZ COSIGNER: URGENCY: STATUS: COMPLETED VISN 15 [employer] [facility] - FOLLOW UP [facility] PSYCHOLOGY VISIT Two patient identifiers were utilized in order to ensure accuracy of patient identification. Encounter was conducted via Telehealth Modality. Verbal informed consent was obtained from the Caregiver at the time of the encounter. TYPE OF ENCOUNTER: VVC VISIT Psychotherapy LENGTH OF ENCOUNTER: 54 Minutes EVIDENCED BASED TREATMENT UTILIZED: Cognitive Behavioral Psychotherapy SUBJECTIVE PRESENTING COMPLAINT:The CG indicated a long history of avoiding leaving the house for errands. She reported feeling uncomfortable driving and in stores. She reported that she does not try to take her places outside the home due to a fear that he could become impatient. She reported ongoing frustration that others don't do more for her. She reported one of her daughter's is to visit today. SUICIDALITY/HOMICIDALITY: [X ] asymptomatic [ ] current [...] and commitments [X ] Personal, Cultural, or Rastafari Beliefs for Self Preservation ASSESSMENT OF SUICIDE [...] TAKE TWO TABLETS BY MOUTH AT ACTIVE (S) BEDTIME 5) VENLAFAXINE HCL 150MG 24HR SA CAP TAKE ONE CAPSULE BY ACTIVE MOUTH ONCE A DAY FOR MOOD/ANXIETY WITH FOOD. DO NOT ABRUPTLY DISCONTINUE MEDICATION. MENTAL STATUS EXAMINATION WITH SAFETY ASSESSMENT/PLANNING: -Orientation: person, place, time -Mood was dysthymic -Affect: congruent with stated mood and symptoms. [...] ] Watchful Waiting [ ] Psychotherapy Target goals:MT psychotherapy techniques were utilized to address the CG's motivation to make changes as she continues to show signs of agoraphobia and then blames her 's illness on not leaving the home. [ ] sleep [ ] anxiety [ ] anger management [ ] mood [ ] relationship strain / communication RTC placed for f/u care. /es/ MYA NUNEZ Signed: 03/12/2024 13:25 MYA NUNEZ [facility]
--- OUTSIDE RECORDS SUMMARY | 2025-02-11 09:45 | XMS_ITS | Encounter Summary ---
Author Name [place] Address [address] [place] [address] Care Team Providers Care Industrial Safety And Health Specialist Name Role Phone WALDEMAR PRUITT Primary [...] [facility] ([facility]) MEDICARE ADVANTAGE MCR ([facility]) Oct 28, 2023 [id number] [phone] MARINO BOOTH PATIENT -FO R-LIFE [facility] RE FOR LIFE [facility] Jul 28, 2021 FOR LIFE [id number] MARINO BOOTH PATIENT -FO R-LIFE TRICA RE FOR LIFE [facility] Jul 28, 2021 FOR LIFE [id number] [phone] KIM BOOTH HARD SPOUSE [facility] ([facility]) MEDICARE ADVANTAGE MCR ([facility]) Jul 28, 2021 [id number] MARINO BOOTH PATIENT Selected Encounter This section includes the information on record at [place] for the Encounter. Date/Time Encounter Type Encounter Description Reason Pro vider Source May 21, 2024 11:30 AM Outpatient Encounter ADMIN PAT ACTIVTIES (MASNONCT) IHE Encounter Template Text not used by [place] Plan of Treatment: Future Appointments (+ 6 months) and Future Tests (+/- 45 days) The Plan of Treatment section includes future care activities for the patient from all [place] treatmentfacilities. This section includes future appointments and future orders which are active, pending or scheduled. Future Appointments This section includes appointments that were scheduled to occur 6 months from the date of the Encounter, up to a maximum of 20 appointments. The data comes from all [place] treatment facilities. Appointment Date/Time Appointment Type Appointme nt Facility Name May 28, 2024 01:30 PM AMBULATORY - PSYCHIATRY [facility] May 28, 2024 02:30 PM AMBULATORY - NONE [facility] Jun 04, 2024 02:30 PM AMBULATORY - NONE [facility] Jun 08, 2024 12:30 PM [facility]AT[facility]ONE [facility] Jun 08, 2024 12:30 PM AM[facility]ATORY - NONE [facility] Jun 11, 2024 02:30 PM AMBULATORY - NONE [facility] Jun 22, 2024 12:30 PM [facility]AT[facility] NONE [facility] Jun 22, 2024 12:30 PM AMBULATORY - NONE [facility] Jul 09, 2024 11:30 AM [facility]ULAT[facility] NONE [facility] Jul 09, 2024 11:30 AM AMBULATORY - NONE [facility] Jul 21, 2024 10:30 AM [facility]ULAT[facility] NONE [facility] Jul 21, 2024 10:30 AM AMBULATORY - NONE [facility] Aug 06, 2024 10:00 AM [facility]AT[facility]ONE [facility] Aug 13, 2024 11:30 AM [facility]ATORY - NONE [facility] Aug 27, 2024 10:30 AM [facility]ONE [facility] Aug 27, 2024 10:30 AM [facility]ATORY - NONE [facility] Sep 15, 2024 10:00 AM [facility]ULAT[facility]ONE [facility] Sep 15, 2024 10:00 AM AMBULATORY - NONE [facility] Oct 08, 2024 11:00 AM AMBULATORY - NONE [facility] Oct 08, 2024 11:00 AM AMBULATORY - NONE [facility] Encounter Notes: All associated encounter notes This section contains the clinical notes associated to the Encounter. Date/Time Encounter Note(s) Provider Source May 21, 2024 11:26 AM CAREGIVER CERTIFIC ATE: LOCAL TITLE: [facility] INDIVIDUAL PSYCHOTHERAPY NOTE STANDARD TITLE: CAREGIVER CERTIFICATE DATE OF NOTE: MAY 21, 2024@11:26 ENTRY DATE: MAY 21, 2024@11:26:23 AUTHOR: MYA NUNEZ COSIGNER: URGENCY: STATUS: COMPLETED VISN 15 CL[employer] [facility] - FOLLOW UP [facility] PSYCHOLOGY VISIT Two patient identifiers were utilized in order to ensure accuracy of patient identification. Encounter was conducted via Telehealth Modality. Verbal informed consent was obtained from the Caregiver at the time of the encounter. TYPE OF ENCOUNTER: VVC VISIT Psychotherapy LENGTH OF ENCOUNTER: 55 Minutes EVIDENCED BASED TREATMENT UTILIZED: Cognitive Behavioral Psychotherapy SUBJECTIVE PRESENTING COMPLAINT:CG indicated that her social group includes new members including a women with her with early onset dementia. The CG indicated that this relationship has been very helpful in sharing ideas on how to handle challenges. She also reported being more assertive with others with mixed results. She discussed the balance of wanting to protect herself in some ways while still maintaining family relationships. She reported getting along well with their current home health aide and doing more walking for her health. She reported that she is also expecting an improvement with her finances as she is supposed to be getting an insurance check for losses related to her previous home and taking steps to safeguard that money. SUICIDALITY/HOMICIDALITY: [X ] asymptomatic [ ] current [...] ASSESSMENT/PLANNING: -Orientation: person, place, time -Mood was anxious, but more upbeat. Smiled more. -Affect: congruent with stated mood and symptoms. [...] MDD, recurrent, mild Anxiety Unspecified [facility] of [facility] with Cognitive and Emotional Impairment TREATMENT PLAN: [ ] Referral/Consultation: [ ] Watchful Waiting [X ] Psychotherapy Target goals:CG is working toward increasing socialization/connection, excercise, and creating healthier family relationships through boundary setting. [ ] sleep [ ] anxiety [ ] anger management [ ] mood [ ] relationship strain / communication RTC placed for f/u care. /abimael/ MYA NUNEZ Signed: 05/21/2024 12:37 MYA NUNEZ [facility]
--- OUTSIDE RECORDS SUMMARY | 2025-02-11 09:45 | XMS_ITS ---
Author Name Department [place] Address [address] [place] [address] Care Team Providers Care Cyber Crime Investigator Name Role Phone WALDEMAR PRUITT Primary Care [...] [place] [facility] ([facility]NR) MEDICARE ADVANTAGE MCR ([facility]) Oct 28, 2023 [id number] [phone] MARINO BOOTH PATIENT -FO R-LIFE [facility] RE FOR LIFE [facility] Jul 28, 2021 FOR LIFE [id number] MARINO BOOTH PATIENT -FO R-LIFE TRICA RE FOR LIFE [facility] Jul 28, 2021 FOR LIFE [id number] [phone] KIM BOOTH HARD SPOUSE [facility] ([facility]) MEDICARE ADVANTAGE MCR ([facility]) Jul 28, 2021 [id number] MARINO BOOTH PATIENT Selected Encounter This section includes the information on record at [place] for the Encounter. Date/Time Encounter Type Encounter Description Reason Pro vider Source Aug 27, 2024 10:30 AM Outpatient Encounter ADMIN PAT ACTIVTIES (MASNONCT) IHE Encounter Template Text not used by [place] Plan of Treatment: Future Appointments (+ 6 months) and Future Tests (+/- 45 days) The Plan of Treatment section includes future care activities for the patient from all [place] [facility]. This section includes future appointments and future orders which are active, pending or scheduled. Future Appointments This section includes appointments that were scheduled to occur 6 months from the date of the Encounter, up to a maximum of 20 appointments. The data comes from all [place] treatment facilities. Appointment Date/Time Appointment Type Appointme nt Facility Name Sep 15, 2024 10:00 AM AMBULATORY - NONE [facility] Sep 15, 2024 10:00 AM AMBULATORY - NONE [facility] [place] [facility] Oct 08, 2024 11:00 AM AMBULATORY - NONE [facility] Oct 08, 2024 11:00 AM AMBULATORY - NONE [facility] [place] [facility] Nov 05, 2024 12:00 PM AMBULATORY - NONE [facility] Nov 05, 2024 12:00 PM AMBULATORY - PS[facility]CHIATRY [facility] Nov 09, 2024 10:00 AM AMBULATORY - MEDICINE [facility] Nov 17, 2024 10:00 AM AMBULATORY - NONE [facility] Nov 17, 2024 10:00 AM AMBULATORY - PSYCHIATRY [facility] Nov 23, 2024 02:30 PM AMBULATORY - PSYCHIATRY [facility] Dec 07, 2024 01:00 PM AMBULATORY - NONE [facility] Dec 07, 2024 01:00 PM AMBULATORY - PS[facility]CHIATRY [facility] Dec 22, 2024 01:00 PM AMBULATORY - NONE [facility] Dec 22, 2024 01:00 PM AMBULATORY - PSYCHIATRY [facility] Jan 07, 2025 10:00 AM AMBULATORY - NONE [facility] Jan 07, 2025 10:00 AM AMBULATORY - PSYCHIATRY [facility] Jan 11, 2025 01:30 PM [facility]ULATORY - NONE [facility] Jan 11, 2025 01:30 PM AMBULATORY - PSYCHIATRY [facility] Jan 21, 2025 10:00 AM AMBULATORY - NONE [facility] Jan 21, 2025 10:00 AM AMBULATORY - PSYCHIATRY [facility] Encounter Notes: All associated encounter notes This section contains the clinical notes associated to the Encounter. Date/Time Encounter Note(s) Provider Source Aug 27, 2024 10:31 AM CAREGIVER CERTIFIC ATE: LOCAL TITLE: [facility] ADMINISTRATIVE NOTE STANDARD TITLE: CAREGIVER CERTIFICATE DATE OF NOTE: AUG 27, 2024@10:31 ENTRY DATE: AUG 27, 2024@10:31:38 AUTHOR: MYA NUNEZ COSIGNER: URGENCY: STATUS: COMPLETED VISN 15 [employer] [facility] - FOLLOW UP [facility] PSYCHOLOGY VISIT Two patient identifiers were utilized in order to ensure accuracy of patient identification. Encounter was conducted via Telehealth Modality. Verbal informed consent was obtained from the Caregiver at the time of the encounter. TYPE OF ENCOUNTER: VVC VISIT Psychotherapy LENGTH OF ENCOUNTER: 54 Minutes EVIDENCED BASED TREATMENT UTILIZED: Cognitive Behavioral Psychotherapy SUBJECTIVE PRESENTING COMPLAINT:The caregiver reported two of her friends/acquantances this past week due to medical issues. She reported her coffee group is strong and she expects it continue. She reported having aide coverage in the mornings on weekdays, her car is working now, and she was able to get a new couch for the living room. She reported that their normal aide was hospitalized and looking into other agency options. She reported she was told the insurance company is to send a check in the next couple days for her previous home so they will likely be able to move forward with the sale soon. She reported often worrying and hoping others will solve her problems. SUICIDALITY/HOMICIDALITY: [X ] asymptomatic [ ] current [...] ] Watchful Waiting [X ] Psychotherapy Target goals: Identify CG goals/accomplishmnets versus her belief that she is stuck. Reinforce advocacy and explore CG reluctance at times to communicate needs with aides coming to the home. [ ] sleep [ ] anxiety [ ] anger management [ ] mood [ ] relationship strain / communication RTC placed for f/u care. /es/ MYA NUNEZ Signed: 08/27/2024 12:03 MYA NUNEZ [facility]
--- OUTSIDE RECORDS SUMMARY | 2025-02-11 09:45 | XMS_ITS | Encounter Summary ---
Author Name [facility] [place] Address [address] [place] [address] Care Team Providers Care Physician Non Invasive Cardiologist Name Role Phone WALDEMAR PRUITT Primary Care [...] ([facility]) Oct 28, 2023 [id number] [phone] MARINO BOOTH PATIENT -FO R-LIFE [facility] RE FOR LIFE [facility] Jul 28, 2021 FOR LIFE [id number] [phone] MARINO BOOTH PATIENT -FO R-LIFE [facility]ICA RE FOR LIFE [facility] Jul 28, 2021 FOR LIFE [id number] [phone] KIM BOOTH HARD SPOUSE [facility] ([facility]) MEDICARE ADVANTAGE MCR ([facility]) Jul 28, 2021 [id number] MARINO BOOTH PATIENT Selected Encounter This section includes the information on record at [place] for the Encounter. Date/Time Encounter Type Encounter Description Reason Pro vider Source Nov 17, 2024 10:00 AM Outpatient Encounter ADMIN PAT ACTIVTIES (MASNONCT) IHE Encounter Template Text not used by [place] Plan of Treatment: Future Appointments (+ 6 months) and Future Tests (+/- 45 days) The Plan of Treatment section includes future care activities for the patient from all [place] [facility]. This section includes future appointments and future orders which are active, pending or scheduled. Future Appointments This section includes appointments that were scheduled to occur 6 months from the date of the Encounter, up to a maximum of 20 appointments. The data comes from all [place] treatment facilities. Appointment Date/Time Appointment Type Appointme nt Facility Name Nov 23, 2024 02:30 PM AMBULATORY - [facility]RY [facility] Dec 07, 2024 01:00 PM AMBULATORY - NONE [facility] Dec 07, 2024 01:00 PM [facility] Dec 22, 2024 01:00 PM AMBULATORY - NONE [facility] Dec 22, 2024 01:00 PM [facility] Jan 07, 2025 10:00 AM AMBULATORY - NONE [facility] Jan 07, 2025 10:00 AM [facility]BULATORY [facility] Jan 11, 2025 01:30 PM AMBULATORY - NONE [facility] Jan 11, 2025 01:30 PM [facility]UL[facility] Jan 21, 2025 10:00 AM AMBULATORY - NONE [facility] Jan 21, 2025 10:00 AM [facility] Jan 26, 2025 02:00 PM AMBULATORY - NONE [facility] Jan 26, 2025 02:00 PM [facility] - [facility] Feb 16, 2025 10:00 AM AM[facility]ULATORY - [facility] Feb 16, 2025 10:00 AM AMBULATORY - NONE [facility] March 23, 2025 12:30 PM AM[facility]ULATORY - [facility]RY [facility] Encounter Notes: All associated encounter notes This section contains the clinical notes associated to the Encounter. Date/Time Encounter Note(s) Provider Source Nov 17, 2024 10:08 AM CAREGIVER CERTIFIC ATE: LOCAL TITLE: [facility] INDIVIDUAL PSYCHOTHERAPY NOTE STANDARD TITLE: CAREGIVER CERTIFICATE DATE OF NOTE: NOV 17, 2024@10:08 ENTRY DATE: NOV 17, 2024@10:08:08 AUTHOR: RICHARD GRIDER COSIGNER: URGENCY: STATUS: COMPLETED [facility] 15 CLINICAL RESOURCE [facility] - FOLLOW UP PSYCHOLOGY VISIT VIRTUAL [...] this session on time. She reported feeling more motivated this week to organize her space. She also reports being curious about journaling, which was recommended by a friend. We discussed the benefits of journaling. The CG acknowledged it has been challenging to take on the responsibilities that her used to hold, including handiwork and appliance maintenance in their home. She reports she needs to make a phone call to get their furnace serviced after recent freezing temps. She shared frustration that her was removed from [facility]; his care is being transferred back to the Geriatrics team, which means they will have to travel to the clinic for appointments once again. Her daughter, Nina, has offered to support with driving to and from appointments. The CG shared she has a phone call next week with the [place] legal benefits team to learn about writing her own will and designating beneficiaries. She shared that she had a new respite caregiver start this week who seems to be a good fit. She was briefly tearful acknowledging she continues to grieve the loss of her friend, Buddy. The CG also reflected on specific interpersonal difficulties that her , Jose, has. She shared feeling confused about how his Bipolar I diagnosis interacts with his dementia, and reflected on observing more anger and aggression in her 's behavior around 2015 with the presidential election. She reports he displays rhythmic self-soothing behaviors, such as drumming on his lap, and often withdraws into his own world on his computer with headphones on. She shared he had always been quite intelligent and great at fixing things . We discussed the concept of masking, which may support the CG in accepting that the she first met when he was higher functioning and still active duty is not the same as the unmasked man she lives with today, whose struggles are more apparent. The CG admitted she has numerous anxieties, including fears about losing her or one of her daughters, figuring out who will care for her pets in the event of her own , and generally how to grapple with feeling that her best years are behind her. Together we reflected on how she might create space for envisioning a next chapter in her life. INTERVENTIONS UTILIZED: Mindfulness-Based Cognitive Therapy (MBCT). 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 RTC on 12/07 @ 1300. /abimael/ RICHARD GRIDER PSYCHOLOGIST Signed: 11/17/2024 16:12 RICHARD GRIDER [facility]
--- OUTSIDE RECORDS SUMMARY | 2025-02-11 09:45 | XMS_ITS | Encounter Summary ---
Author Name [facility] [place] Organization [place] Address [address] [place] [address] Care Team Providers Care Senior Net Architect Name Role Phone WALDEMAR PRUITT Primary Care [...] [facility] ([facility]NR) MEDICARE ADVANTAGE MCR ([facility]) Oct 28, 2023 [id number] [phone] MARINO BOOTH PATIENT -FO R-LIFE TRICA RE FOR LIFE [facility] Jul 28, 2021 FOR LIFE [id number] MARINO BOOTH PATIENT -FO R-LIFE TRICA RE FOR LIFE [facility] Jul 28, 2021 FOR LIFE [id number] [phone] KIM BOOTH HARD SPOUSE [facility] ([facility]) MEDICARE ADVANTAGE MCR ([facility]) Jul 28, 2021 [id number] [phone] MARINO BOOTH PATIENT Selected Encounter This section includes the information on record at [place] for the Encounter. Date/Time Encounter Type Encounter Description Reason Pro vider Source March 26, 2024 12:30 PM Outpatient Encounter ADMIN PAT ACTIVTIES (MASNONCT) IHE Encounter Template Text not used by [place] Plan of Treatment: Future Appointments (+ 6 months) and Future Tests (+/- 45 days) The Plan of Treatment section includes future care activities for the patient from all [place] treatmentfacilities. This section includes future appointments and future orders which are active, pending or scheduled. Future Appointments This section includes appointments that were scheduled to occur 6 months from the date of the Encounter, up to a maximum of 20 appointments. The data comes from all [place] treatment facilities. Appointment Date/Time Appointment Type Appointme nt Facility Name Apr 09, 2024 12:30 PM [facility]ULAT[facility] NONE [facility] Apr 09, 2024 12:30 PM [facility]ORY [facility] NONE [facility] Apr 23, 2024 02:30 PM [facility]ORY - NONE [facility] Apr 28, 2024 01:00 PM AM[facility]ULATORY [facility]ONE [facility] Apr 28, 2024 01:00 PM AM[facility]ATORY - NONE [facility] May 07, 2024 02:30 PM AMBULATORY - NONE [facility] May 14, 2024 02:30 PM AMBULATORY - NONE [facility] May 21, 2024 11:30 AM AMBULATORY [facility]ONE [facility] May 21, 2024 11:30 AM [facility]ATORY - NONE [facility] May 21, 2024 02:30 PM AMBULATORY - NONE [facility] May 28, 2024 01:30 PM AMBULATORY - PSYCHIATRY [facility] May 28, 2024 02:30 PM AMBULATORY - NONE [facility] Jun 04, 2024 02:30 PM AMBULATORY - NONE [facility] Jun 08, 2024 12:30 PM AM[facility]ULATORY [facility] NONE [facility] Jun 08, 2024 12:30 PM [facility]ORY - NONE [facility] Jun 11, 2024 02:30 PM AMBULATORY - NONE [facility] Jun 22, 2024 12:30 PM AM[facility]ULAT[facility] NONE [facility] Jun 22, 2024 12:30 PM [facility]ORY - NONE [facility] Jul 09, 2024 11:30 AM AMBULATORY [facility] NONE [facility] Jul 09, 2024 11:30 AM AMBULATORY - NONE [facility] Encounter Notes: All associated encounter notes This section contains the clinical notes associated to the Encounter. Date/Time Encounter Note(s) Provider Source March 26, 2024 12:26 PM CAREGIVER CERTIFIC ATE: LOCAL TITLE: [facility] INDIVIDUAL PSYCHOTHERAPY NOTE STANDARD TITLE: CAREGIVER CERTIFICATE DATE OF NOTE: MARCH 26, 2024@12:26 ENTRY DATE: MARCH 26, 2024@12:26:31 AUTHOR: MYA NUNEZ COSIGNER: URGENCY: STATUS: COMPLETED [facility] - FOLLOW UP [facility] PSYCHOLOGY VISIT Two patient identifiers were utilized in order to ensure accuracy of patient identification. Encounter was conducted via Telehealth Modality. Verbal informed consent was obtained from the Caregiver at the time of the encounter. TYPE OF ENCOUNTER: [facility] VISIT Psychotherapy LENGTH OF ENCOUNTER: 54 Minutes EVIDENCED BASED TREATMENT UTILIZED: Cognitive Behavioral Psychotherapy SUBJECTIVE PRESENTING COMPLAINT:The CG indicated that she was treated in the ER a week ago for a UTI. She reported a history of getting malaise and cognitive symptoms when she gets a UTI. She reported that she thought she had a virus and that her daughter insisted she go to the hospital. She identified ways to be aware of a UTI in the future and indicated that she changed her insurance so she could go see her physician next week. She reported getting 5 extra hours of respite a week and this has allowed more time to visit family, friends, and attend medical appointments. She reported spending time in her yard connecting with nature. She discussed getting some plants/a garden put in. SUICIDALITY/HOMICIDALITY: [X ] asymptomatic [ ] current [...] and commitments [X ] Personal, Cultural, or Adventism Beliefs for Self Preservation ASSESSMENT OF SUICIDE [...] ASSESSMENT/PLANNING: -Orientation: person, place, time -Mood was mildly anxious -Affect: congruent with stated mood and [...] Watchful Waiting [X ] Psychotherapy Target goals:CG was able to identify goals and ways to reduce her anxiety and increase her life satisfaction. She indicated that spending time with nature and connecting with others are her major sources of satisfaction. She identified fearful thought processes that decrease her confidence. [ ] sleep [ ] anxiety [ ] anger management [ ] mood [ ] relationship strain / communication RTC placed for f/u care. /abimael/ MYA NUNEZ Signed: 03/26/2024 13:38 MYA NUNEZ [facility]
--- OUTSIDE RECORDS SUMMARY | 2025-02-11 09:45 | XMS_ITS | Encounter Summary ---
Author Name [facility] [place] Address [address] [place] [address] Care Team Providers Care Hospital Manager Name Role Phone WALDEMAR PRUITT Primary [...] [place] [facility] (WNR) MEDICARE ADVANTAGE MCR ([facility]) Oct 28, 2023 [id number] [phone] MARINO BOOTH PATIENT -FO R-LIFE TRICA RE FOR LIFE [facility] Jul 28, 2021 FOR LIFE [id number] MARINO BOOTH PATIENT -FO R-LIFE TRICA RE FOR LIFE [facility] Jul 28, 2021 FOR LIFE [id number] [phone] KIM BOOTH HARD SPOUSE [facility] ([facility]) MEDICARE ADVANTAGE MCR ([facility]) Jul 28, 2021 [id number] MARINO BOOTH PATIENT Selected Encounter This section includes the information on record at [place] for the Encounter. Date/Time Encounter Type Encounter Description Reason Provider Source Apr 09, 2024 12:30 PM PSYTX W PT 45 MINUTES CAREGIVER SUPPORT PROGRAM ICD-10-CM F33.0 Major depressive disorder, recurrent, mild COLABELLA,MYA Yang IHE Encounter Template Text not used by [place] Assessments - Encounter Diagnoses This section includes the primary and secondary diagnoses documented for the Encounter. Date/Time Primary/Secondary Diagnosis Diagnosis Name Provider Source Apr 09, 2024 01:26 PM PRIMARY Major depressive disorder, recurrent, mild COLABELLA,MYA [facility] Apr 09, 2024 01:26 PM SECONDARY Anxiety disorder, unspecified COLABELLA,MYA A [facility] Apr 09, 2024 01:26 PM SECONDARY Dependent relative needing care at home MYA NUNEZ [facility] Plan of Treatment: Future Appointments [...] Appointment Type Appointme nt Facility Name Apr 23, 2024 02:30 PM AMBULATORY - NONE [facility] Apr 28, 2024 01:00 PM AM[facility]ULATORY [facility] NONE [facility] Apr 28, 2024 01:00 PM AM[facility]ATORY - NONE [facility] May 07, 2024 02:30 PM AMBULATORY - NONE [facility] May 14, 2024 02:30 PM AMBULATORY - NONE [facility] May 21, 2024 11:30 AM AMBULATORY - NONE [facility] May 21, 2024 11:30 AM AM[facility]ATORY - NONE [facility] May 21, 2024 02:30 PM AMBULATORY - NONE [facility] May 28, 2024 01:30 PM AMBULATORY - PSYCHIATRY [facility] May 28, 2024 02:30 PM AMBULATORY - NONE [facility] Jun 04, 2024 02:30 PM AMBULATORY - NONE [facility] Jun 08, 2024 12:30 PM AMBULATORY - NONE [facility] Jun 08, 2024 12:30 PM AM[facility]ULATORY - NONE [facility] Jun 11, 2024 02:30 PM AMBULATORY - NONE [facility] Jun 22, 2024 12:30 PM AMBULATORY - NONE [facility] Jun 22, 2024 12:30 PM AMBULATORY - NONE [facility] Jul 09, 2024 11:30 AM AMBULATORY - NONE [facility] Jul 09, 2024 11:30 AM AMBULATORY - NONE [facility] Jul 21, 2024 10:30 AM AMBULATORY - NONE [facility] Jul 21, 2024 10:30 AM AMBULATORY - NONE [facility] Encounter Notes: All associated encounter notes This section contains the clinical notes associated to the Encounter. Date/Time Encounter Note(s) Provider Source Apr 09, 2024 12:26 PM CAREGIVER CERTIFIC ATE: LOCAL TITLE: [facility] INDIVIDUAL PSYCHOTHERAPY NOTE STANDARD TITLE: CAREGIVER CERTIFICATE DATE OF NOTE: APR 09, 2024@12:26 ENTRY DATE: APR 09, 2024@12:26:58 AUTHOR: MYA NUNEZ COSIGNER: URGENCY: STATUS: COMPLETED Full note being entered in this CPRS system because provider currently is waiting on IT to fix access to [facility] CPRS system. [facility] Caregiver Psychotherapy Program - FOLLOW UP [facility] PSYCHOLOGY VISIT Two patient identifiers were utilized in order to ensure accuracy of patient identification. Encounter was conducted via Telehealth Modality. Verbal informed consent was obtained from the Caregiver at the time of the encounter. TYPE OF ENCOUNTER: VVC VISIT Psychotherapy LENGTH OF ENCOUNTER: 50 Minutes EVIDENCED BASED TREATMENT UTILIZED: Cognitive Behavioral Psychotherapy SUBJECTIVE PRESENTING COMPLAINT:The CG indicated that she feels that she has sacrificed for years financially and with caregiving toward her extended family and feeling resentful that they continue to want money from her and don't visit as often as she thinks is reasonable. She reported the family is friendly when she goes to their houses and that she is invited to the grandchildren events. She indicated that given her aversion to driving a motor vehicle she believes others should come to her. She reported continuing to meet with her coffee group, babysitting grandchildren last week, and enjoying her pets. SUICIDALITY/HOMICIDALITY: [X ] asymptomatic [ ] current [...] and commitments [X ] Personal, Cultural, or Congregation Beliefs for Self Preservation ASSESSMENT OF SUICIDE RISK:low ASSESSMENT OF HOMICIDE RISK:low MENTAL STATUS EXAMINATION WITH SAFETY ASSESSMENT/PLANNING: -Orientation: [...] MDD, recurrent, mild Anxiety Unspecified Care of [facility] with Cognitive and Emotional Impairments TREATMENT PLAN: [ ] Referral/Consultation: [ ] Watchful Waiting [X ] Psychotherapy Target goals:Explore patterns of dependency in family functioning and possible goals for improvement. Nye setting discussed as well as the CG being able to make changes to influence her happiness. [ ] sleep [ ] anxiety [ ] anger management [ ] mood [ ] relationship strain / communication RTC placed for f/u care. /abimael/ MYA NUNEZ Signed: 04/09/2024 13:26 MYA NUNEZ [facility]
--- OUTSIDE RECORDS SUMMARY | 2025-02-11 09:45 | XMS_ITS | Encounter Summary ---
Author Name [facility] [place] [facility] [place] Address [address] [place] [address] Care Team Providers Care Dispatcher Ship Pilot Name Role Phone WALDEMAR PRUITT Primary Care [...] MEDICARE ADVANTAGE MCR ([facility]) Oct 28, 2023 [id number] [phone] MARINO BOOTH PATIENT -FO R-LIFE [facility] Jul 28, 2021 [facility] LIFE [id number] [phone] MARINO BOOTH PATIENT -FO R-LIFE [facility] Jul 28, 2021 FOR LIFE [id number] [phone] KIM BOOTH HARD SPOUSE [facility] ([facility]) MEDICARE ADVANTAGE MCR ([facility]) Jul 28, 2021 [id number] MARINO BOOTH PATIENT Selected Encounter This section includes the information on record at [place] for the Encounter. Date/Time Encounter Type Encounter Description Reason Pro vider Source Jun 08, 2024 12:30 PM Outpatient Encounter ADMIN PAT ACTIVTIES (MASNONCT) IHE Encounter Template Text not used by [place] Plan of Treatment: Future Appointments (+ 6 months) and Future Tests (+/- 45 days) The Plan of Treatment section includes future care activities for the patient from all [place] treatmentfacilities. This section includes future appointments and future orders which are active, pending or scheduled. Future Appointments This section includes appointments that were scheduled to occur 6 months from the date of the Encounter, up to a maximum of 20 appointments. The data comes from all [place] treatment facilities. Appointment Date/Time Appointment Type Appointme nt Facility Name Jun 11, 2024 02:30 PM AMBULATORY - NONE [facility] Jun 22, 2024 12:30 PM [facility] Jun 22, 2024 12:30 PM [facility]ORY [facility] NONE [facility] Jul 09, 2024 11:30 AM AMBULATORY [facility] NONE [facility] Jul 09, 2024 11:30 AM [facility] Jul 21, 2024 10:30 AM AM[facility]ULATORY [facility] Jul 21, 2024 10:30 AM [facility]ATORY - NONE [facility] Aug 06, 2024 10:00 AM AM[facility]ULATORY [facility] Aug 13, 2024 11:30 AM [facility]ORY - NONE [facility] Aug 27, 2024 10:30 AM [facility]AT[facility] Aug 27, 2024 10:30 AM [facility] - NONE [facility] Sep 15, 2024 10:00 AM AM[facility]ULATORY [facility] Sep 15, 2024 10:00 AM [facility]ORY - NONE [facility] Oct 08, 2024 11:00 AM AM[facility]ULATORY [facility] Oct 08, 2024 11:00 AM [facility]ORY [facility] Nov 05, 2024 12:00 PM [facility]ULAT[facility] Nov 05, 2024 12:00 PM AMBULATORY - [facility] [place] [facility] Nov 09, 2024 10:00 AM AMBULATORY - MEDICINE [facility] Nov 17, 2024 10:00 AM AMBULATORY - NONE [facility] Nov 17, 2024 10:00 AM AMBULATORY - PSYCHIATRY [facility] Encounter Notes: All associated encounter notes This section contains the clinical notes associated to the Encounter. Date/Time Encounter Note(s) Provider Source Jun 08, 2024 08:33 AM CAREGIVER CERTIFIC ATE: LOCAL TITLE: [facility] ADMINISTRATIVE NOTE STANDARD TITLE: CAREGIVER CERTIFICATE DATE OF NOTE: JUN 08, 2024@08:33 ENTRY DATE: JUN 08, 2024@08:33:50 AUTHOR: MYA NUNEZ COSIGNER: URGENCY: STATUS: COMPLETED VISN [facility] - FOLLOW UP [facility] PSYCHOLOGY VISIT Two patient identifiers were utilized in order to ensure accuracy of patient identification. Encounter was conducted via Telehealth Modality. Verbal informed consent was obtained from the Caregiver at the time of the encounter. TYPE OF ENCOUNTER: VV VISIT Psychotherapy LENGTH OF ENCOUNTER: 60 Minutes EVIDENCED BASED TREATMENT UTILIZED: Cognitive Behavioral Psychotherapy SUBJECTIVE PRESENTING COMPLAINT:CG indicated that she is coping with multiple complex challenges. She reported that her is engaging in repetitive innapropriate behaviors that irritate her and make others uncomfortable when they come to the home. She reported discussing this with his medical providers and no solutions have been identified. She reported that her only leaves the home for medical appointments at this point and that he is resistant to go anywhere else. She reported he has a history of OCD and hoarding behaviors, but that they are amplified now and they interfere with her ability to accomplish tasks. She said excercise and cleaning are problematic given the level of monitoring her needs. She indicated that she plans to priortize her respite time to schedule herself medical appointments. SUICIDALITY/HOMICIDALITY: [X ] asymptomatic [ ] current [...] and commitments [X ] Personal, Cultural, or Sabianist Beliefs for Self Preservation ASSESSMENT OF SUICIDE [...] ASSESSMENT/PLANNING: -Orientation: person, place, time -Mood was irritable -Affect: congruent with stated mood and symptoms. [...] Psychotherapy Target goals:CG is working toward increasing socialization/connection with two visits a week with her coffee group and improved self care via more medical appointments for herself. The impact of her 's behavior on visitors in the home explored. [ ] sleep [ ] anxiety [ ] anger management [ ] mood [ ] relationship strain / communication RTC placed for f/u care. /es/ MYA NUNEZ Signed: 06/08/2024 14:10 MYA NUNEZ [facility]
--- OUTSIDE RECORDS SUMMARY | 2025-02-11 09:45 | XMS_ITS | Encounter Summary ---
Author Name [facility] [place] [facility] [place] Address [address] [place] [address] Care Team Providers Care Security Police Name Role Phone WALDEMAR PRUITT Primary Care [...] [facility] ([facility]) MEDICARE ADVANTAGE MCR ([facility]) Oct 28, 2023 [id number] [phone] MARINO BOOTH PATIENT -FO R-LIFE [facility] RE [facility] LIFE [facility] Jul 28, 2021 FOR LIFE [id number] [phone] MARINO BOOTH PATIENT -FO R-LIFE [facility] RE [facility] LIFE [facility] Jul 28, 2021 FOR LIFE [id number] [phone] BO[address] HARD SPOU[address] [facility] ([facility]) MEDICARE ADVANTAGE MCR ([facility]) Jul 28, 2021 [id number] MARINO BOOTH PATIENT Selected Encounter This section includes the information on record at [place] for the Encounter. Date/Time Encounter Type Encounter Description Reason Provider Source Jun 08, 2024 12:30 PM PSYTX W PT 60 MINUTES CAREGIVER SUPPORT PROGRAM ICD-10-CM F33.0 Major depressive disorder, recurrent, mild COLABELLA,MYA Yang IHE Encounter Template Text not used by [place] Assessments - Encounter Diagnoses This section includes the primary and secondary diagnoses documented for the Encounter. Date/Time Primary/Secondary Diagnosis Diagnosis Name Provider Source Jun 08, 2024 01:46 PM PRIMARY Major depressive disorder, recurrent, mild COLABELLA,MYA [place] [facility] Jun 08, 2024 01:46 PM SECONDARY Anxiety disorder, unspecified COLABELLA,MYA A [place] [facility] Jun 08, 2024 01:46 PM SECONDARY Dependent relative needing care at home MYA NUNEZ [facility] Plan of Treatment: Future [...] 11, 2024 02:30 PM [facility] Jun 22, 2024 12:30 PM AMBULATORY - [...] 15, 2024 10:00 AM AMBULATORY - NONE [facility] Sep 15, 2024 10:00 AM AMBULATORY - NONE [facility] Oct 08, 2024 11:00 AM AMBULATORY - NONE [facility] Oct 08, 2024 11:00 AM AMBULATORY - NONE [facility] Nov 05, 2024 12:00 PM AMBULATORY - NONE [facility] Nov 05, 2024 12:00 PM AMBULATORY - PS[facility]CHIATRY [facility] [place] Nov 09, 2024 10:00 AM AMBULATORY - MEDICINE [facility] Nov 17, 2024 10:00 AM AMBULATORY - NONE [facility] Nov 17, 2024 10:00 AM AMBULATORY - PS[facility]CHIATRY [facility] [place] [facility] Encounter Notes: All associated encounter notes This section contains the clinical notes associated to the Encounter. Date/Time Encounter Note(s) Provider Source Jun 08, 2024 07:49 AM CAREGIVER CERTIFIC ATE: LOCAL TITLE: [facility] INDIVIDUAL PSYCHOTHERAPY NOTE STANDARD TITLE: CAREGIVER CERTIFICATE DATE OF NOTE: JUN 08, 2024@07:49 ENTRY DATE: JUN 08, 2024@07:50:05 AUTHOR: MYA NUNEZ EXP COSIGNER: URGENCY: STATUS: COMPLETED The telehealth encounter was conducted with the in the [facility]) system today . Please see [facility] for progress note, clinical reminders, and patient orders. /abimael/ MYA NUNEZ Signed: 06/08/2024 13:46 MYA NUNEZ [facility]
--- OUTSIDE RECORDS SUMMARY | 2025-02-11 09:45 | XMS_ITS | Encounter Summary ---
Author Name [facility] [place] Organization [place] Address [address] [place] [address] Care Team Providers Care Forest Fire Fighter Name Role Phone WALDEMAR PRUITT Primary Care [...] [place] [facility] ([place]) MEDICARE ADVANTAGE MCR ([facility]) Oct 28, 2023 [id number] [phone] MARINO BOOTH PATIENT -FO R-LIFE [facility] RE FOR LIFE [facility] Jul 28, 2021 FOR LIFE [id number] [phone] MARINO BOOTH PATIENT -FO R-LIFE TRICA RE FOR LIFE [facility] Jul 28, 2021 FOR LIFE [id number] [phone] KIM BOOTH HARD SPOUSE [facility] ([facility]) MEDICARE ADVANTAGE MCR ([facility]) Jul 28, 2021 [id number] MARINO BOOTH PATIENT Selected Encounter This section includes the information on record at [place] for the Encounter. Date/Time Encounter Type Encounter Description Reason Pro vider Source Jan 21, 2025 10:00 AM Outpatient Encounter ADMIN PAT ACTIVTIES (MASNONCT) IHE Encounter Template Text not used by [place] Plan of Treatment: Future Appointments (+ 6 months) and Future Tests (+/- 45 days) The Plan of Treatment section includes future care activities for the patient from all [place] treatmentfacilities. This section includes future appointments and future orders which are active, pending or scheduled. Future Appointments This section includes appointments that were scheduled to occur 6 months from the date of the Encounter, up to a maximum of 20 appointments. The data comes from all [place] treatment facilities. Appointment Date/Time Appointment Type Appointme nt Facility Name Jan 26, 2025 02:00 PM AMBULATORY - NONE [facility] Jan 26, 2025 02:00 PM AMBULATORY - PSYCHIATRY [facility] [place] [facility] Feb 16, 2025 10:00 AM AMBULATORY - PSYCHIATRY [facility] Feb 16, 2025 10:00 AM AMBULATORY - NONE [facility] March 23, 2025 12:30 PM AMBULATORY - PSYCHIATRY [facility] Encounter Notes: All associated encounter notes This section contains the clinical notes associated to the Encounter. Date/Time Encounter Note(s) Provider Source Jan 21, 2025 10:01 AM CAREGIVER CERTIFIC ATE: LOCAL TITLE: [facility] INDIVIDUAL PSYCHOTHERAPY NOTE STANDARD TITLE: CAREGIVER CERTIFICATE DATE OF NOTE: JAN 21, 2025@10:01 ENTRY DATE: JAN 21, 2025@10:01:03 AUTHOR: RICHARD GRIDER EXP COSIGNER: URGENCY: STATUS: COMPLETED [place] [id number] CLINICAL RESOURCE [facility] - FOLLOW UP PSYCHOLOGY VISIT VIRTUAL PSYCHOTHERAPY PROGRAM FOR CAREGIVERS ([facility]) Patient identity was verified. Encounter was conducted via Telehealth Modality. Verbal informed consent was obtained from the Caregiver at the time of the encounter. CAPS-Lock procedure was completed to secure the virtual medical room. TYPE OF ENCOUNTER: VVC VISIT Psychotherapy LENGTH OF ENCOUNTER: 49 minutes DATE: Dec TREATMENT GOAL(S): To identify strategies for improving connection with self and others and increase well-being. STRENGTHS: The CG appears to be amiable and motivated for treatment at this time. CONTENT/ISSUES ADDRESSED: The CG presented to this session on time. She discussed recent stressors, including needing to update her 's POA, which expires on the of next month. She reports her step-daughter, Gabby, is helping her navigate this process. She reported feeling hopeful about her medication changes but acknowledged it is too soon to tell if her mood is improved. She shared difficulties finding motivation for basic activities around the house, including organizing and sorting things. We discussed her motivation, hopes, and barriers to tackling these projects. The CG acknowledged fear of failure has always held her back. She also shared a desire for the company of female friends, thwarted by fears of vulnerability. We discussed behavioral activation and identified a SMART goal of contacting her ENT doctor about throat discomfort in recovery from recent illness. Reinforced the CG's strengths and reflected progress. INTERVENTIONS UTILIZED: Mindfulness-Based Cognitive Therapy (MBCT). Oil Pumper guided the client's self-exploration and encouraged space for reflection and insight. Explored interpersonal dynamics in family relationships. Normalized stressors and reflected strengths. Elicited coping strategies. RESPONSE TO INTERVENTION: No adverse reactions. The client was engaged and collaborative throughout this session. MENTAL STATUS EXAMINATION WITH SAFETY ASSESSMENT/PLANNING: -Orientation: person, place, time -Mood was euthymic -Affect: congruent with stated mood and symptoms -Psychomotor: was relatively calm and responsive. -Speech: [...] plans and commitments [x] Personal, Cultural, or Sikhism Beliefs for Self-Preservation ASSESSMENT OF SUICIDE RISK: Low ASSESSMENT OF HOMICIDE RISK: Low IMPRESSION (DSM5 Criteria): Persistent Depressive Disorder (dysthymia; F43.1) Major Depressive Disorder, recurrent, moderate (F33.1) Anxiety, unspecified (F41.9) Dependent relative needing care at home (Z63.6) TREATMENT PLAN: Continue weekly frequency of sessions given the caregiver's increase in depressive symptoms. RTC on 01/26 @ 1400. /abimael/ RICHARD GRIDER PSYCHOLOGIST Signed: 01/21/2025 11:46 RICHARD GRIDER [facility]
--- OUTSIDE RECORDS SUMMARY | 2025-02-11 09:46 | XMS_ITS | Encounter Summary ---
Author Organization [facility] Healthcare Address [address] [place] [address] Care Team Providers Care Environmental Services Assistant Name Role Phone Gerald De La Cruz MD Primary Care Provider [phone] Encounter Details Date Type Department Care Team (Late st Contact Info) Description 01/05/2025 Results Follow-Up [facility] Medical [facility] Primary Care at [address] [id number] Gerald De La Cruz MD [address] [place] [address] [address] [place] [address] Social History Tobacco Use Types Packs/Day Years Used Date Smoking Tobacco: Never Cigarettes Passive Smoke Exposure: Never Smokeless Tobacco: Never Alcohol Use Standard [...] on file 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
--- OUTSIDE RECORDS SUMMARY | 2025-02-11 09:46 | XMS_ITS ---
Author Name [facility] [place] Address [address] [place] [address] Care Team Providers Care Steward/Stewardess Second Name Role Phone WALDEMAR PRUITT Primary Care [...] Member ID Insurance Provider's Telephone Number Policy Badlwin's Name Patient's Relationship to Policy Baldwin [employer] (WNR) MEDICARE ADVANTAGE MCR ([facility]) Oct 28, 2023 [id number] [phone] MARINO BOOTH PATIENT -FO R-LIFE [facility] RE FOR LIFE [facility] Jul 28, 2021 FOR LIFE [id number] [phone] MARINO BOOTH PATIENT -FO R-LIFE [facility]ICA RE FOR LIFE [facility] Jul 28, 2021 FOR LIFE [id number] [phone] KIM BOOTH HARD SPOUSE [facility] ([facility]) MEDICARE ADVANTAGE MCR ([facility]) Jul 28, 2021 [id number] MARINO BOOTH PATIENT Selected Encounter This section includes the information on record at [place] for the Encounter. Date/Time Encounter Type Encounter Description Reason Provider Source May 28, 2024 01:30 PM OFFICE O/P EST MOD 30 MIN [facility] - IND ICD-10-CM F33.41 Major depressive disorder, recurrent, in partial remission HARSHILCHOCO [place] Encounter Template Text not used by [place] Assessments - Encounter Diagnoses This section includes the primary and secondary diagnoses documented for the Encounter. Date/Time Primary/Secondary Diagnosis Diagnosis Name Provider Source May 29, 2024 07:23 AM PRIMARY Major depressive disorder, recurrent, in partial remission CHOCO CHUA [facility] May 29, 2024 07:23 AM SECONDARY Generalized anxiety disorder TOCCHOCO REYES [facility] May 29, 2024 07:23 AM SECONDARY Primary insomnia CHOCO CHUA [facility] Plan of Treatment: Future Appointments (+ 6 months) and Future Tests (+/- 45 days) The Plan of Treatment section includes future care activities for the patient from all [place] [facility] This section includes future appointments and future orders which are active, pending or scheduled. Future Appointments This section includes appointments that were scheduled to occur 6 months from the date of the Encounter, up to a maximum of 20 appointments. The data comes from all [place] treatment facilities. Appointment Date/Time Appointment Type Appointme nt Facility Name Jun 04, 2024 02:30 PM AM[facility]ULATORY - NONE [facility] Jun 08, 2024 12:30 PM [facility]ONE [facility] Jun 08, 2024 12:30 PM [facility]ONE [facility] Jun 11, 2024 02:30 PM AMBULATORY - NONE [facility] Jun 22, 2024 12:30 PM [facility]ULATORY [facility]ONE [facility] Jun 22, 2024 12:30 PM [facility]ORY - NONE [facility] Jul 09, 2024 11:30 AM AM[facility]ULATORY - NONE [facility] Jul 09, 2024 11:30 AM [facility]ULATORY - NONE [facility] Jul 21, 2024 10:30 AM [facility]ULATORY [facility] NONE [facility] Jul 21, 2024 10:30 AM [facility]ORY - [facility]ONE [facility] Aug 06, 2024 10:00 AM AMBULATORY - NONE [facility] Aug 13, 2024 11:30 AM AMBULATORY - NONE [facility] Aug 27, 2024 10:30 AM [facility]ULATORY [facility]ONE [facility] Aug 27, 2024 10:30 AM AMBULATORY - NONE [facility] [place] Sep 15, 2024 10:00 [facility] Sep 15, 2024 10:00 AM [facility]ONE [facility] Oct 08, 2024 11:00 AM [facility]ULAT[facility]ONE [facility] Oct 08, 2024 11:00 AM AMBULATORY - NONE [facility] Nov 05, 2024 12:00 PM [facility]ULAT[facility] - NONE [facility] Nov 05, 2024 12:00 PM [facility] Encounter Notes: All associated encounter notes This section contains the clinical notes associated to the Encounter. Date/Time Encounter Note(s) Provider Source May 28, 2024 01:33 PM PSYCHIATRY NOTE: LOCAL TITLE: PSYCHIATRY [facility] STANDARD TITLE: PSYCHIATRY NOTE DATE OF NOTE: MAY 28, 2024@13:33 ENTRY DATE: MAY 28, 2024@13:33:59 AUTHOR: GARY CHUA COSIGNER: URGENCY: STATUS: COMPLETED [facility] - MEDICATION MANAGEMENT Name..................MIS RAMOS Age...................68 Sex...................DONAL AUGUSTINEN...................[id number] [phone] Service Connection.... Service Connected: NO Rated Disabilities: NONE STATED PROBLEM LIST: 1) Hypertension 2) Vitamin D deficiency 3) Spasm of back muscles 4) Low back pain 5) Right side sciatica 6) Gastritis 7) Chronic pain of left foot 8) Recurrent major depressive episodes, moderate 9) Anxiety 10) Gastro-esophageal reflux disease without esophagitis 11) Allergic rhinitis 12) Depression ([facility] [id number]) 13) Caregiver role strain 14) Insomnia OUTPATIENT [...] / 85.5 kg. on FEB 24, 2021@13:04:05 [facility]: Consent: verbally consents to a clinical video telehealth follow-up appointment. Address: [place], [place] [address] Phone number: Survey: patient alone Lock: The virtual conference room was locked. PAST PSYCHIATRIC MEDICATION TRIALS: vet cannot recall BRIEF SUMMARY OF PREVIOUS MH HISTORY: History of depression and anxiety in the past as well as insomnia PAST PSYCHIATRIC HISTORY: * Prior hospitalizations: Denies * Prior suicide attempts: Denies Currently sees jaz CARRASQUILLO at [facility] [place] for her psychiatric prescriptions FAMILY HISTORY: Question daughter with bipolar disorder but denies other relevant family psychiatric history. SUBSTANCE USE: * Tobacco: Denies use * EtOH: Denies use * Illicit drugs: Denies use SOCIAL HISTORY: for 35+ years. She actually went through a divorce with this individual for about 5 years and remarried. They have 2 biological grown daughters. She has 1 stepdaughter. [place] is currently retired. 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 Denies significant physical, emotional, sexual trauma in childhood or . [facility]: Consent: verbally consents to a clinical video telehealth follow-up appointment. Address: [address] [place] [address] Phone number:[phone] Survey: patient alone Lock: The virtual conference room was locked. Emergency contact redesignated as her daughter Rosio Hurtado who could be reached at [phone] per . Confirm number twice. Sent to eligibility for update. Veterans address changes as well. Sent this to nursing and scheduling for update. Shilpa Last visit: reports that she is pretty good. She has started therapy in the interim and has found it very helpful. Her daughter came in from [place] and they went through a storage unit. Vet notes some muscle aches and pains after and requests lidocaine patches stating she has been using them and finds these very beneficial. States that everything else is going good. She is meeting with her friends 2 or 3 times a week. She has continued her medications. Self adjusted trazodone to 200 mg nightly and is sleeping well. Denies PEYTON HERNANDEZ, AVH. TODAY: [place] again reports that she is doing well. She has continued with her morning coffee group and found another individual whose is going through beginning stages of dementia. She finds it helpful for herself and this other individual to talk through things. She has continued medications with good result. She was actually babysitting her 4 grandchildren today and handling it quite well. She agrees with continuation of medicines without changes. Denies SI, HI, AVH MENTAL STATUS EXAM: Appearance: appears stated age [...] stressors) Primary insomnia Caregiver burnout TREATMENT PLAN: 05/28/2024 Continue bupropion 150 mg XL Continue Effexor XR 150 mg daily Continue trazodone 100-200 mg nightly Continue melatonin 5 mg at bedtime Continue with psychotherapy Continue with socialization with friends Follow-up 3 months or sooner if needed 02/26/2024 Supply of lidocaine patches provided, discussed [...] nightly Continue melatonin 5 mg at bedtime is hoping to get reestablished with [email or web address]. She has found the options to get involved very interesting and would like a phone call from somebody from [email or web address]. I have made an addendum to the most recent [employer] note relating this request Follow-up 2-3 months [...] 5-6 weeks or sooner if needed 09/17/2023 Herbie appears to have forgotten about starting bupropion. [...] she has them correct Continue with therapy. Issacmatias MARTÍNEZ group is beneficial Follow-up in about 6 weeks or sooner if needed 07/30/2023 Continue bupropion 150 XL prescribed through [facility]. Herbie is going to continue Effexor 150 mg daily by outside provider and trazodone 150 mg at bedtime by outside provider. She is going to discuss having those medicines prescribed through us with her outside provider in about a month at their visit. Continue with caregiver support Continue with psychotherapy Follow-up about 6 weeks 06/11/2023 -Herbie will continue taking her home Effexor 150 [...] We will continue to work with this herbie and can prescribe medication if she does not decide to continue with new established provider at her outside location. -Herbie believes she would benefit from therapy. She is struggling with stress of moving houses and of 35+ years now with significant dementia. She has caregiver burnout, feels overwhelmed with new responsibilities, and potentially starting with palliative care. Consult has been placed. -Follow-up approximately 6 weeks -Suicide screen conducted today 06/11/2023 Suicide Screen: C-SSRS Screening [place]-Suicide Severity Rating Scale (C-SSRS Screener) 1. Over the past month, have you wished you were or wished you could go to sleep and not wake up? No 2. Over the past month, have you had any actual thoughts of killing yourself? No 3. Over the past month, have you been thinking about how you might do this? Response not required due to responses to other questions. 4. Over the past month, have you had these thoughts and had some intention of acting on them? Response not required due to responses to other questions. 5. Over the past month, have you started to work out or worked out the details of how to kill yourself? Response not required due to responses to other questions. 6. If yes, at any time in the past month did you intend to carry out this plan? Response not required due to responses to other questions. 7. In your lifetime, have you ever done anything, started to do anything, or prepared to do anything to end your life (for example, collected pills, obtained a gun, gave away valuables, went to the roof but didn't jump)? No 8. If YES, was this within the past 3 months? Response not required due to responses to other questions. /abimael/ GARY CHUA Staff Physician / Psychiatrist [facility] [place] Signed: 05/29/2024 07:23 GARY CHUA [facility]
--- OUTSIDE RECORDS SUMMARY | 2025-02-11 09:46 | XMS_ITS | Encounter Summary ---
Author Name [place] Address [address] [place] [address] Care Team Providers Care Supervisor Painting Department Name Role Phone WALDEMAR PRUITT Primary Care [...] Baldwin [employer] (WNR) MEDICARE ADVANTAGE MCR ([facility]) Oct 28, 2023 [id number] [phone] MARINO BOOTH PATIENT -FO R-LIFE TRICA RE FOR LIFE [facility] Jul 28, 2021 FOR LIFE [id number] MARINO BOOTH PATIENT -FO R-LIFE TRICA RE FOR LIFE [facility] Jul 28, 2021 FOR LIFE [id number] [phone] KIM BOOTH HARD SPOUSE [facility] ([facility]) MEDICARE ADVANTAGE MCR ([facility]) Jul 28, 2021 [id number] MARINO BOOTH PATIENT Selected Encounter This section includes the information on record at [place] for the Encounter. Date/Time Encounter Type Encounter Description Reason Provider Source Dec 22, 2024 01:00 PM PSYTX W PT 45 MINUTES CAREGIVER SUPPORT PROGRAM ICD-10-CM F34.1 Dysthymic disorder RICHARD GRIDER [facility] Encounter Template Text not used by [place] Assessments - Encounter Diagnoses This section includes the primary and secondary diagnoses documented for the Encounter. Date/Time Primary/Secondary Diagnosis Diagnosis Name Provider Source Dec 22, 2024 02:01 PM PRIMARY Dysthymic disorder RICHARD GRIDER [facility] Plan of Treatment: Future Appointments (+ 6 months) and Future Tests (+/- 45 days) The Plan of Treatment section includes future care activities for the patient from all [place] [facility]. This section includes future appointments and future [...] 07, 2025 10:00 AM AMBULATORY - NONE [facility] Jan 07, 2025 10:00 AM AMBULATORY - [facility]IATRY [facility] Jan 11, 2025 01:30 PM AMBULATORY - NONE [facility] Jan 11, 2025 01:30 PM AMBULATORY - [facility]IATRY [facility] Jan 21, 2025 10:00 AM AMBULATORY - NONE [facility] Jan 21, 2025 10:00 AM AMBULATORY - [facility]IATRY [facility] Jan 26, 2025 02:00 PM AMBULATORY - [facility] Jan 26, 2025 02:00 PM AMBULATORY - PSYCHIATRY [facility] Feb 16, 2025 10:00 AM AMBULATORY - PSYCHIATRY [facility] Feb 16, 2025 10:00 AM AMBULATORY - NONE [facility] March 23, 2025 12:30 PM AMBULATORY - [facility]RY [facility] Encounter Notes: All associated encounter notes This section contains the clinical notes associated to the Encounter. Date/Time Encounter Note(s) Provider Source Dec 22, 2024 12:32 PM CAREGIVER CERTIFIC ATE: LOCAL TITLE: [facility] INDIVIDUAL PSYCHOTHERAPY NOTE STANDARD TITLE: CAREGIVER CERTIFICATE DATE OF NOTE: DEC 22, 2024@12:32 ENTRY DATE: DEC 22, 2024@12:32:22 AUTHOR: RICHARD GRIDER EXP COSIGNER: URGENCY: STATUS: COMPLETED The telehealth encounter was conducted with the caregiver in [address] system today. Please see [employer] Viewer for progress note, clinical reminders, and patient orders. - Telehealth Help Desk or [phone] /es/ RICHARD GRIDER PSYCHOLOGIST Signed: 12/22/2024 14:01 RICHARD GRIDER [facility]
--- OUTSIDE RECORDS SUMMARY | 2025-02-11 09:46 | XMS_ITS | Encounter Summary ---
Author Name [place] Address [address] [place] [address] Care Team Providers Care Instrument Maker Name Role Phone WALDEMAR PRUITT Primary Care [...] Baldwin [employer] (WNR) MEDICARE ADVANTAGE MCR ([facility]) Oct 28, 2023 [id number] [phone] MARINO BOOTH PATIENT -FO R-LIFE TRICA RE FOR LIFE [facility] Jul 28, 2021 FOR LIFE [id number] MARINO BOOTH PATIENT -FO R-LIFE TRICA RE FOR LIFE [facility] Jul 28, 2021 FOR LIFE [id number] [phone] KIM BOOTH HARD SPOUSE [facility] ([facility]) MEDICARE ADVANTAGE MCR ([facility]) Jul 28, 2021 [id number] MARINO BOOTH PATIENT Selected Encounter This section includes the information on record at [place] for the Encounter. Date/Time Encounter Type Encounter Description Reason Pro vider Source Jun 22, 2024 12:30 PM Outpatient Encounter ADMIN PAT ACTIVTIES (MASNONCT) IHE Encounter Template Text not used by [place] Plan of Treatment: Future Appointments (+ 6 months) and Future Tests (+/- 45 days) The Plan of Treatment section includes future care activities for the patient from all [place] treatmentfacilities. This section includes future appointments and future orders which are active, pending or scheduled. Future Appointments This section includes appointments that were scheduled to occur 6 months from the date of the Encounter, up to a maximum of 20 appointments. The data comes from all [place] treatment facilities. Appointment Date/Time Appointment Type Appointme nt Facility Name Jul 09, 2024 11:30 AM AMBULATORY - NONE [facility] Jul 09, 2024 11:30 AM AMBULATORY - NONE [facility] [place] Jul 21, 2024 10:30 AM [facility] Jul 21, 2024 10:30 AM AMBULATORY - NONE [facility] Aug 06, 2024 10:00 AM [facility] Aug 13, 2024 11:30 AM AMBULATORY - NONE [facility] Aug 27, 2024 10:30 AM AMBULATORY - NONE [facility] Aug 27, 2024 10:30 AM AMBULATORY - NONE [facility] [place] Sep 15, 2024 10:00 AM AMBULATORY - NONE [facility] Sep 15, 2024 10:00 AM AMBULATORY - NONE [facility] [place] [facility] Oct 08, 2024 11:00 AM AMBULATORY - NONE [facility] Oct 08, 2024 11:00 AM AMBULATORY - NONE [facility] Nov 05, 2024 12:00 PM AMBULATORY - NONE [facility] Nov 05, 2024 12:00 PM AMBULATORY - [facility]AT[facility] Nov 09, 2024 10:00 AM [facility] Nov 17, 2024 10:00 AM AMBULATORY - NONE [facility] Nov 17, 2024 10:00 AM AMBULATORY - [facility]IATRY [facility] Nov 23, 2024 02:30 PM AMBULATORY - PS[facility]CHIATRY [facility] Dec 07, 2024 01:00 PM AMBULATORY - NONE [facility] Dec 07, 2024 01:00 PM AMBULATORY - PSYCHIATRY [facility] Encounter Notes: All associated encounter notes This section contains the clinical notes associated to the Encounter. Date/Time Encounter Note(s) Provider Source Jun 22, 2024 09:38 AM CAREGIVER CERTIFIC ATE: LOCAL TITLE: [facility] INDIVIDUAL PSYCHOTHERAPY NOTE STANDARD TITLE: CAREGIVER CERTIFICATE DATE OF NOTE: JUN 22, 2024@09:38 ENTRY DATE: JUN 22, 2024@09:38:16 AUTHOR: MYA NUNEZ COSIGNER: URGENCY: STATUS: COMPLETED VISN 15 [facility] - FOLLOW UP [facility] PSYCHOLOGY VISIT Two patient identifiers were utilized in order to ensure accuracy of patient identification. Encounter was conducted via Telehealth Modality. Verbal informed consent was obtained from the Caregiver at the time of the encounter. TYPE OF ENCOUNTER: VVC VISIT Psychotherapy LENGTH OF ENCOUNTER: 58 Minutes EVIDENCED BASED TREATMENT UTILIZED: Cognitive Behavioral Psychotherapy SUBJECTIVE PRESENTING COMPLAINT:CG indicated that the went on a long walk in her neighborhood one day, which concerned her. She reported catching up to him and walking him home. She reported he also found a circular saw in the garage and tried to use it. She indicated that she and their aide took the saw away and hid it before he was able to use it. She indicated that otherwise he tends to stay in the house or just clean up their yard. She reported he never goes outside in the evenings or night. She reported that while he is awake she tries to ensure someone is always watching him and being very thankful for her respite. She indicated she is not interested in trying to walk with him. She reported frequently thinking about a to do list in her head and finding she talks herself out of completing tasks. She indicated that she did not think her had available other unsafe items in the garage. She indicated he does not know how to turn on her car. CG indicated that her brothers are supportive. SUICIDALITY/HOMICIDALITY: [ X] asymptomatic [ ] current [...] and commitments [X ] Personal, Cultural, or Shinto Beliefs for Self Preservation ASSESSMENT OF SUICIDE [...] ASSESSMENT/PLANNING: -Orientation: person, place, time -Mood was anxious/dysphoric -Affect: congruent with stated mood and symptoms. [...] ] Watchful Waiting [X ] Psychotherapy Target goals:Explored safety in the home given recent changes in behavior and ways to monitor vets location. Higher levels of care discussed and how safety can be addressed. CG encouraged to write down a to-do list and rank what is most important to her and easiest to complete. CG was encourage to try to complete at least one or two tasks by her next appointment. Healthy ways for the to work off energy explored. [ ] sleep [ ] anxiety [ ] anger management [ ] mood [X ] relationship strain / communication RTC placed for f/u care. /es/ MYA NUNEZ Signed: 06/22/2024 13:39 MYA NUNEZ [facility]
--- OUTSIDE RECORDS SUMMARY | 2025-02-11 09:46 | XMS_ITS | Encounter Summary ---
Author Name [facility] [place] Organization [facility] [place] [place] Address [address] [place] [address] Care Team Providers Care Head Holder Name Role Phone WALDEMAR PRUITT Primary Care [...] [facility] (WNR) MEDICARE ADVANTAGE MCR ([facility]) Oct 28, 2023 [id number] [phone] MARINO BOOTH PATIENT -FO R-LIFE TRICA RE FOR LIFE [facility] Jul 28, 2021 FOR LIFE [id number] [phone] MARINO BOOTH PATIENT -FO R-LIFE TRICA RE FOR LIFE [facility] Jul 28, 2021 FOR LIFE [id number] [phone] KIM BOOTH HARD SPOUSE [facility] ([facility]) MEDICARE ADVANTAGE MCR ([facility]) Jul 28, 2021 [id number] MARINO BOOTH PATIENT Selected Encounter This section includes the information on record at [place] for the Encounter. Date/Time Encounter Type Encounter Description Reason Pro vider Source Jan 07, 2025 10:00 AM Outpatient Encounter ADMIN PAT ACTIVTIES (MASNONCT) IHE Encounter Template Text not used by [place] Plan of Treatment: Future Appointments (+ 6 months) and Future Tests (+/- 45 days) The Plan of Treatment section includes future care activities for the patient [facility] [place] [facility]. This section includes future appointments and [...] 11, 2025 01:30 PM AMBULATORY - NONE [facility] Jan 11, 2025 01:30 PM AMBULATORY - PSYCHIATRY [facility] [place] [facility] Jan 21, 2025 10:00 AM AMBULATORY - NONE [facility] Jan 21, 2025 10:00 AM AMBULATORY - PSYCHIATRY [facility] [place] [facility] Jan 26, 2025 02:00 PM AMBULATORY - NONE [facility] Jan 26, 2025 02:00 PM AMBULATORY - PSYCHIATRY [facility] [place] [facility] Feb 16, 2025 10:00 AM AMBULATORY - PSYCHIATRY [facility] [place] [facility] Feb 16, 2025 10:00 AM AMBULATORY - NONE [facility] March 23, 2025 12:30 PM AMBULATORY - PSYCHIATRY [facility] Encounter Notes: All associated encounter notes This section contains the clinical notes associated to the Encounter. Date/Time Encounter Note(s) Provider Source Jan 07, 2025 10:04 AM CAREGIVER CERTIFIC ATE: LOCAL TITLE: VPPC INDIVIDUAL PSYCHOTHERAPY NOTE STANDARD TITLE: CAREGIVER CERTIFICATE DATE OF NOTE: JAN 07, 2025@10:04 ENTRY DATE: JAN 07, 2025@10:04:45 AUTHOR: RICHARD GRIDER COSIGNER: URGENCY: STATUS: COMPLETED VISN 15 CLINICAL RESOURCE [facility] - FOLLOW UP PSYCHOLOGY VISIT VIRTUAL PSYCHOTHERAPY PROGRAM FOR CAREGIVERS (VPPC) Patient identity was verified. Encounter was conducted via Telehealth Modality. Verbal informed consent was obtained from the Caregiver at the time of the encounter. CAPS-Lock procedure was completed to secure the virtual medical room. TYPE OF ENCOUNTER: VVC VISIT Psychotherapy LENGTH OF ENCOUNTER: 50 minutes DATE: Dec TREATMENT GOAL(S): To identify strategies for improving connection with self and others and increase well-being. STRENGTHS: The CG appears to be amiable and motivated for treatment at this time. CONTENT/ISSUES ADDRESSED: The CG presented to this session on time. She was distressed and tearful, sharing that she has been having a hard time and believes her depression has worsened. She endorsed crying every day, all the time. She discussed family stressors relating to dynamics between her daughters, Rosio and Nina, as well as distress about feeling that her daughters take advantage of her kindness and financial generosity. This clinician validated the CG's desire to support her family while encouraging her to find ways of setting clear boundaries with each family member to reduce the extent to which she feels they take advantage of her. Encouraged the CG to contact her prescriber to discuss adjusting her medication given exacerbation of depressive symptoms. The CG also disclosed sleep difficulties. This narrative writer provided education about the importance of a sleep schedule for consolidating disrupted sleep and improving mood and energy. The CG acknowledged that she wants to try setting her morning alarm so that she can get back into the routine of drinking her coffee and listening to the news before the day begins. The CG acknowledged she has been having other health concerns, including stomach problems, for which she will see her GI prvider next . She has a new patient appointment with a dentist in several months to address dental concerns. INTERVENTIONS UTILIZED: Mindfulness-Based Cognitive Therapy (MBCT). Sustain Engineer guided the client's self-exploration and encouraged space for reflection and insight. Explored interpersonal dynamics in family relationships. Normalized stressors and reflected strengths. Elicited coping strategies. RESPONSE TO INTERVENTION: No adverse reactions. The client was engaged and collaborative throughout this session. MENTAL STATUS EXAMINATION WITH SAFETY ASSESSMENT/PLANNING: -Orientation: person, place, time -Mood was dysphoric -Affect: tearful throughout the session -Psychomotor: was relatively calm and responsive. 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 RTC on 01/11 @ 1330. /es/ RICHARD GRIDER PSYCHOLOGIST Signed: 01/07/2025 15:50 RICHARD GRIDER [facility]
[2025-02-11 10:36] LABS: Estimated Glomerular Filt Rate > 60
== END 2025-02-11 09:16 | disposition home or self-care (01) ==
PROVIDERS: PCP Family Medicine; Visit Provider Nurse Practitioner
DX: K65.4 Sclerosing mesenteritis (principal); E27.8 Other specified disorders of adrenal gland; K59.00 Constipation, unspecified
CPT/HCPCS: 74177; Q9967

== ENCOUNTER 2025-08-12 10:08 | Outpatient (CLI) | payer MEDICARE, SELFPAY ==
--- OUTSIDE RECORDS SUMMARY | 2025-06-03 06:10 | XMS_ITS ---
Author Organization [facility] Address [address] [place], [place] [address] Care Team Providers Care Group Underwriter Name Role Phone CANDACE MORALES Unavailable [phone] Answer, Declined Unavailable Unavailable BRIDGET CARVER Unavailable [phone] REASON FOR VISIT strapping follow up Social History Tobacco Use: Social History Observation Description Date Details (start date - stop date) Never Smoker NA - NA Tobacco Control (Standard) Question Answer Notes Tobacco use: Nonsmoker Encounters Encounter Location Date Provider Diagnosis [facility] [place] [address] [place], [place] [id number] 06/03/2025 BRIDGET CARVER 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 06/03/2025 Lesion of plantar nerve, left lower limb (ICD-10 - G57.62) 06/03/2025 Pain in right foot (ICD-10 - M79.671) 06/03/2025 Left foot pain (ICD-10 - M79.672) Plan Of Treatment Treatment Notes Assessment Notes Neuroma of second interspace of right fo ot Orthotic Powerstep: Powerstep OTC orthotics were dispensed. Progress Notes * Padmini BOOTHaDOB:1955 (70 yo F)Acc No.[id number]:06/03/2025 Patient: Coty MEADE Provider: Roosevelt Carver DPM :1955 A ge:69 Y S ex:Female Date:06/03/2025 [facility] Subjective: * Chief Complaints: * 1 . Strapping follow up. * HPI: H PI: Follow Up Visit P atient presents for follow up visit for bilateral strapping f/u., Patient states their problem is, improving. Patient says the strappings really seemed to help., MA: estephania. * Medical History: A mike reflux, GERD, Bladder infections, Back Trouble, Psychiatric Disorder, High blood pressure. * Surgical History: H ysterectomy 2003, knee surgery 2007. * Social History: T obacco Use: T obacco Control (Standard) T obacco use: N onsmoker D rugs/Alcohol: D o you drink alcohol?: Yes, Socially. * Medications: N one Objective: * Vitals: * Examination: C onstitutional: Constitutional T he patient is awake, alert, well developed, well groomed and well nourished. . D ermatologic: Skin findings: S kin is warm, dry, supple with no breaks in the skin. . Nail pathology: N ails 1-5 bilateral are normal in appearance and thickness. No discoloration. . Ulcer: T here is no evidence of ulceration noted at this time . Hyperkeratotic Skin Lesion T here is no evidence of hyperkeratosis . M usculoskeletal: Muscle Strength M uscle strength is 5/5 in regards to dorsiflexion, plantarflexion, inversion, and eversion in bilateral lower extremities. . Foot Structure T he foot structure is noted to be normal bilaterally . Pain on palpation 3 rd interspace bilateral. Gait T here is normal gait noted . N eurologic: Muscle power: 5 /5 bilaterally . Gross sensation G ross sensation is intact to light touch. . V ascular: Dorsalis pedis pulse: 2 /4 bilateral . Posterior tibial pulse: 2 /4 bilaterally . Capillary refill: l ess than 3 seconds bilaterally . Temperature gradient: w ithin normal limits . ? Assessment: * Assessment: 1. N euroma of second interspace of right foot - G57.61 (Primary) 2 . L esion of plantar nerve, left lower limb - G57.62 3 . P ain in right foot - M79.671? 4. L eft foot pain - M79.672 Plan: * Treatment: * Preventive Medicine: Screenings: F all risk screening Fall Risk Assessment: N o falls in the past year * Billing Information: * Visit Code: 44394 Office Visit, Est Pt., Level 3. * Procedure Codes: * Electronic signature of BRIDGET CARVER DPM on 08/12/2025 at 11:34 AM CDT Sign off status: Pending * Provider: Roosevelt Carver DPM Date: 0 06/03/2025 Generated for Kevin figueroa/Jordan/Sissy on: 1 11:34 AM CDT History and Physical Notes * HPI (History of Present Illness) Category Sub-Category Detail Notes Category Not es HPI Follow Up Visit Patient presents for follow up visit for bilateral strapping f/u., Patient states their problem is, improving. Patient says the strappings really seemed to help., MA: mf Examination Category Sub-Category Detail Notes Category Not es Constitutional Constitutional The patient is a wake, alert, well developed, well groomed and well nourished. Dermatologic Skin findings: Skin is warm, dr y, supple with no breaks in the skin. Nail pathology: Nails 1-5 bilateral are normal in appearance and thickness. No discoloration. Ulcer: There is no evidence of ulceration noted at this time Hyperkeratotic Skin Lesion There is no e vidence of hyperkeratosis Musculoskeletal Muscle Strength Muscle strength is 5/5 in regards to dorsiflexion, plantarflexion, inversion, and eversion in bilateral lower extremities. Pain on palpation 3rd interspace bilat eral Foot Structure The foot structure i s noted to be normal bilaterally Gait There is normal gait noted Neurologic Muscle power: 5/5 bilaterally Gross sensation Gross sensation is i ntact to light touch. Vascular Dorsalis pedis pulse: 2/4 bilateral Posterior tibial pulse: 2/4 bilaterally Capillary refill: less than 3 seconds bilaterally Temperature gradient: within normal limi ts
--- OUTSIDE RECORDS SUMMARY | 2025-07-08 05:40 | XMS_ITS ---
Author Organization [facility] Address [address] [place], [place] [id number] Care Team Providers Care Actuarial Trainee Name Role Phone CANDACE MORALES Unavailable [phone] Answer, Declined Unavailable Unavailable BRIDGET CARVER Unavailable [phone] REASON FOR VISIT powerstep f/u Encounters Encounter Location Date Provider Diagnosis [facility] [place] [address] [place], [place] [phone] 07/08/2025 BRIDGET CARVER Plan Of Treatment No Information Progress Notes * Prashanth BOOTHB:1955 (70 yo F)Acc No.[id number]:07/08/2025 Patient: Coty MEADE Provider: Roosevelt Carver DPM :1955 A ge:69 Y S ex:Female Date:07/08/2025 [facility] [facility] Subjective: * Chief Complaints: * 1 . Powerstep f/u. * Medical History: Objective: * Vitals: Assessment: Plan: * Treatment: * Billing Information: * Visit Code: * Procedure Codes: * Electronic signature of BRIDGET CARVER DPM on 08/12/2025 at 11:35 AM CDT Sign off status: Pending * Provider: Roosevelt Carver DPM Date: 0 07/08/2025 Generated for Kevin figueroa/Jordan/Sissy on: 1 11:35 AM CDT
--- OUTSIDE RECORDS SUMMARY | 2025-07-29 07:40 | XMS_ITS ---
Author Organization [facility] Address [address] [place], [place] [address] Care Team Providers Care Blender Helper Name Role Phone CANDACE MORALES Unavailable [phone] Answer, Declined Unavailable Unavailable BRIDGET CARVER Unavailable [phone] REASON FOR VISIT follow up Encounters Encounter Location Date Provider Diagnosis [facility] [place] [address] [place], [place] [id number] 07/29/2025 BRIDGET CARVER Plan Of Treatment No Information Progress Notes * LEOBARDOPadminiRavinB:1955 (70 yo F)Acc No.[id number]:07/29/2025 Patient: Coty MEADE Provider: Roosevelt Carver DPM :1955 A ge:69 Y S ex:Female Date:07/29/2025 [facility] [facility] Subjective: * Chief Complaints: * 1 . Follow up. * Medical History: Objective: * Vitals: Assessment: Plan: * Treatment: * Billing Information: * Visit Code: * Procedure Codes: * Electronic signature of BRIDGET CARVER DPM on 08/12/2025 at 11:35 AM CDT Sign off status: Pending * Provider: Roosevelt Carver DPM Date: 1 Generated for Kevin figueroa/Jordan/Kristynitting on: 1 11:35 AM CDT
--- NOTE | ~2025-08-12 | CT_ITS ---
Coty Cole EXAMINATION: CT abdomen pelvis w con COMPARISON: Comparison 02/11/2025. HISTORY: f/u mesenteric panniculitis TECHNIQUE: Axial images were obtained through the abdomen, pelvis post administration of IV contrast. Oral contrast was also administered. Coronal reconstruction images were obtained from the axial views. CT scan performed using dose optimization techniques including the following automated exposure control; adjustment of mA and/or kV; use of iterative reconstruction technique. Automatic exposure control was used to reduce radiation dose. Permanent radiation dose record is archived to PACS. FINDINGS: CT abdomen: LUNG BASES: Right middle lobe infiltrate. LIVER: Mild hepatic steatosis. SPLEEN: Unremarkable. KIDNEYS: Right Kidney: Unremarkable. No calculi. No hydronephrosis. Left Kidney: Unremarkable. No calculi. No hydronephrosis ADRENAL GLANDS: There is a large left adrenal lesion measuring 1.8 x 1.9 cm incompletely evaluated possible benign adrenal adenoma, relatively stable compared to the prior study, outpatient MRI is suggested to assess. PANCREAS: Unremarkable. GALLBLADDER/BILIARY: Unremarkable. No biliary dilatation. STOMACH AND ESOPHAGUS: Small hiatal hernia. BOWEL/MESENTERY: Moderate fecal content. Moderate diverticulosis. No colitis or diverticulitis. Appendix normal. Ill-defined stranding within the mesentery with mass effect upon the adjacent small bowel and prominent lymph nodes relatively unchanged compared to the prior exam. There are no thickened or dilated loops of small bowel appreciated. ADENOPATHY/RETROPERITONEUM: No lymphadenopathy. AORTA/VASCULATURE: Normal caliber aorta. FREE FLUID OR FREE AIR: No free fluid.. CT pelvis: SOLID ORGANS/REPRODUCTIVE: Post hysterectomy. No adnexal mass. BLADDER: Circumferential thickening of the bladder wall with mucosal hyperemia. OSSEOUS STRUCTURES: No acute osseous abnormality.No suspicious lesions. OVERLYING SOFT TISSUES: Unremarkable. IMPRESSION: 1. Relatively stable changes of probable mild mesenteric panniculitis. 2. Cystitis. 3. Incidental findings above Reviewed, dictated and finalized at location P.
[2025-08-12 10:32] LABS: Estimated Glomerular Filt Rate 55
--- OUTSIDE RECORDS SUMMARY | 2025-08-12 11:34 | XMS_ITS | Clinical Summary ---
Author Organization [facility] Address [address] [place] [address] Care Team Providers Care Doula Name Role Phone Gerald De La Cruz MD Primary Care Provider [phone] Source Comments [facility],non-owned Affiliates and Associated Physician Practices is amultiple site organization consisting of ambulatory clinics and hospital sitesin [place], [place], [place] and [place]. This disclosure is being madepursuant to the Care Everywhere program and may not contain all information available regarding this patient. Last updated 18.[facility] Allergies No known active allergies Medications * [...] fluticasone propionate (FLONASE) 50 MCG/ACT nasal spray [place] 1 spray into each nostril as directed [...] Plan: Foot pain ??? Neuroma. Send to Generalist for further evaluation. RUQ abdominal pain 04/11/2019 [...] 36.8 C (98.3 F) 10/08/2021 7:07 AM TRADER Respiratory Rate 16 03/01/2022 8:17 AM CDT Oxygen Saturation 96% 10/08/2021 7:07 AM TRADER Inhaled Oxygen Concentration - - Weight 89.8 kg (198 lb) 03/01/2022 8:17 AM CDT Height 165.1 cm (5' 5) 03/01/2022 8:17 AM CDT Body Mass Index [...] SCREENING 08/04/1974 PNEUMOCOCCAL VACCINE 50+ (1 of 1 - PCV) 2006 ZOSTER VACCINE (1 of 2) 2006 SCREENING FOR DIABETES 10/06/2024 , 10/05/2021, 10/05/2021, Additional history exists DEPRESSION SCREENING 10/28/2024 DTAP/TDAP/TD VACCINES (2 - Td or Tdap) 05/09/2025 05/09/2015, 10/28/2005 COVID-19 VACCINE (3 - season) 2025 02/21/2021, 01/24/2021 INFLUENZA VACCINE (#1) 2025 , 06/29/2021, 08/15/2020, Additional history exists LIPID TESTING 10/05/2026 10/05/2021 Respiratory Syncytial Virus (RSV) Vaccine Pt: or over 60 yrs (1 - 1-dose 75+ series) 2031 HEPATITIS B VACCINE Aged Out No longe [...] METABOLIC PANEL AM Draw 10/06/2021 5:41 AM TRADER LIPID PROFILE AM Draw 10/05/2021 5:02 AM TRADER from Last 3 Months or Most Recently Relevant to Health Maintenance Results * (ABNORMAL) COMPREHENSIVE METABOLIC PANEL (10/06/2021 5:41 AM TRADER) [facility] Glucose 100 70 - 105 mg/dL 10/06/2021 6:28 AM [facility] Sodium 131(L) 136 - 145 mmol/L 10/06/2021 6:28 AM [facility] Potassium 3.8 3.5 - 5.1 mmol/L 10/06/2021 6:28 AM [facility] Chloride 97(L) 98 - 107 mmol/L 10/06/2021 6:28 AM [facility] CO2 24 23 - 31 mmol/L 10/06/2021 6:28 AM [facility] Calcium 9.7 8.4 - 10.4 mg/dL 10/06/2021 6:28 AM [facility] Anion Gap 10 8 - 18 mmol/L 10/06/2021 6:28 AM [facility] BUN 15 9.8 - 20.1 mg/dL 10/06/2021 6:28 AM [facility] Creatinine 0.86 0.57 - 1.11 mg/dL 10/06/2021 6:28 AM [facility] Alkaline Phosphatase 74 40 - 150 U/L 10/06/2021 6:28 AM [facility] ALT 9 0 - 61 U/L 10/06/2021 6:28 AM [facility] AST 16 5 - 34 U/L 10/06/2021 6:28 AM [facility] Protein Total 6.8 6.4 - 8.3 gm/dL 10/06/2021 6:28 AM [facility] Albumin 3.8 3.2 - 4.6 gm/dL 10/06/2021 6:28 AM [facility] Bilirubin Total 0.6 0.2 - 1.2 mg/dL 10/06/2021 6:28 AM [facility] eGFR by MDRD >60 >60 mL/min/1.7 3m2 10/06/2021 6:28 AM [facility] eGFR by MDRD >60 >60 mL/min/1.7 3m2 10/06/2021 6:28 AM [facility] Blood BLOOD SPECIMEN / Unknown Lab Venipuncture / Unknown 10/06/2021 5:41 AM TRADER 10/06/2021 5:55 AM [facility] Dana Álvarez MD LAB - CHEMISTRY ORDERABLES Final Result [facility] [address] [facility] Staff Ranker [place] [phone] * LIPID PROFILE (10/05/2021 5:02 AM TRADER) Cholesterol 185 <200 mg/dL 10/05/2021 6:20 AM TRADER [facility] Triglycerides 99 <150 mg/dL 10/05/2021 6:20 AM TRADER [facility] HDL Cholesterol 44 >40 mg/dL 6:20 AM TRADER [facility] LDL Calculated 121 <130 mg/dL 10/05/2021 6:20 AM TRADER [facility] VLDL Calculated 20 <=30 mg/dL 6:20 AM TRADER [facility] Chol HDL Ratio 4.2 <4.5 10/05/2021 6:20 AM TRADER [facility] LDL/HDL Ratio 2.8 <5.0 10/05/2021 6:20 AM TRADER [facility] Blood BLOOD SPECIMEN / Unknown Lab Venipuncture / Unknown 10/05/2021 5:02 AM TRADER 10/05/2021 5:34 AM TRADER Cydney Ha CIVIL LAWYER-ACCESSIONER LAB - CHEMISTRY ORDERABL ES Final Result [facility] [address] [place] [phone] from Last 3 Months or Most Recently Relevant to Health Maintenance Insurance MEDICARE [employer] MANAGED MEDICARE ADV MANAGED MEDICARE ADV Member Subscriber Plan / Payer (Ef fective 2021-Present) Name:Mis Cole Relation to Subscriber:Self Name:RIRICathiMIS Payer ID:[id number] (NAIC) Type:Medicare-Managed Care Address: [place] [phone] [facility] MANAGED MEDICARE ADV Advance Directives * Full Code (Latest Code Status on File) Date Activated Date Inactivated Comments 10/04/2021 11:43 PM 10/08/2021 12:45 PM Care Teams Doula Relationship Specialty Start Date End Date Gerald De La Cruz MD [address] [address] PCP - General 02/26/22
--- OUTSIDE RECORDS SUMMARY | 2025-08-12 11:34 | XMS_ITS | Encounter Summary ---
Author Organization [facility] Facility Care Team Providers Care Cutting Room Supervisor Name Role Phone Lindy Haddad Primary Care Provider [phone] Gerald De La Cruz MD Primary Care Provider [phone] Niki Reardon TELETYPEWRITER OPERATOR Unavailable [phone] Kathleen Lomeli NP Primary Care Provider [phone] Encounter Details Date Type Department Care Team (Latest Contact Info) Description 03/27/2018 Orders Only [facility] CLINCONV ProviderJeff MD [address] [place] [address] Social History Tobacco Use Types Packs/Day Years Used Date Smoking Tobacco: Never Assessed Alcohol Use Standard Drinks/Week Comments Yes 0 (1 standard drink = 0.6 oz pur e alcohol) Comments Unknown Sex and Gender Information Value Date Recorded Sex Assigned at Not on file Legal Sex Female 8:42 AM MAT CUTTER Gender Identity Female 08/28/2019 4:50 PM CDT [...] on filedocumented in this encounter Care Teams Cutting Room Supervisor Relationship Specialty Start Date End Date Lindy Haddad PA [address] [facility] [address] [place] [address] PCP - General Internal Medicine 02/24/19 01/24/22 Gerald De La Cruz MD [address] [place] [address] PCP - General Family Medicine 01/25/22 02/25/25 Kathleen Lomeli NP [address] [facility] [address] [place] [address] PCP - General Internal Medicine 02/26/25 Niki Reardon NP [address] [address] Psychiatry 01/25/22 07/06/24 documented as of this encounter
--- OUTSIDE RECORDS SUMMARY | 2025-08-12 11:35 | XMS_ITS | Patient Health Record ---
Author Organization [facility] Address [address] [place], [place] [id number] Care Team Providers Care Correspondence Specialist Name Role Phone CANDACE MORALES Unavailable [phone] Answer, Declined Unavailable Unavailable BRIDGET MACIAS Unavailable [phone] Allergies No Known Allergies Reason For Referral No Information Medications Medication SIG (Take, Route, Fr equency, Duration) Notes Start Date End Date Status Meloxicam 15 MG 1 tablet Orally Once a day; Duration: 30 day(s) 08/03/2025 09/01/2025 Active Social History Tobacco Use: Social History Observation Description Date Details (start date - stop date) Never Smoker NA - NA Tobacco Control (Standard) Question Answer Notes Tobacco use: Nonsmoker Vital Signs Height-cm 162.56 cm 04/29/2025 Weight-kg 88.45 kg 04/29/2025 Height 64 in 04/29/2025 Weight 195 lbs 04/29/2025 BMI 33.47 kg/m2 04/29/2025 Encounters Encounter Location Date Provider Diagnosis [facility] [place] [address] [place] [id number] 06/03/2025 BRIDGET MACIAS 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 ; Lesion of plantar nerve, 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 ; Pain in right foot M79.671 and Left foot pain M79.672 [facility] [place] [address] [place], [place] [id number] 04/29/2025 BRIDGET MACIAS 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 ; Lesion of plantar nerve, 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 The patient was instructed on its use. Plan Of Treatment No Information Insurance Providers Payer Name Payer Address Payer Phone Subscriber Number Group Number Insured Name Patient Relationship to Insured Coverage Start Date Coverage End Date [facility] [address] [address] [place], [place] [id number] Coty Cole Self - patient is the insured Medical (General) History Medical History History ICD Code acid reflux GERD Bladder infections Back Trouble Psychiatric Disorder high blood pressure Surgical History Surgery Date(Month/Year) Hysterectomy 2003 knee surgery 2007
--- OUTSIDE RECORDS SUMMARY | 2025-08-12 11:35 | XMS_ITS | Clinical Summary ---
Author Organization [facility] [address] [facility] Address [address] [place] [address] Care Team Providers Care Town Manager Name Role Phone Kathleen Lomeli NP Primary Care Provider Allergies No known active allergies Medications venlafaxine XR (EFFEXOR-XR) 150 mg 24 hr capsule Taking 225 daily 0 Active cholecalciferol (VITAMIN D-3) 5,000 unit capsule Take 1 capsule (5,000 Units total) by mouth daily Active cyanocobalamin (Vitamin B-12) 1,000 mcg tablet Take 1 tablet (1,000 mcg total) by mouth daily Active multivitamin with minerals tablet Take 1 tablet by mouth daily Active potassium 99 mg tablet Take by mouth Active traZODone (DESYREL) 150 mg tabletIndications: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) Take 1 tablet (150 mg total) by mouth nightly at bedtime 90 tablet 3 3 Active lidocaine (LIDODERM) 5 %Indications:Chroni c midline thoracic back pain Place 1 patch on the skin daily 30 patch 1 4 Active omeprazole (PriLOSEC) 40 mg [...] mouth daily 90 tablet 3 5 Active rosuvastatin (CRESTOR) 20 mg tabletIndications:M ixed hyperlipidemia TAKE 1 TABLET(20 MG) BY MOUTH DAILY 90 tablet 1 5 Active amLODIPine (NORVASC) 10 mg tablet TAKE 1 TABLET(10 MG) BY MOUTH DAILY 90 tablet 1 5 Active carvediloL (COREG) 25 mg tablet TAKE 1 TABLET(25 MG) BY MOUTH TWICE DAILY 200 tablet 1 5 Active tirzepatide, weight loss, (Zepbound) 2.5 mg/0.5 mL pen injectorIndications :Weight gain Inject 0.5 mL (2.5 mg total) under the skin every 7 days 3 mL 1 5 Active Active Problems Problem Noted Date Diagnosed Date Weight gain 07/15/2025 Encounter for Medicare annual wellness exam 06/28 [...] had a colonoscopy few years ago at [facility]. She takes Levsin as needed with good [...] CT Assessment & Plan (12/04/2020 8:21 PM HYDRO EXCAVATION OPERATOR): Check CXR Recommend referral to pulmonary Medicare [...] vaccinations. Labs as ordered Look into available defect repairer glassware in the area. Hopefully will be able to set up with a [facility] provider but there may be some outside the group as well Reviewed medications, medical history. Continuing the current regimen for now Having a frozen foods manager eventually will probably be a good move as well. Continue p.r.n. Levsin and omeprazole. If diverticulitis symptoms start to recur, it would be best to follow-up sooner rather than later. If we catch it early, we may be able to avoid any kind of hospital stay, surgical risk etc.. Assessment & Plan (10/09/2020 9:10 AM HYDRO EXCAVATION OPERATOR): Encouraged healthy lifestyle, good nutrition and exercise. Encouraged Calcium and Vitamin D and weight bearing exercise for bone health. Reviewed immunizations. Reviewed age appropirate screenings. Medicare Wellness Documentation is completed within the chart Breast cancer screening by mammogram 10/09/2020 Assessment & Plan (10/09/2020 9:10 AM HYDRO EXCAVATION OPERATOR): Mammogram order provided Myopia 10/08/2020 Combined forms of age-related cataract 0 Presbyopia 10/08/2020 BMI 31.0-31.9,adult 08/15/2020 Assessment & Plan (02/26/2025 11:30 AM CDT): Discussed the patients BMI: The BMI is above average BMI management is complete. BMI follow-up includes: Nutrition Counseling and education provided Assessment & Plan (09/30/2020 11:53 AM HYDRO EXCAVATION OPERATOR): Obesity is unchanged. Discussed the patient's BMI. [...] daily Assessment & Plan (10/09/2020 9:09 AM HYDRO EXCAVATION OPERATOR): Continue PPI Assessment & Plan (04/23/2020 8:35 PM CDT): Discussed GERD at length including anatomy, behavioral changes (raise HOB, meal timings), dietary changes and medication options. Reviewed risks, benefits alternatives, side effects and proper use. Followup if sxs worsen or has hematochezia or hematemeis. Start pPI Slow transit constipation 04/23/2020 Assessment & Plan (10/09/2020 9:09 AM HYDRO EXCAVATION OPERATOR): Increase fiber, exercise, water. Add stool softner.bid If sxs persist, may use Miralax. Assessment & Plan (04/23/2020 8:35 PM CDT): Increase fiber, exercise, water and colace. Reviewed warning signs of an acute abdomen BMI 32.0-32.9,adult 01/22/2020 Assessment & Plan (07/15/2025 10:57 AM CDT): Discussed the patients BMI: The BMI is above average BMI management is complete. BMI follow-up includes: Nutrition Counseling and education provided Assessment & Plan (01/22/2020 8:09 AM CDT): Obesity is unchanged. Discussed the patient's BMI. The BMI is above average. BMI management plan is completed. BMI Follow-up includes: nutrition counseling, exercise counseling and education provided. Obesity (BMI 30-39.9) 04/09/2019 Assessment & Plan (10/10/2023 1:46 PM HYDRO EXCAVATION OPERATOR): BMI 30.4 Discussed diet modifications including increasing [...] up. Assessment & Plan (09/30/2020 11:53 AM HYDRO EXCAVATION OPERATOR): Obesity is unchanged. Discussed the patient's BMI. [...] provided. Assessment & Plan (09/04/2019 9:51 PM HYDRO EXCAVATION OPERATOR): Obesity is unchanged. Discussed the patient's BMI. [...] 04/09/2019 Assessment & Plan (10/09/2020 9:10 AM HYDRO EXCAVATION OPERATOR): Pre-diabetes is a precursor to Dm. Stressed importance of working on diet (decrease your simple sugars and one carbohydrate with each meal) and increase you exercise to achieve weight loss and this will help prevent you from progressing to diabetes. Assessment & Plan (09/04/2019 9:54 PM HYDRO EXCAVATION OPERATOR): This is a significant, separately identifiable problem [...] physical Assessment & Plan (10/09/2020 9:10 AM HYDRO EXCAVATION OPERATOR): Encouraged patient to follow fat/low chol diet like the Mediterranean diet. Increase good fats in the diet. Increase exercise. Monitor labs as needed. Assessment & Plan (09/04/2019 9:52 PM HYDRO EXCAVATION OPERATOR): Encouraged patient to continue low fat/low chol [...] psychiatrist Assessment & Plan (10/09/2020 9:11 AM HYDRO EXCAVATION OPERATOR): Managed by her psychiatrist Menopause 01/30/2017 Mixed [...] too. Assessment & Plan (09/04/2019 9:54 PM HYDRO EXCAVATION OPERATOR): This is a significant, separately identifiable problem [...] physical Assessment & Plan (11/14/2020 10:06 AM HYDRO EXCAVATION OPERATOR): Readings are high at home but unsure if cuff is accurate. She will come in tomorrow to calibrate the cuff before adjusting the medication. Assessment & Plan (10/09/2020 9:12 AM HYDRO EXCAVATION OPERATOR): This is a significant, separately identifiable problem [...] readings. Assessment & Plan (09/04/2019 9:51 PM HYDRO EXCAVATION OPERATOR): Bp is stable/in acceptable range for any [...] 10/09/202004/02 Assessment & Plan (10/09/2020 9:10 AM HYDRO EXCAVATION OPERATOR): Refer for screening colonoscopy Hearing loss of left ear due to cerumen impaction 09/30/2020 04/02/2024 Assessment & Plan (10/09/2020 9:12 AM HYDRO EXCAVATION OPERATOR): This is a significant, separately identifiable problem that was evaluated and managed on the same day as the wellness exam Start otc DeBrox as plug appears very hard. Followup in a few weeks to wash ears in the office is sxs persist. Chronic pain of right thumb 08/15/2020 04/02/2024 Assessment & Plan (09/25/2020 9:38 PM HYDRO EXCAVATION OPERATOR): May use NSAID and ice but recommend referral for definitive treatment. Will hold off on xrays and defer to Ortho since there is no known injury. Need for immunization against influenza 08/15/2020 10/09/2020 Assessment & Plan (09/25/2020 9:39 PM HYDRO EXCAVATION OPERATOR): Updated in office today Generalized abdominal pain 04/23/2020 0 04/02/2024 Assessment & Plan (04/23/2020 8:33 PM CDT): Sxs of GERD and constipation. Will focus on these dx and if sxs persist, may need additional workup Gastritis 01/24/2020 04/02/2024 Assessment & Plan (05/01/2022 11:23 AM CDT): She reportedly had endoscopy at [facility] that revealed gastritis. Takes PPI and p.r.n. Levsin. I will obtain and review the previous endoscopy report. Advised to continue p.r.n. Levsin and PPI. Assessment & Plan (01/24/2020 1:47 PM CDT): Start NSAIDs Will monitor. If sxs persists, may consider imaging/referral to PT but will wait until after COVID Breast cancer screening by mammogram 09/04/2019 01/24/2020 Assessment & Plan (09/04/2019 9:52 PM HYDRO EXCAVATION OPERATOR): Mammogram order provided Medicare annual wellness visit, subsequent 09/04/2019 01/24/2020 Assessment & Plan (09/04/2019 9:52 PM HYDRO EXCAVATION OPERATOR): Encouraged healthy lifestyle, good nutrition and exercise. Encouraged Calcium and Vitamin D and weight bearing exercise for bone health. Reviewed immunizations Reviewed age appropirate screenings. Documenation on the chart Left foot pain 04/11/2019 04/02/2024 Assessment & Plan (04/11/2019 3:16 PM CDT): Foot pain ??? Neuroma. Send to Space Control Supervisor for further evaluation. RUQ abdominal pain 04/11/2019 4 Assessment & Plan (09/04/2019 9:51 PM HYDRO EXCAVATION OPERATOR): This is a significant, separately identifiable problem [...] 20 Assessment & Plan (09/04/2019 9:52 PM HYDRO EXCAVATION OPERATOR): Obesity is unchanged. Discussed the patient's BMI. [...] 04/02/2024 Overview (08/29/2020): unknown irritant. Referred to Triple Valve Mechanic Asthma 03/13/2014 11/14/2020 Overview (01/31/2017): Asthma Assessment & Plan (04/11/2019 3:18 PM CDT): Encounters Date Type Department Care Team Description 07/15/2025 11:00 AM CDT Office Visit [facility] Family [facility] [address] [phone] Kathleen Lomeli NP Encounter for Medicare annual wellness exam (Primary Dx); BMI 32.0-32.9,adult; Obesity (BMI 30-39.9); Encounter for screening mammogram for malignant neoplasm of breast; Breast cancer screening by mammogram; Post-menopausal; Weight gain; Left ear pain from Last 3 Months Immunizations Immunization Administration Dates Next Due Influenza, Quadrivalent, Hig h Dose, Preservative Free, Intrr 10/10/2023,09/04/2022 Influenza, Quadrivalent, Spl it, Intramuscular 07/27/2020 Influenza, Quadrivalent, Spl it, Preservative Free, Intramuscular 08/15/2020,09/04/2019,07/29/2018,08/23 Influenza, Trivalent, High D ose, Split, Preservative Free, Intramuscular 08/06/2024 Influenza, Trivalent, IM (MDV) 08/15/2016 Influenza, Unspecified 07/12/2025,2024(Deferred: Patient Refused),10/28/2022(Deferred: Patient Refused),10/28/2021(Deferred: Patient Refused),07/19/2021,06/29/2021, 018 Pneumococcal Conjugate Pcv20 07/07/2024 Sars-CoV-2, Unspecified 07/12/2025 Td, adsorbed 10/28/2005 Tdap 05/09/2015 Surgical History Surgery Date Site/Laterality Comments OTHER SURGICAL HISTORY L KNEE FRACTURE: PINNED OTHER SURGICAL HISTORY 10/28/2003 - 10/27/2004 ABNL PAP/ HPV: Hysterectomy, total abdominal, BSO TONSILLECTOMY Tonsillectomy HYSTERECTOMY 2004 COLONOSCOPY 08/11/2010 KNEE SURGERY Left ADENOIDECTOMY CATARACT EXTRACTION May 2022 FRACTURE SURGERY Medical History Medical History Date Comments Hx Other Medical L KNEE FRACTURE Hx Other Medical ABNL PAP/ HPV H/O degenerative disc disease Arthritis Allergic Anxiety 1987 Depression 1987 Hypertension 1987 Hyperlipidemia GERD (gastroesophageal reflux disease) 2014 Headache Vitamin D deficiency Diverticulosis Scoliosis deformity of spine Gastritis last EGD in 2020 Lung nodule Family History Medical History Relation Name Comments No Known Problems Brother 1 No Known Problems Brother 2 Arthritis Daughter 1 Rosio Bryant Depression Daughter 1 Rosio Hurtado Depression Daughter 2 Nina Laoksana Hypertension Daughter 2 Nina Laoksana Obesity Daughter 2 Nina Booth Rashes / Skin problems Daughter 2 Nina Booth Brain cancer Father Cancer -brain; Arthritis Maternal Grandfather Kneisel Leukemia Mother Cancer -leukemi a; Lung cancer Mother Cancer -lung; Diabetes Paternal Grandmother Kareen Diabetes type II Paternal Grandmother Kareen [place] -Type 2; Relation Name Status Comments Brother 1 Alive Brother 2 Alive Daughter 1 Rosio Hurtado Daughter 2 Nina Booth Father Maternal Grandfather Caitsel Alive Mother Paternal Grandmother Kareen Social History Tobacco Use Types Packs/Day Years Used Date Smoking Tobacco: Never Cigarettes Passive Smoke Exposure: Never Smokeless Tobacco: Never Tobacco Cessation:Counseling Given: Not Answered Alcohol Use Standard Drinks/Week Comments Never 0 (1 standard drink = 0.6 oz pur e alcohol) PHQ-2 Answer Date Recorded PHQ-2 Total Score (If total score is 3 or more points, staff should administer the PHQ-9) 1 07/15/2025 Housing Stability Vital Sign Answer Danny e Recorded Unable to Pay for Housing in the Last Year Not o n file 01/25/2022 In the last 12 months, how many places have you lived? 3 01/25/2022 Unstable Housing in the Last Year Not on file 01/25/2022 PHQ-9 Answer Date Recorded PHQ-9 Total Score 12 01/04/2025 AUDIT-C Answer Date Recorded Q1: How often do you have a drink containing alcohol? Never 07/15/2025 Q2: How many drinks containi ng alcohol do you have on a typical day when you are drinking? Patient does not drink Q3: How often do you have si x or more drinks on one occasion? Never 07/15/2025 Comments No Sex and Gender Information Value Date Recorded Sex Assigned at Not on file Legal Sex Female 8:42 AM HYDRO EXCAVATION OPERATOR Gender Identity Female 08/28/2019 4:50 PM CDT Sexual Orientation Choose not to disclose 2018 4:50 PM CDT Obstetrics History Last Filed Vital Signs Vital Sign Reading Time Taken Comments Blood Pressure 130/70 07/15/2025 10:51 AM CDT Pulse 65 07/15/2025 10:51 AM CDT Temperature 37.2 C (98.9 F) 07/15/2025 10:51 AM CDT Respiratory Rate 18 01/04/2025 9:57 AM CDT Oxygen Saturation 94% 07/15/2025 10:51 AM CDT Inhaled Oxygen Concentration - - Weight 89.8 kg (198 lb) 07/15/2025 10:51 AM CDT Height 165.1 cm (5' 5) 07/15/2025 10:51 AM CDT Body Mass Index 32.95 07/15/2025 10:51 AM CDT Plan of Treatment Health Maintenance Due Date Last Done Comments Breast Cancer Screening-Mammogram 1955 Osteoporosis Screening-Bone Density Scan 1955 Zoster Vaccine (1 of 2) 2006 DTaP/Tdap/Td Vaccine (2 - Td or Tdap) 05/09/2025 05/09/2015, 10/28/2005 Covid-19 Vaccine (2023-2 5 season) 2026 07/12/2025, 10/23/2021, 02/21/2021, Additional history exists Depression Screening 07/15/2026 07/15/2025, 02/26/2025, 01/04/2025, Additional history exists Fall Risk Assessment 07/15/2026 07/15/2025, 02/26/2025, 07/07/2024, Additional history exists Well Visit 65+ 07/15/2026 07/15/2025, 11/2024, 07/07/2024, Additional history exists Colon Cancer Screening-Colonoscopy 01/11/2031 01/11/2021, 08/11/2010 Colon Cancer Screening-CT Colonography Discontinued 01/11/2021, 08/11/2010 Colon Cancer Screening-DNA Stool Discontinued 01/12/20 21, 08/11/2010 Colon Cancer Screening-FIT Discontinued 01/11/2021, Colon Cancer Screening-Sigmoidoscopy Discontinued 01/11/2021, 08/11/2010 Hepatitis C Screening Completed 03/15/2022 Hepatitis B Screening Completed 07/07/2024 Pneumococcal vaccine 65+ Completed 07/07/2024 Influenza Vaccine Completed 07/12/2025, , 10/10/2023, Additional history exists Procedures Procedure Name Priority Date/Time Associated Diagnosis Comments HEPATITIS C ANTIBODY Routine 03/15/2022 11:07 AM CDT Need for hepatitis C screening test COLONOSCOPY Routine 01/11/2021 from Last 3 Months or Most Recently Relevant to Health Maintenance Results * Hepatitis C antibody (03/15/2022 11:07 AM [...] GENERAL ORDERABLES Final Result Performing Organization Address City/State/[facility] Co dc Phone Number ALHAJI [id number] [address] Department [place] [address] * Colonoscopy (01/11/2021) Anatomical Region Laterality Modality Other Narrative 01/11/2021 Normal. Repeat in 10 years Historical Provider ENDOSCOPY PROCEDURES Ines l Result from Last 3 Months or Most Recently Relevant to Health Maintenance Insurance [employer] [facility] MEDICARE ADVANTAGE [facility] MEDICARE ADVANTAGE [facility] MEDICARE ADVANTAGE Care Teams Town Manager Relationship Specialty Start Date End Date Kathleen Lomeli NP [address] [place] [id number] PCP - General Internal Medicine 02/26/25
--- OUTSIDE RECORDS SUMMARY | 2025-08-12 11:35 | XMS_ITS | Encounter Summary ---
Author Organization [facility] Healthcare Address [address] [place] [address] Care Team Providers Care Mental Health Clinician Name Role Phone Gerald De La Cruz MD Primary Care Provider [phone] Niki Reardon DEHYDRATING PRESS OPERATOR Unavailable [phone] Kathleen Lomeli NP Primary Care Provider [phone] Encounter Details Date Type Department Care Team (Late st Contact Info) Description 02/26/2022 Telephone [facility] [address] [place] [address] Sheila Quintana, RT Social History Tobacco Use [...] on file Legal Sex Female 8:42 AM PHYSICIAN PRIMARY CARE SPORTS MEDICINE Gender Identity Female 08/28/2019 4:50 PM CDT Sexual Orientation Choose not to disclose 2018 4:50 PM CDT documented as of this encounter Plan of Treatment Not on file documented as of this encounter Visit Diagnoses Not on filedocumented in this encounter Care Teams Mental Health Clinician Relationship Specialty Start Date End Date Gerald De La Cruz MD [facility] [place] [address] PCP - General Family Medicine 01/25/22 02/25/25 Kathleen Lomeli NP [address] [facility] [address] [place] [address] PCP - General Internal Medicine 02/26/25 Niki Reardon NP [address] [address] Psychiatry 01/25/22 07/06/24 documented as of this encounter
--- OUTSIDE RECORDS SUMMARY | 2025-08-12 11:35 | XMS_ITS | Patient Health Record ---
Author Organization [facility] [employer] Address [address] [facility] [address] [facility] [address] [place] [address] Support Name Relationship Address Phone MIS BOOTH Guarantor Unknown [phone] Reason For Referral No Information Medications Medication SIG (Take, Route, Frequency, Duration) Notes Start Date End Date Status Ofloxacin 0.30% Solution Ophthalmic Active Omeprazole 40 MG Capsule Delayed Release Oral Active prednisoLONE Acetate 1 % Suspension Ophthalmic Active Ketorolac Tromethamine 0.5 % Solution Ophthalmic Active Losartan Potassium 100 MG Tablet Oral Active Venlafaxine HCl ER 150 MG Capsule Extended Release 24 Hour Oral Active amLODIPine Besylate 5 MG Tablet Oral Active hydroCHLOROthiazide 25 MG Tablet Oral Active Naltrexone HCl 50 MG Tablet Oral Active OSCIMIN SL 0.125 mg Tablet Sublingual Sublingual *Reorder from Pulmonx for eRx and Interaction Alerts* Active traZODone HCl 150 MG Tablet Oral Active Carvedilol 25 MG Tablet Oral Active BinaxNOW COVID-19 Ag Card Kit In Vitro *Reorder from Pulmonx for eRx and Interaction Alerts* Active buPROPion HCl ER (SR) 100 MG Tablet Extended Release 12 Hour Oral Active Meclizine HCl 25 MG Tablet Oral Active Social History Social History Additional Details Category Social Info Options Details Migrated Social History Migrated Social History Tobacco Years: Never smoker 03/06/2023 Plan Of Treatment No Information Insurance Providers Payer Name Payer Address Payer Phone Subscriber Number Group Number Insured Name Patient Relationship to Insured Coverage Start Date Coverage End Date [employer] Medicare Replacement/ Advantage - [employer] [address] [address] [place] [address] [id number] MIS BOOTH Self - patient is the insured For Life [address] [place] [id number] MIS BOOTH Self - patient is the insured
== END 2025-08-12 10:09 | disposition home or self-care (01) ==
PROVIDERS: Visit Provider Nurse Practitioner
DX: K65.4 Sclerosing mesenteritis (principal); N30.90 Cystitis, unspecified without hematuria
CPT/HCPCS: 74177; Q9967